=== PATIENT | female | born 1960 | race Caucasian/White ===

== ENCOUNTER 2018-06-26 15:20 | Outpatient (REF) | payer BC, SELFPAY ==
[2018-06-26 19:25] LABS: HGB 13.2 g/dL (12.0-15.5); Mean Corpuscular Hemoglobin 30.6 pg (27.0-33.0); Mean Corpuscular Volume 92.6 fL (80-95); Mean Platelet Volume 9.7 fL (8.0-11.0); Platelet Count 345 x1000/uL (130-400); RBC 4.32 m/cumm (4.00-5.20); RBC Distribution Width 13.4 % (11.7-14.6); White Blood Cell Count 6.69 k/cumm (4.4-10.8)
[2018-06-26 19:53] LABS: Iron 90 ug/dL (50-175); Total Iron Binding Capacity 274 ug/dL (250-450); Transferrin Sat 33 % (15-50)
[2018-06-26 20:11] LABS: ESR 13 MM/HR (0-30)
[2018-06-26 20:20] LABS: ALT 22 U/L (12-78); AST 25 U/L (15-37); Albumin 3.6 g/dL (3.4-5.0); Alkaline Phosphatase 99 U/L (46-116); Anion Gap 7.9 mmol/L (3-11); BUN 15 mg/dL (7-18); Bilirubin, Total 0.4 mg/dL (0.2-1.0); CO2 27.1 mmol/L (21.0-32.0); CREATININE 0.65 mg/dL (0.55-1.02); Calcium 8.7 mg/dL (8.5-10.1); Chloride 104 mmol/L (98-107); Ferritin 80 ng/mL (8-388); Folate 11.3 ng/mL (8.6-20.0); Glucose 111 mg/dL (70-100); Potassium 4.6 mmol/L (3.5-5.1); Sodium 139 mmol/L (136-145); TSH (W/Ref FT4) 2.21 uIU/mL (0.358-3.74); Total Protein 6.5 g/dL (6.4-8.2); Vitamin B12 444 pg/mL (193-986)
[2018-06-26 20:33] LABS: C-Reactive Protein 0.35 mg/dL (0.0-0.3)
[2018-06-28 09:29] LABS: Cyclic Citrullinated Peptide <2.5 U/mL (<5.0)
== END 2018-06-26 15:40 ==
LOC: NCHCN 15:20
PROVIDERS: PCP Family Medicine; Visit Provider Family Medicine
DX: M25.539 Pain in unspecified wrist (principal); L65.9 Nonscarring hair loss, unspecified
CPT/HCPCS: 80053; 85027; 85652; 86200; 82607; 82728; 82746; 83540; 83550; 84443; 86140

== ENCOUNTER 2018-06-27 01:37 | Outpatient (CLI) | payer BC, SELFPAY ==
--- NOTE | 2018-06-27 13:26 | DI.RAD_ITS ---
SYMPTOMS/DIAGNOSIS: LEFT SHOULDER PAIN, M25.512 LEFT SHOULDER: There are mild degenerative changes. There is no evidence of a fracture or dislocation.
== END 2018-06-27 01:57 ==
PROVIDERS: PCP Family Medicine; Visit Provider Family Medicine
DX: M25.512 Pain in left shoulder (principal); M19.012 Primary osteoarthritis, left shoulder
CPT/HCPCS: 73030

== ENCOUNTER 2018-07-19 18:16 | Outpatient (REF) | payer BC, SELFPAY ==
[2018-07-19 19:30] LABS: C-Reactive Protein 0.12 mg/dL (0.0-0.3)
[2018-07-21 10:29] LABS: Rheumatoid Factor <8 IU/mL (<12.5)
[2018-07-21 15:44] LABS: Lyme Ab w Rflx to Lyme Confirm Negative
[2018-07-24 13:27] LABS: ANA Interpretation Positive (NEGAT); ANA Titer Pattern 1:320 Speckled
== END 2018-07-19 18:36 ==
LOC: NCHCN 18:16
PROVIDERS: PCP Family Medicine; Visit Provider Family Medicine
DX: M25.40 Effusion, unspecified joint (principal)
CPT/HCPCS: 86038; 86140; 86431; 86618

== ENCOUNTER 2018-08-20 21:50 | Emergency (ER) | payer BC, SELFPAY ==
[2018-08-20 21:57] VITALS: BP 130/70; PULSE 73; RESP 16; TEMP 36.7; O2SAT 100
--- NOTE | 2018-08-20 22:52 | ED.GENADUL_ITS ---
Discharge Plan Disposition Patient Disposition: HOME Condition: Stable Discharge Details Chief Complaint: FacialProb Clinical Impression: Erythema of face, Head injury, acute, without loss of consciousness Reason For Visit: bumped head Primary Care Provider: Johnny Prather ED Provider: Jojo Charles Home Meds and New Rx's Prescriptions: Continued cholecalciferol (vitamin D3) [Vitamin D3] 2,000 UNIT capsule 2,000 unit PO DAILY RF: 0 Discharge Instructions Instructions: Cellulitis (ED), Sunburn (ED), Head Injury (ED) Additional Instructions: Apply topical Neosporin and/or ice to the left facial cheek. Take Tylenol as needed and directed for any pain. Follow-up with your primary care doctor in 1 week for reevaluation as needed. Return immediately to the emergency department any worsening or new concerning symptoms. Discharge Data Discharge Date/Time-TO BE ENTERED AT DEPARTURE: 08/20/18 23:08 Discharge Physician: Jojo Charles Medical Decision Making 58-year-old female who presents with left-sided facial redness and swelling since this afternoon. She admits to head injury earlier today in which she stood up quickly and hit the back of her head on a door. She admitted to some mild headache today 1/10 but denied any LOC, vomiting, dizziness, blurry vision, neck pain at the time or since her head injury. She states sometime this afternoon she noted left-sided facial redness with very mild tenderness to touch. She denies fever, nasal discharge, congestion, dental pain, recent injury, recent bite, new medication soaps, lotions, detergents. Discussed with patient that it appears unlikely that her left-sided facial redness and swelling with mild tenderness is due to her head injury. She stated that she was driving in the car today with the sun on her face, and she thinks it may be possibly a sunburn. As the left face is warm to touch, this could be a possibility. Other possibilities include an early sinus infection, dental infection, local minor skin infection, or allergy, although allergy seems less likely as there is no itching. Also discussed at length her head injury and that as she had no serious mechanism, no LOC, vomiting, altered mental status, severe headache, dizziness, no blood thinners, head injury appears minor. As patient states her headache is 1/10 and she has no other associated symptoms, CT head appears unnecessary and patient is agreeable. She is still offered a CT head but she declines at this time. Patient was recommended to apply ice and topical Neosporin to her left facial cheek. She is instructed to return immediately to the emergency department if she has any acute worsening of symptoms such as persistent or worsening headaches, vomiting, or any worsening signs of infection to her face. HPI General Mode of arrival: ambulatory . Date/Time Provider Initiated Documentation: 08/20/18 22:03 . Limitations to Documentation: no limitations . Information obtained by: patient . HPI Narrative: Pt is a 58-year-old female who presents with left-sided facial redness and swelling since this afternoon. She admits to head injury earlier today in which she stood up quickly and hit the back of her head on a door. She admitted to some mild headache today of level pain 110 but denied any LOC, vomiting, dizziness, blurry vision, neck pain at the time or since her head injury. She stated sometime later this afternoon she noted left-sided facial redness with very mild tenderness to touch . She denies fever, nasal discharge, congestion, dental pain, recent injury, recent bite, new medication soaps, lotions, detergents. She states the head injury did not concern her at all and that the only reason she came to the ED was because of the facial redness and she was unsure if the two were related. She denies any itching of face. Related Data Home Medications Medication Instructions Recorded Confirmed cholecalciferol (vitamin D3) 2,000 unit PO DAILY 11/23/17 08/14/18 [Vitamin D3] Allergies Allergy/AdvReac Type Severity Reaction Status Date / Time No Known Allergies Allergy Unverified 08/14/18 14:48 General Stated Complaint: FacialProb CARMELO: 3 Review of Systems Review of Systems All systems reviewed & are unremarkable except as noted in HPI and below Constitutional Reports as per HPI, Denies chills and Denies fever(s) Eyes Denies blurry vision ENT Denies dizziness, Denies sore throat and Denies throat swelling Cardiovascular Denies chest pain and Denies dyspnea Respiratory Denies dyspnea Gastrointestinal Denies abdominal pain, Denies diarrhea and Denies vomiting Genitourinary Denies hematuria and Denies dysuria Musculoskeletal Denies back pain and Denies numbness Integumentary/Breasts Denies lesions and Denies rash Neurologic Denies dizziness and Denies numbness Allergic/Immunologic Denies throat swelling [facility] Medical History Endometrial cancer (Acute) Multiple sclerosis Oculopharyngeal muscular dystrophy Surgical History History of eye surgery (Acute) Abdominal hysterectomy Herniated Disc Repair Oophrectomy, Both Social History Smoking/Tobacco Use Status: Former Tobacco Use alcohol intake: current alcohol intake frequency: a few times a month substance use type: does not use Exam Const General: cooperative, healthy appearing and no acute distress HENMT Head: normal to inspection, no contusions, no hematomas and no lacerations Ears: hearing grossly normal bilaterally, external ears normal and TM's normal bilaterally General nose exam: external nose normal Face images: 1. minimal erythema. No induration, fluctuance, rash, lesions Mouth: oral mucosae normal Teeth and gingiva: dentition normal Throat: posterior oropharynx normal Eyes General: appearance normal, both eyes and all related structures Pupils: PERRL EOM: EOM intact bilaterally Neck Neck: normal visual inspection and No submandibular swelling Lymphatic: no lymphadenopathy noted Resp Effort & Inspection: normal respiratory effort and able to speak in complete sentences Cardio Rate: regular rate Skin General skin exam: no rashes or lesions noted Neuro General: alert, awake, oriented x3 and moves all extremities Cranial Nerves: CN's II-XI intact bilaterally Cognition: normal cognition Speech: speech normal Motor: muscle tone normal throughout and strength 5/5 throughout Sensory Exam: no sensory deficits noted Extrem General: normal to inspection and full ROM Psych Appearance: grossly normal Mental Status: mental status grossly normal Speech and Movement: speech and movement normal Affect: normal affect Course Vital Signs Temperature 98.1 F 08/20/18 21:57 Pulse 73 08/20/18 21:57 Respiratory Rate 16 08/20/18 21:57 Blood Pressure 130/70 08/20/18 21:57 Pulse Oximetry 100 08/20/18 21:57 Temperature 98.1 F 08/20/18 21:57 Temperature Source Tympanic 08/20/18 21:57 Pulse 73 08/20/18 21:57 Respiratory Rate 16 08/20/18 21:57 Respiratory Effort 08/20/18 22:01 Blood Pressure 130/70 08/20/18 21:57 Pulse Oximetry 100 08/20/18 21:57 Oxygen Delivery Method Room Air 08/20/18 21:57 Oxygen Flow Rate 0 08/20/18 21:57 Pain Level 3 08/20/18 21:57
== END 2018-08-20 23:08 | disposition home or self-care (01) ==
PROVIDERS: Emergency Provider Physician Assistant; PCP Family Medicine
DX: S06.0X0A Concussion without loss of consciousness, initial encounter (principal); S00.83XA Contusion of other part of head, initial encounter; W22.8XXA Striking against or struck by other objects, initial encounter; Z53.29 Procedure and treatment not carried out because of patient's decision for other reasons
CPT/HCPCS: 99283

== ENCOUNTER 2018-08-22 15:39 | Outpatient (REF) | payer BC, SELFPAY ==
[2018-08-22 19:24] LABS: Creatine Kinase 206 U/L (26-192)
== END 2018-08-22 15:59 ==
LOC: NCHCN 15:39
PROVIDERS: PCP Family Medicine; Visit Provider Family Medicine
DX: R21 Rash and other nonspecific skin eruption (principal)
CPT/HCPCS: 82550

== ENCOUNTER 2018-10-02 00:36 | Outpatient (CLI) | payer BC, SELFPAY ==
--- NOTE | 2018-10-02 10:00 | DI.CT_ITS ---
SYMPTOMS/DIAGNOSIS: FACIAL PAIN LT, 1 MONTH PAIN WITH OVERLYING ERYTHEMA AND SWELLING, NOT CONSISTENT WITH INFECTION, R51 FACIAL CT: Post contrast exam was performed. The sinuses are clear throughout. The orbits and visualized portions of the brain appear normal. The [place] vasculature is well seen and appears normal. There is some artifact related to dental work. The mastoid air cells appear clear. There is ernesto bullosa of the left middle turbinate. No areas of bony destruction are seen. IMPRESSION: Negative facial CT. No evidence of mass, facial fracture or sinus disease.
[2018-10-02 10:28] LABS: CREATININE 0.79 mg/dL (0.55-1.02)
[2018-10-02] MEDS: Omnipaque 350 MG/ML 100 ML BTL IJ (11:26)
== END 2018-10-02 00:56 ==
PROVIDERS: PCP Family Medicine; Visit Provider Family Medicine
DX: R51 Headache (principal); L53.9 Erythematous condition, unspecified; R22.0 Localized swelling, mass and lump, head
CPT/HCPCS: 36415; 70487; 82565; J3490

== ENCOUNTER 2018-11-23 00:07 | Outpatient (CLI) | payer BC, SELFPAY ==
--- NOTE | 2018-11-23 13:28 | DI.MAMMO_ITS ---
SYMPTOMS/DIAGNOSIS: SCREENING, Z12.31 MAMMOGRAMS: Mammograms were interpreted according to the usual protocol including computer analysis with CAD system, tomosynthesis and C view imaging. The breasts are very dense. No dominant mass or clumped microcalcification identified in either breast. Current examination is compared with the previous examinations including September 2017 and there has been no gross interval change in appearance in comparison with the previous studies. CONCLUSION: No specific evidence of malignancy at this time. Routine screening examinations are suggested at yearly intervals in this age group according to the ACS/ACR guidelines. Category 1, breast density category D. MQSA ASSESSMENT OF FINDINGS: Negative. Category 1. Patient will receive a letter notifying them of these results. BI-RADS category D. The breasts are extremely dense, which lowers the sensitivity of mammography.
== END 2018-11-23 00:27 ==
PROVIDERS: PCP Family Medicine; Visit Provider Obstetrics & Gynecology
DX: Z12.31 Encounter for screening mammogram for malignant neoplasm of breast (principal)
CPT/HCPCS: 77063; 77067

== ENCOUNTER 2018-11-29 01:09 | Outpatient (CLI) | payer BC, SELFPAY ==
--- NOTE | 2018-11-29 14:52 | DI.MRI_ITS ---
SYMPTOM/DIAGNOSIS: LT SHOULDER PAIN, WEAKNESS, TENDINITIS LT ROTATOR CUFF, M75.82, DECREASED RANGE OF MOTION LEFT SHOULDER MRI: The study was carried out according to the usual protocol. There is intrasubstance isointensity in the distal supraspinatus tendon consistent with degenerative tendinosis. There is no evidence of a discrete tear. A small bursal surface partial thickness tear involving the insertional zone of the supraspinatus is suggested. There is no evidence of associated myotendinous reaction or muscular atrophy. The infraspinatus tendon is intact. The subscapularus and teres minor tendons are intact. The biceps long head is intact and maintains an appropriate course in the bicipital groove. The biceps labral anchor is intact. The glenohumeral ligaments are normal. No labral tear is seen. The cartilage is unremarkable. There is excessive T 2 hyperintensity in the subacromial and subdeltoid bursa with a small amount of bursal fluid consistent with mild peritendonitis/bursitis. There is no evidence of lymphadenopathy. Minimal degenerative hypertrophic bony changes involving the left AC joint are demonstrated without undersurface spurring or medial arch stenosis. Mild lateral acromial downsloping is noted with minimal undersurface excrescence formation producing mild lateral arch stenosis. The glenohumeral alignment is normal. There are no fractures or bony contusions. SUMMARY: There is a small, 4 by 4 mm. partial thickness bursal surface tear involving the infraspinatus insertional zone estimated at 30% thickness. There is no evidence of associated myotendinous retraction or muscle atrophy. There is mild associated peritendinitis bursitis. Mild intrasubstance degeneration of the distal supraspinatus tendon with no evidence of supraspinatus tear. There is mild lateral acromial downsloping which produces mild lateral arch stenosis.
--- NOTE | 2018-11-29 20:04 | DI.VRAD_ITS ---
EXAM: MR Left Upper Extremity Joint Without Contrast, Shoulder EXAM DATE/TIME: 11/29/2018 3:41 PM CLINICAL HISTORY: 58 years old, female; Pain; Shoulder; Left; Patient HX: Decreased rom, weakness TECHNIQUE: Imaging protocol: MR of the Left upper extremity without contrast. Exam focused on the shoulder. COMPARISON: CR XR shoulder LT complete 2+V 06/27/2018 1:16 PM FINDINGS: TENDONS: Supraspinatus: There is intrasubstance isointensity in the distal supraspinatus tendon consistent with degenerative tendinosis without discrete supraspinatus tendon tear. There is a small bursal surface partial thickness tear involving the insertional zone of the supraspinatus best appreciated on coronal T2 series 6 image 10 measuring about 4 mm longitudinal by 4 mm AP. No evidence of associated myotendinous retraction or muscular atrophy. Infraspinatus: Infraspinatus is intact. Subscapularis is intact. Subscapularis: See Infraspinatus Finding. Teres minor: Unremarkable. No evidence of tear. Biceps brachii, long head: The biceps long head tendon is intact and maintains an appropriate course in the bicipital groove. The biceps labral anchor complex is intact. LIGAMENTS: Glenohumeral: Unremarkable. Glenoid labrum: No labral tears are identified. Cartilage: Unremarkable. Fluid: No joint effusion or synovitis. Muscles: See Supraspinatus Finding. Soft tissues: There is excessive T2 hyperintensity in the subacromial/subdeltoid bursa with a small amount of bursal fluid consistent with mild peritendinitis/bursitis. Lymph nodes: No axillary adenopathy. Bones/joints: Minimal degenerative hypertrophic changes in the left a.c. joint without undersurface spurring or medial arch stenosis. Mild lateral acromial downsloping with minimal undersurface excrescence formation producing mild lateral arch stenosis. Glenohumeral alignment is normal. Reticular surfaces of the glenohumeral joint are well maintained. No fractures or bone contusions. IMPRESSION: 1. There is a small 4 x 4 millimeter partial-thickness bursal surface tear involving the infraspinatus insertional zone, estimated at 30% thickness. No evidence of associated myotendinous retraction or muscular atrophy. 2. Mild associated peritendinitis/bursitis. 3. Mild intrasubstance degeneration in the distal supraspinatus tendon with no evidence of supraspinatus tendon tear. 4. Mild lateral acromial downsloping producing mild lateral arch stenosis. Dictated and Authenticated by: Johnny Higgins MD. Ordering:MASTER Zapata MD
== END 2018-11-29 01:29 ==
PROVIDERS: PCP Family Medicine; Visit Provider Student in an Organized Health Care Education/Training Program
DX: M25.512 Pain in left shoulder (principal); M75.82 Other shoulder lesions, left shoulder; S46.021A Laceration of muscle(s) and tendon(s) of the rotator cuff of right shoulder, initial encounter; M75.52 Bursitis of left shoulder
CPT/HCPCS: 73221

== ENCOUNTER 2018-12-21 12:30 | Outpatient (REF) | payer BC, SELFPAY ==
[2018-12-23 22:22] LABS: Anaplasma phagocytophilum Negative (Negative); B. miyamotoi PCR Negative (Negative); Babesia divergens/MO-1 Negative (Negative); Babesia duncani Negative (Negative); Babesia microti Negative (Negative); Ehrlichia chaffeensis Negative (Negative); Ehrlichia ewingii/canis Negative (Negative); Ehrlichia muris eauclairensis Negative (Negative)
[2018-12-25 12:09] LABS: Lyme Ab w Rflx to Lyme Confirm Negative
== END 2018-12-21 12:50 ==
LOC: NCHCN 12:30
PROVIDERS: PCP Family Medicine; Visit Provider Family Medicine
DX: R21 Rash and other nonspecific skin eruption (principal)
CPT/HCPCS: 86618; 87798

== ENCOUNTER 2019-01-19 10:41 | Outpatient (REF) | payer BC, SELFPAY ==
[2019-01-21 21:33] LABS: Anaplasma phagocytophilum Negative (Negative); B. miyamotoi PCR Negative (Negative); Babesia divergens/MO-1 Negative (Negative); Babesia duncani Negative (Negative); Babesia microti Negative (Negative); Ehrlichia chaffeensis Negative (Negative); Ehrlichia ewingii/canis Negative (Negative); Ehrlichia muris eauclairensis Negative (Negative)
[2019-01-22 11:57] LABS: Lyme Ab w Rflx to Lyme Confirm Negative
== END 2019-01-19 11:01 ==
LOC: NCHCN 10:41
PROVIDERS: PCP Family Medicine; Visit Provider Family Medicine
DX: R21 Rash and other nonspecific skin eruption (principal)
CPT/HCPCS: 87798; 86618

== ENCOUNTER 2019-07-02 14:30 | Outpatient (CLI) | payer OTHER, SELFPAY ==
--- NOTE | 2019-07-02 11:58 | DI.RAD_ITS ---
EXAM: XR KNEE RT 3V AP,LAT,CHICHO INDICATION: BILAT KNEE PAIN, M25.569. COMPARISON: LEFT KNEE 3 VIEW COMPLETE from 12/14/2013 TECHNIQUE: 2D digital imaging was performed. FINDINGS: Joint spaces are well maintained. There is minimal periarticular spurring. No joint effusion is see n. IMPRESSION: No acute abnormality.
--- NOTE | 2019-07-02 11:58 | DI.RAD_ITS ---
EXAM: XR KNEE LT 3V AP,LAT,CHICHO INDICATION: BILAT KNEE PAIN, M25.569. COMPARISON: LEFT KNEE 3 VIEW COMPLETE from 12/14/2013 XR KNEE RT 3V AP,LAT,CHICHO from 07/02/2019 TECHNIQUE: 2D digital imaging was performed. FINDINGS: The joint spaces are well maintained. There is mild periarticular spurring. No joint effusion is se en. IMPRESSION: Minimal degenerative changes.
== END 2019-07-02 14:50 ==
PROVIDERS: PCP Family Medicine; Visit Provider Family Medicine
DX: M25.561 Pain in right knee (principal); M25.562 Pain in left knee; M17.12 Unilateral primary osteoarthritis, left knee
CPT/HCPCS: 73562

== ENCOUNTER 2019-07-03 00:50 | Outpatient (CLI) | payer OTHER, SELFPAY ==
--- NOTE | 2019-07-03 12:30 | DI.CT_ITS ---
EXAM: CT CHEST W CLINICAL HISTORY: OCULOPHARYNGEAL DYSTROPHY AND DERMATOMYOSITIS, INCREASED PULIDO, LOOKING AT LUNG PARE NCHYMA FOR SIGNS OF INTERSTITIAL INFLAMMATION TECHNIQUE: 100 cc Omnipaque 350 IV. COMPARISON: XR shoulder LT complete 2+V from 06/27/2018 FINDINGS: There is scarring at both lung apices. There are mild tree-in-bud type densities in the medial aspec t of the right lower lobe. Remainder of the lungs appear clear. There are no significant ground-gla ss opacities, evidence of consolidation, significant atelectasis or honeycombing. Tracheobronchial t ree appears normal. The heart size is normal. The aorta is normal in diameter. No adenopathy is se en. The visualized portions of the upper abdominal organs are unremarkable. No bony abnormalities a re seen. IMPRESSION: Mild biapical scarring. Mild tree-in-bud opacities in the medial right lung base.
[2019-07-03 12:35] LABS: CREATININE 0.62 mg/dL (0.55-1.02)
[2019-07-03] MEDS: Omnipaque 350 MG/ML 100 ML BTL IJ (13:17)
== END 2019-07-03 01:10 ==
PROVIDERS: PCP Family Medicine; Visit Provider Internal Medicine Rheumatology
DX: R06.09 Other forms of dyspnea (principal); J98.4 Other disorders of lung; G71.09 Other specified muscular dystrophies; M33.90 Dermatopolymyositis, unspecified, organ involvement unspecified; Z13.89 Encounter for screening for other disorder
CPT/HCPCS: 71260; 82565; J3490

== ENCOUNTER 2019-09-17 02:43 | Outpatient (CLI) | payer OTHER, SELFPAY ==
--- NOTE | 2019-10-18 12:35 | W.CARDEVENT ---
Date of service: 10/18/19 Time of Service: 12:35 Cardiac Event Recorder Cardiac Event Note: This is a 1 month event recorder ordered for the indication of palpitations. ?Patient was in normal sinus rhythm for the majority of the recording with an average heart rate of 57 bpm. ?There were 3 patient triggered events which were associated with sinus rhythm and sinus arrhythmia. ?There was one automatically triggered event which was associated with sinus rhythm. ?There was no episodes of atrial fibrillation, no episodes of ventricular tachycardia and no evidence of high degree heart block.
== END 2019-09-17 03:03 ==
PROVIDERS: PCP Family Medicine; Visit Provider Family Medicine
DX: R00.2 Palpitations (principal)
CPT/HCPCS: 93270

== ENCOUNTER 2020-03-26 01:37 | Outpatient (CLI) | payer BC, SELFPAY ==
--- NOTE | 2020-03-26 | DI.MAMMO_ITS ---
EXAM: MG MAMMO SCREENING CLINICAL HISTORY: SCREENING, Z12.39. TECHNIQUE: Bilateral full field digital CC and MLO mammographic images were obtained with 3D tomosyn thesis and utilizing computer aided detection (CAD). COMPARISON: 2009 through 2018 FINDINGS: Masses/Architectural Distortion: None seen. Microcalcifications: No suspicious pleomorphic-type are seen. Skin Thickening/Nipple Retraction: None. IMPRESSION: 1. No significant interval change with no specific features of malignancy noted. 2. Unless there is more urgent need, annual screening mammography is recommended, as per [place] [employer] guidelines. BI-RADS Category 1:Negative Breast Density Category D:Extremely Dense Breast Density Category D: The mammogram demonstrates the patient's breast tissue is dense. Dense cookie ast tissue is very common and is not abnormal but dense breast tissue can make it harder to find canc er on a mammogram. Also, dense breast tissue may increase their breast cancer risk. This information about the result of the mammogram report was provided to the patient to raise their awareness. Use th is report when you speak with the patient about their risks for breast cancer, which includes their f amily history. At that time, you may recommend for more screening tests (Ultrasound or MRI) as they m ight be useful based on their risk. A negative radiographic report should not delay biopsy if a dominant or clinically suspicious mass is present. Up to ten percent of cancers are not identified on mammography. A negative report may reinforce clinical impression. Adenosis and dense breasts may obscure an underlying neoplasm. False positive reports average 6 to 10%.
== END 2020-03-26 01:57 ==
PROVIDERS: PCP Family Medicine; Visit Provider Obstetrics & Gynecology
DX: Z12.31 Encounter for screening mammogram for malignant neoplasm of breast (principal); R92.2 Inconclusive mammogram
CPT/HCPCS: 77063; 77067

== ENCOUNTER 2021-03-20 11:17 | Outpatient (REF) | payer BC, SELFPAY ==
[2021-03-20 14:22] LABS: HCT 39.6 % (36.0-46.0); HGB 12.8 g/dL (11.2-15.7); MCHC 32.3 % (32.0-36.0); MPV 9.4 fL (8.0-11.0); Platelet Count 332 10^3/uL (130-400); RBC 4.26 10^6/uL (3.93-5.22); RDW 12.7 % (11.7-14.6); RDW-SD 43.8 fL; WBC 5.86 10^3/uL (4.4-10.8)
[2021-03-20 14:54] LABS: ALT 29 U/L (14-59); AST 22 U/L (15-37); Albumin 3.7 g/dL (3.4-5.0); Alkaline Phosphatase 94 U/L (46-116); Anion Gap 4.9 mmol/L (3-11); BUN 16 mg/dL (7-18); Bilirubin, Total 0.4 mg/dL (0.2-1.0); CO2 30.1 mmol/L (21.0-32.0); CREATININE 0.6 mg/dL (0.55-1.02); Calcium 9.1 mg/dL (8.5-10.1); Chloride 106 mmol/L (98-107); Glucose 99 mg/dL (74-106); Potassium 4.4 mmol/L (3.5-5.1); Sodium 141 mmol/L (136-145); TSH (W/Ref FT4) 1.69 uIU/mL (0.36-3.74); Total Protein 6.9 g/dL (6.4-8.2)
[2021-03-20 15:08] LABS: Bilirubin Negative (Negative); Blood Trace-intact (Negative); Clarity Clear (Clear); Glucose Negative (Negative); Ketones Negative (Negative); Leukocyte Esterase Negative (Negative); Nitrite Negative (Negative); Specific Gravity 1.015 (1.005-1.025); Urobilinogen 0.2 EU/dL (Up TO 0.2)
[2021-03-20 15:13] LABS: Bacteria Rare HPF (Negative); C & S Indicated? No; Casts Negative LPF (Negative); Crystals Negative HPF (Negative); Epithelial Cells Negative HPF (Negative); Mucus Negative (Negative); Other Cells Negative (Negative); RBC 0-2 HPF (0-2); WBC Negative HPF (0-5)
[2021-03-23 10:26] LABS: Lyme Ab w Rflx to Lyme Confirm Negative (Negative)
[2021-03-24 08:51] LABS: Anaplasma phagocytophilum Negative (Negative); B. miyamotoi PCR Negative (Negative); Babesia divergens/MO-1 Negative (Negative); Babesia duncani Negative (Negative); Babesia microti Negative (Negative); Ehrlichia chaffeensis Negative (Negative); Ehrlichia ewingii/canis Negative (Negative); Ehrlichia muris eauclairensis Negative (Negative)
== END 2021-03-20 11:18 | disposition home or self-care (01) ==
LOC: NCHCN 11:17
PROVIDERS: PCP Family Medicine; Visit Provider Family Medicine
DX: R53.83 Other fatigue (principal); R51.9 Headache, unspecified; W57.XXXA Bitten or stung by nonvenomous insect and other nonvenomous arthropods, initial encounter; T14.8XXA Other injury of unspecified body region, initial encounter; Z13.1 Encounter for screening for diabetes mellitus; M54.9 Dorsalgia, unspecified
CPT/HCPCS: 80053; 85027; 87798; 81003; 81015; 83036; 84443; 86618

== ENCOUNTER 2021-07-23 15:42 | Outpatient (REF) | payer BC, SELFPAY ==
[2021-07-27 11:18] LABS: Lyme Ab w Rflx to Lyme Confirm Negative (Negative)
== END 2021-07-23 15:43 | disposition home or self-care (01) ==
LOC: NCHCN 15:42
PROVIDERS: PCP Family Medicine; Visit Provider Family Medicine
DX: Z00.00 Encounter for general adult medical examination without abnormal findings (principal)
CPT/HCPCS: 86618

== ENCOUNTER 2021-09-01 02:56 | Outpatient (CLI) | payer BC, SELFPAY ==
--- NOTE | 2021-09-01 11:43 | DI.MAMMO_ITS ---
Exam(s) MAMMO SCREENING EXAM: MAMMO SCREENING CLINICAL HISTORY: SCREENING FOR BREAST CANCER Z12.39 TECHNIQUE: Bilateral full field digital CC and MLO mammographic images were obtained with 3D tomosyn thesis and utilizing computer aided detection (CAD). COMPARISON: Available for comparison. FINDINGS: Masses/Architectural Distortion: None seen. Microcalcifications: No suspicious pleomorphic-type are seen. Skin Thickening/Nipple Retraction: None. IMPRESSION: 1. No significant interval change with no specific features of malignancy noted. 2. Unless there is more urgent need, screening mammography is recommended, as per [place] [employer] guidelines. BI-RADS Category 1 - Negative Breast Density - Category D - Extremely dense Breast density category C or D implies that the patient has dense breast tissue. Dense breast tissue is very common and is not abnormal but dense breast tissue can make it harder to find cancer on a ma mmogram. Also, dense breast tissue may increase their breast cancer risk. This information about the result of the mammogram report was provided to the patient to raise their awareness. Use this report when you speak with the patient about their risks for breast cancer, which includes their family hist ory. At that time, you may recommend for more screening tests (Ultrasound or MRI) as they might be us eful based on their risk. A negative radiographic report should not delay biopsy if a dominant or clinically suspicious mass is present. Up to ten percent of cancers are not identified on mammography. A negative report may reinforce clinical impression. Adenosis and dense breasts may obscure an underlying neoplasm. False positive reports average 6 to 10%. Patient will receive a letter notifying them of these results.
== END 2021-09-01 03:16 ==
PROVIDERS: PCP Family Medicine; Visit Provider Family Medicine
DX: Z12.31 Encounter for screening mammogram for malignant neoplasm of breast (principal)
CPT/HCPCS: 77063; 77067

== ENCOUNTER 2021-09-16 15:48 | Outpatient (REF) | payer BC, SELFPAY ==
[2021-09-16 19:42] LABS: ESR 6 mm/hr (0-30)
[2021-09-16 19:45] LABS: C-Reactive Protein 0.27 mg/dL (0.0-0.3); Creatine Kinase 204 U/L (26-192)
[2021-09-16 20:13] LABS: Calculated LDL 66 mg/dL (<100); Cholesterol 149 mg/dL (<200); HDL Cholesterol 65 mg/dL (40-60); Triglyceride 92 mg/dL (<150)
[2021-09-18 13:14] LABS: Albumin 57.8 % (55.8-66.1); Total Protein 6.6 g/dL (6.3-8.2)
== END 2021-09-16 15:49 | disposition home or self-care (01) ==
LOC: NCHCN 15:48
PROVIDERS: PCP Family Medicine; Visit Provider Family Medicine
DX: R73.03 Prediabetes (principal); M13.89 Other specified arthritis, multiple sites; Z13.220 Encounter for screening for lipoid disorders
CPT/HCPCS: 80061; 82550; 85652; 83036; 84165; 86140

== ENCOUNTER 2021-12-12 14:15 | Outpatient (REF) | payer BC, SELFPAY ==
[2021-12-12 19:08] LABS: Abs Immature Grans 0.01 10^3/uL (0.0-0.06); Absolute Basophil Count 0.03 10^3/uL (0.0-0.2); Absolute Eosinophil Count 0.08 10^3/uL (0.0-0.7); Absolute Lymphocyte Count 1.25 10^3/uL (1.2-3.4); Absolute Monocyte Count 0.83 10^3/uL (0.1-0.8); Absolute Neutrophil Count 4.35 10^3/uL (1.2-6.7); Basophils % 0.5; Eosinophils % 1.2; HCT 38.7 % (36.0-46.0); HGB 12.4 g/dL (11.2-15.7); Immature Grans % 0.2; Lymphocytes % 19.1; MCH 30.3 pg (27.0-33.0); MCV 95 fL (80-95); MPV 9.6 fL (8.0-11.0); Monocytes % 12.7; Neutrophils % 66.3; Platelet Count 333 10^3/uL (130-400); RBC 4.09 10^6/uL (3.93-5.22); RDW 12.7 % (11.7-14.6); RDW-SD 44.2 fL; WBC 6.55 10^3/uL (4.4-10.8)
== END 2021-12-12 14:16 | disposition home or self-care (01) ==
LOC: LBN 14:15
PROVIDERS: PCP Family Medicine; Visit Provider Physician Assistant Medical
DX: R10.9 Unspecified abdominal pain (principal)
CPT/HCPCS: 85025

== ENCOUNTER 2022-01-20 20:11 | Emergency (ER) | payer BC, SELFPAY ==
[2022-01-20 20:20] VITALS: BP 109/71; PULSE 65; RESP 18; O2SAT 96
--- NOTE | 2022-01-20 20:45 | DI.RAD_ITS ---
Exam(s) XR HAND RT COMPLETE EXAM: XR HAND RT COMPLETE CLINICAL HISTORY: fall/pain. TECHNIQUE: 2D digital imaging was performed. COMPARISON: No exams were available for comparison FINDINGS: 3 views There is no evidence of fracture or dislocation. Bone density normal. No osseous lesions nor erosio ns. No radiopaque foreign body. IMPRESSION: No fracture evident DATA REPOSITORY: RADIATION DOSE DELIVERED:
--- NOTE | 2022-01-20 20:45 | DI.RAD_ITS ---
Exam(s) XR ELBOW RT COMPLETE EXAM: XR ELBOW RT COMPLETE CLINICAL HISTORY: fall/pain. TECHNIQUE: 2D digital imaging was performed. COMPARISON: No exams were available for comparison FINDINGS: Two views There is a distracted fracture of the olecranon process of the proximal ulna. No fractures evident o f the radial head and neck nor of the epicondyles. Cortical changes at the lateral epicondyle are mo st probably related to epicondylitis. Prominent soft tissue swelling over the olecranon bursa region noted IMPRESSION: There is an acute fracture of the olecranon on fossa with significant distraction of the fracture fra gments. Prominent overlying soft tissue swelling. DATA REPOSITORY: RADIATION DOSE DELIVERED:
--- NOTE | 2022-01-20 20:50 | ED.GENADUL_ITS ---
Discharge Plan Disposition Patient Disposition: HOME Condition: Stable Discharge Details Clinical Impression: Fracture of proximal end of right ulna Primary Care Provider: Hien Montiel ED Provider: Tien Ortega Home Meds and New Rx's Prescriptions: New oxycodone-acetaminophen [Percocet] 5-325 mg tablet 1 tab PO Q8H PRNQty: 8 0RF Continued cholecalciferol (vitamin D3) [Vitamin D3] 2,000 UNIT capsule 2,000 unit PO DAILY Label Comments: 11.23.17 pt states in winter/spring months.HE No Action acetaminophen 325 mg Tablet 650 mg PO PRN PRN ibuprofen [Motrin] 400 mg Tablet 400 mg PO Q6H Discharge Instructions Instructions: Elbow Fracture (ED) Additional Instructions: You have a fracture of your elbow that will require surgery. Wear padding, Mekhi wrap, sling until reevaluation with orthopedics. Percocet as directed, this medication may cause drowsiness and/or constipation, I recommend taking a stool softener while taking this medication. I personally spoke with Dr. Aguero from our orthopedic team, he will have his office reach out to in the next 24-48 hours and likely have surgery on Tuesday. Please watch for new or worsening symptoms and return to the ER for any concerns. Referrals: Benny Aguero MD [ [facility] STAFF PHYSICIAN] - Medical Decision Making This is a 61-year-old female who works knocked to the ground by her dog injuring her right elbow and hand. She reports mild pain at the hand, significant pain at the elbow. She is right-hand dominant. She states that she may have struck her head but denies LOC, headache, visual change, neck pain, vomiting, numbness, tingling, weakness. She is not anticoagulated. Patient with significant swelling and tenderness to the right elbow. Plan is to obtain x-ray of her right elbow and right hand. We will provide 4 mg IM morphine and her abrasion will be cleaned and dressed. X-ray of right hand unremarkable. X-ray of right elbow reveals a displaced olecranon fracture. I spoke with Dr. Aguero, orthopedics. He recommended CT of the elbow, a presurgical COVID test. Recommend either significant padding, Mekhi wrap, sling versus posterior slab splint. His office will contact the patient for likely surgery on Tuesday. The patient would prefer the cast padding, Mekhi wrap and sling. She feels as though the posterior slab would be too heavy and cumbersome. We did discuss that the posterior slab was likely more stable and protective. Mekhi wrap, ample cast padding and sling applied. Patient tolerated well. An additional 4 mg IM morphine given prior to discharge. We will provide a Percocet take-home pack and short-term analgesia prescription. Patient placed on the orthopedic list to help expedite outpatient care. Standard discharge and return precautions were provided. Patient understands, is agreeable to this plan, and has no additional questions or concerns upon discharge. This documentation was generated using [email or web address] system, please disregard any oddities of phrase or misspellings. Medical Records Medical records reviewed: Yes I reviewed the patient's medical records. Imaging Data Radiologic Study: Attestation: I personally reviewed and interpreted this imaging study as f kasias: Imaging: X-Ray Radiologist's impression: PROCEDURE INFORMATION: Exam: XR Right Hand Exam date and time: 01/20/2022 21:29 Age: 61 years old Clinical indication: Injury or trauma; Sprain or strain; Hand; Right; Injury date: 01/20/22; Injury details: Fall/pain TECHNIQUE: Imaging protocol: XR Right hand. Views: 3 or more views. COMPARISON: CR ARTHITIS SERIES- BLOSSOM HAND WRIST 08/04/2017 10:09 FINDINGS: Bones/joints: No acute fracture or subluxation. Scattered minor degenerative changes. Soft tissues: Unremarkable. IMPRESSION: No acute bony pathology. Radiologic Study #2: Attestation: I personally reviewed and interpreted this imaging study as follows: Imaging: X-Ray Radiologist's impression: PROCEDURE INFORMATION: Exam: XR Right Elbow Exam date and time: 01/20/2022 21:31 Age: 61 years old Clinical indication: Injury or trauma; Fracture, traumatic injury; Closed fracture; Elbow; Right; Injury date: 01/20/22; Injury details: Fall/pain TECHNIQUE: Imaging protocol: XR Right elbow. Views: 3 or more views. COMPARISON: CR XR HAND RT COMPLETE 01/20/2022 21:29 FINDINGS: Bones/joints: Acute fracture of the proximal ulna with distraction posteriorly of the olecranon process by 12 mm. No dislocation. Soft tissues: Generalized soft tissue swelling about the elbow with a large joint effusion. IMPRESSION: Acute fracture of the proximal ulna with distraction posteriorly of the olecranon process by 12 mm Radiologic Study #3: Attestation: I personally reviewed and interpreted this imaging study as follows: Imaging: CT Scan Radiologist's impression: PROCEDURE INFORMATION: Exam: CT Right Upper Extremity Without Contrast, Elbow Exam date and time: 01/20/2022 22:16 Age: 61 years old Clinical indication: Injury or trauma; Fracture, traumatic injury; Closed fracture; Elbow; Right; Injury date: 01/20/22; Injury details: Fall/pain TECHNIQUE: Imaging protocol: Computed tomography of the Right upper extremity without contrast. Exam focused on the elbow. Radiation optimization: All CT scans at this facility use at least one of these dose optimization techniques: automated exposure control; mA and/or kV adjustment per patient size (includes targeted exams where dose is matched to clinical indication); or iterative reconstruction. COMPARISON: CR XR ELBOW RT COMPLETE 01/20/2022 21:31 FINDINGS: Bones/joints: Proximal radius in the distal humerus are intact. Acute fracture of the proximal intraarticular in ulna. The olecranon process is distracted posteriorly by 12 mm. No dislocation. Soft tissues: Soft tissue swelling about the elbow most pronounced posteriorly, joint effusion. IMPRESSION: Acute fracture of the proximal intra-articular in ulna. The olecranon process is distracted posteriorly by 12 mm. HPI General Mode of arrival: ambulatory . Date/Time Provider Initiated Documentation: 01/20/22 20:24 . Limitations to Documentation: no limitations . Information obtained by: patient and family . History of Present Illness 61 year old F presents to the emergency department with the chief complaint of R elbow pain, described as severe, with intensity rated at 8. Quality is described as aching, and is localized to the right and upper extremity. Patient reports no radiation. Patient started experiencing this hour(s) (2) and it has been constant. Immobilization improves symptom(s), Movement worsens symptoms . Patient notes no other symptoms.. Patient did receive the following treatments prior to arrival, other (tylenol) Related Data Home Medications Medication Instructions Recorded Confirmed cholecalciferol (vitamin D3) 50 2,000 unit PO DAILY 11/23/17 01/20/22 mcg (2,000 unit) capsule (Vitamin D3) oxycodone-acetaminophen 5 mg-325 1 tab PO Q8H PRN #8 tabs 01/20/22 01/21/22 mg tablet (Percocet) acetaminophen 325 mg tablet 650 mg PO PRN PRN 01/21/22 01/21/22 ibuprofen 400 mg tablet 400 mg PO Q6H 01/21/22 01/21/22 Previous Rx's Medication Instructions Recorded oxycodone-acetaminophen 5 mg-325 1 tab PO Q8H PRN #8 tabs 01/20/22 mg tablet (Percocet) Allergies Allergy/AdvReac Type Severity Reaction Status Date / Time No Known Allergies Allergy Unverified 11/22/18 10:27 General Stated Complaint: Orthopedic CARMELO: 3 Review of Systems Constitutional Constitutional: Denies headache(s) and Denies weakness Eyes Eyes: Denies change in vision ENT Ears, Nose, Mouth, and Throat: Denies headache(s) and Denies neck pain Cardiovascular Cardiovascular: Denies chest pain and Denies dyspnea Respiratory Respiratory: Denies dyspnea Gastrointestinal Gastrointestinal: Denies nausea and Denies vomiting Musculoskeletal Musculoskeletal: Denies back pain, Reports arthralgias, Reports joint swelling, Denies neck pain, Denies numbness, Reports stiffness and Denies tingling Integumentary/Breasts Skin/Breast: Denies rash Neurologic Neurologic: Denies headache(s), Denies numbness, Denies tingling and Denies weakness Hematologic/Lymphatic Hematologic/Lymphatic: Denies easy bleeding and Denies easy bruising PFSH All Active Problems (Updated 01/21/22 @ 09:50 by Nati Cruz RN) Trigger thumb, right thumb (Acute 11/23/17) Trigger thumb, left thumb (Acute 01/11/18) Tendinitis of left rotator cuff (Acute) Displaced fracture of olecranon process of right ulna with intra-articular extension (Acute) Medical History Dermatomyositis Endometrial cancer Multiple sclerosis Oculopharyngeal muscular dystrophy dysphsia Surgical History Abdominal hysterectomy 11/17 Herniated Disc Repair L 5 & 6 2006 History of colonoscopy History of eye surgery Oophrectomy, Both for CA of the endometriosis 11/17 Family History Other Diabetes Social History Smoking/Tobacco Use Status: Former Tobacco Use Smoking risk assessment performed?: Yes Alcohol Intake: current Alcohol Intake frequency: a few times a month Drug use: Never Substance use type: does not use Do you feel safe at home: Yes Do you feel safe in your relationship?: Yes Exam Const General: cooperative, healthy appearing and no acute distress Orientation: alert, awake and oriented x3 HENMA Head: normal to inspection, normocephalic and atraumatic Face and sinus: normal facial exam Mouth: moist mucous membranes Eyes General: appearance normal, both eyes and all related structures Conjunctivae: conjunctivae normal Neck Neck: normal visual inspection, full ROM, trachea midline, supple and nontender Resp Effort & Inspection: normal respiratory effort and able to speak in complete sentences Auscultation: clear to auscultation bilaterally Cardio Rate: regular rate Rhythm: regular rhythm Back/Spine/Pelvis Back: No back tenderness Skin General skin exam: no rashes or lesions noted Neuro General: patient alert, patient awake, patient oriented x3, moves all extremities and no focal motor deficits Cranial Nerves: CN's II-XI intact bilaterally Cognition: normal cognition Speech: speech normal Gait: normal gait Motor: muscle tone normal throughout Sensory Exam: no sensory deficits noted Extrem General: capillary refill normal Other: Right hand fourth digit with minor discomfort to palpation but there is no swelling, erythema, ecchymosis, skin is intact. Full range of motion, 5 x 5 s trength. Normal radial pulse and capillary refill. Wrist, forearm, upper arm and shoulder are all unremarkable. Right elbow with significant posterior swelling and tenderness. Limited range of motion secondary to discomfort. There is an abrasion present but no active bleeding or signs of open fracture. Neuro, vascular, tendon intact. Psych Appearance: grossly normal Mental Status: mental status grossly normal Course Vital Signs Vital signs: Vital Signs Pulse 65 01/20/22 20:20 Respiratory Rate 18 01/20/22 20:20 Blood Pressure 109/71 01/20/22 20:20 Pulse Oximetry 96 01/20/22 20:20 Pulse 65 01/20/22 20:20 Respiratory Rate 18 01/20/22 20:20 Respiratory Effort Non-Labored 01/20/22 20:23 Blood Pressure 109/71 01/20/22 20:20 Blood Pressure Position Supine 01/20/22 20:20 Pulse Oximetry 96 01/20/22 20:20 Oxygen Delivery Method Room Air 01/20/22 20:20 Oxygen Flow Rate 0 01/20/22 20:20 Pain Level 6 01/20/22 20:30 Procedures Orthopedic Splinting/Casting Injury #1: Side: right Upper Extremity Injury Location: elbow Upper Extremity Immobilizer: Mekhi wrap (With ample padding, sling then applied)
[2022-01-20] MEDS: MORPHine 4 MG/ML SYR IM ×2 (21:09→23:15)
--- NOTE | 2022-01-20 22:00 | DI.CT_ITS ---
Exam(s) CT UPPER EXTREMITY RT WO EXAM: CT UPPER EXTREMITY RT WO CLINICAL HISTORY: elbow fracture TECHNIQUE: Imaging Protocol: Axial computed tomography images with coronal and sagittal reformatted images were created and reviewed. CONTRAST MATERIAL: None COMPARISON: Prior x-rays reviewed. FINDINGS: There is an acute fracture of the left reza process of the proximal ulna with 11-12 millimeters dis traction of the fracture fragments. There is no elbow joint dislocation. There is prominent soft ti ssue swelling posteriorly and there is a joint effusion-hemarthrosis. There are no fractures of the radial head and neck nor of the distal humerus. IMPRESSION: Distracted intra-articular fracture of the olecranon process. RADIATION DOSE DELIVERED: 185.25mGy.cm Total DLP DATA REPOSITORY: All CT scans at this facility are submitted to the National Radiology Data Registry (NRDR) Dose Index Registry (DIR) with the [employer] (ACR). RADIATION OPTIMIZATION: All CT scans at this facility use at least one of these dose optimization te chniques: automated exposure control; mA and/or kV adjustment per patient size (includes targeted exa ms where dose is matched to clinical indication); or iterative reconstruction.
--- NOTE | 2022-01-20 22:13 | DI.VRAD_ITS ---
PROCEDURE INFORMATION: Exam: XR Right Hand Exam date and time: 01/20/2022 21:29 Age: 61 years old Clinical indication: Injury or trauma; Sprain or strain; Hand; Right; Injury date: 01/20/22; Injury details: Fall/pain TECHNIQUE: Imaging protocol: XR Right hand. Views: 3 or more views. COMPARISON: CR ARTHITIS SERIES-BLOSSOM HAND WRIST 08/04/2017 10:09 FINDINGS: Bones/joints: No acute fracture or subluxation. Scattered minor degenerative changes. Soft tissues: Unremarkable. IMPRESSION: No acute bony pathology. Dictated and Authenticated by: Theresa Suárez MD. Ordering:MALINDA Chauhan MD
--- NOTE | 2022-01-20 22:14 | DI.VRAD_ITS ---
PROCEDURE INFORMATION: Exam: XR Right Elbow Exam date and time: 01/20/2022 21:31 Age: 61 years old Clinical indication: Injury or trauma; Fracture, traumatic injury; Closed fracture; Elbow; Right; Injury date: 01/20/22; Injury details: Fall/pain TECHNIQUE: Imaging protocol: XR Right elbow. Views: 3 or more views. COMPARISON: CR XR HAND RT COMPLETE 01/20/2022 21:29 FINDINGS: Bones/joints: Acute fracture of the proximal ulna with distraction posteriorly of the olecranon process by 12 mm. No dislocation. Soft tissues: Generalized soft tissue swelling about the elbow with a large joint effusion. IMPRESSION: Acute fracture of the proximal ulna with distraction posteriorly of the olecranon process by 12 mm. Dictated and Authenticated by: Theresa Suárez MD. Ordering:MLAINDA Chauhan MD
--- NOTE | 2022-01-20 22:34 | DI.VRAD_ITS ---
PROCEDURE INFORMATION: Exam: CT Right Upper Extremity Without Contrast, Elbow Exam date and time: 01/20/2022 22:16 Age: 61 years old Clinical indication: Injury or trauma; Fracture, traumatic injury; Closed fracture; Elbow; Right; Injury date: 01/20/22; Injury details: Fall/pain TECHNIQUE: Imaging protocol: Computed tomography of the Right upper extremity without contrast. Exam focused on the elbow. Radiation optimization: All CT scans at this facility use at least one of these dose optimization techniques: automated exposure control; mA and/or kV adjustment per patient size (includes targeted exams where dose is matched to clinical indication); or iterative reconstruction. COMPARISON: CR XR ELBOW RT COMPLETE 01/20/2022 21:31 FINDINGS: Bones/joints: Proximal radius in the distal humerus are intact. Acute fracture of the proximal intra-articular in ulna. The olecranon process is distracted posteriorly by 12 mm. No dislocation. Soft tissues: Soft tissue swelling about the elbow most pronounced posteriorly, joint effusion. IMPRESSION: Acute fracture of the proximal intra-articular in ulna. The olecranon process is distracted posteriorly by 12 mm. Dictated and Authenticated by: Theresa Suárez MD. Ordering:MALINDA Chauhan MD
[2022-01-20 22:58] LABS: Source Nasal/Nares
[2022-01-21 00:39] LABS: COVID-19 PCR Negative (Negative)
== END 2022-01-21 05:06 | disposition home or self-care (01) ==
PROVIDERS: Student in an Organized Health Care Education/Training Program; Emergency Provider Physician Assistant; PCP Family Medicine
DX: S52.031A Displaced fracture of olecranon process with intraarticular extension of right ulna, initial encounter for closed fracture (principal); W54.8XXA Other contact with dog, initial encounter; Y93.K1 Activity, walking an animal; Z20.822 Contact with and (suspected) exposure to COVID-19
CPT/HCPCS: 29105; 87635; 96372; 99284; 73080; 73130; 73200; J2270

== ENCOUNTER 2022-01-22 06:15 | Day surgery (SDC) | payer BC, SELFPAY ==
--- NOTE | 2022-01-21 13:26 | W.ANESPRE ---
General Info Date of Service Date Performed: 01/22/22 Height: 5 ft 4 in Weight: 45 kg Body Mass Index (BMI): 17.0 Surgical Procedure: Operation Date: 01/22/22 07:40 Proposed Procedure Side Surgeon p Olecranon ORIF Right Benny Aguero MD Meds Allergies and Home Medications Allergies Allergy/AdvReac Type Severity Reaction Status Date / Time No Known Allergies Allergy Verified 01/22/22 06:37 Home Medication Medication Instructions Recorded acetaminophen 500 mg tablet 500 mg PO Q6H PRN pain #60 tabs 01/22/22 hydrocodone 5 mg-acetaminophen 325 1 tab PO Q6H PRN severe pain #6 01/22/22 mg tablet tabs ibuprofen 600 mg tablet 600 mg PO TID PRN pain #60 tabs 01/22/22 Current Visit Medications: Current Medications Generic Name Dose Route Start Last Admin Trade Name Freq PRN Reason Stop Dose Admin Ringer's Solution 1,000 mls @ 60 mls/hr 01/22/22 06:00 IV 02/20/22 23:59 INFUSION ISABEL Cefazolin Sodium/Dextrose 1 gm in 50 mls @ 100 mls/hr 01/22/22 06:00 Ancef Duplex IVPB 01/22/22 16:00 PREOP ISABEL IV Miscellaneous Supplies 1 each 01/22/22 06:00 Iv Access IV 02/20/22 23:59 DIRECTED ISABEL Sodium Chloride 0 ml 01/22/22 06:00 Normal Saline Flush 10 Ml Syr IV 02/20/22 23:59 PRN PRN Sodium Chloride 0 ml 01/22/22 06:00 Normal Saline 10 Ml Vial IJ 02/20/22 23:59 DIRECTED PRN Sterile Water 0 ml 01/22/22 06:00 Water,Injection,Sterile 10 Ml Vial IJ 02/20/22 23:59 DIRECTED PRN PFSH Active Problems Active Problems: Problem Status Onset Code Trigger thumb, right thumb 11/23/17 M65.311 Trigger thumb, left thumb 01/11/18 M65.312 Tendinitis of left rotator cuff M75.82 Displaced fracture of olecranon process of right ulna with intra-articular extension S52.031A Medical History Medical History (Updated 01/22/22 @ 06:35 by Alonzo Saucedo) Acute head injury Per patient mild headache from fall 01/19/22. Dermatomyositis Endometrial cancer Multiple sclerosis PER PATIENT SHE DOES NOT HAVE MS. Oculopharyngeal muscular dystrophy dysphagia, CAN NOT LAY FLAT ASPIRATION RISK. EFFECTS MUSCLES IN ESOPHAGUS. Oculopharyngeal muscular dystrophy Pre-diabetes Weakness Per patient she has weakness in her thighs. Surgical History Surgical History Abdominal hysterectomy 11/17 Herniated Disc Repair L 5 & 6 2006 History of colonoscopy History of eye surgery Recent surgery for droopy eye lids, still has stitches per patient. Oophrectomy, Both for CA of the endometriosis 11/17 Tobacco Smoking/Tobacco Use Status: Former Tobacco Use Alcohol Alcohol Intake: current Alcohol intake frequency: other Substance Use Substance use: Never Substance use type: does not use Vital Signs and Lab Results Vital Signs Most Recent Vital Signs in EMR: Temp Pulse Resp BP Pulse Ox 36.3 C L 73 16 116/69 100 01/22/22 06:39 01/22/22 06:39 01/22/22 06:39 01/22/22 06:39 01/22/22 06:39 Lab Results Blood Type / Crossmatch: No Data to Display Complete Blood Count: No Data to Display Complete Metabolic Panel: No Data to Display Liver Function Panel: No Data to Display Coagulation Panel: No Data to Display Cardiac Panel: No Data to Display Arterial Blood Gas: No Data to Display Venous Blood Gas: No Data to Display Pancreas Panel: No Data to Display Thyroid Panel: No Data to Display Infectious Disease: Coronavirus (COVID-19)(PCR) Negative (Negative) 01/20/22 22:50 Coronavirus 2019 Source Nasal/Nares 01/20/22 22:50 Blood Cultures: No Data to Display Toxicology Panel: No Data to Display Imaging and Studies Imaging and Studies Study information below may be from another EMR and interpreted by another provider. Please see original notes in EMR for more complete details. CT Summary: 2019: scaring at both lung apices, mild tree-in-bud type densities in the medial aspect of the right lower lobe. Pulmonary Function Summary: 2019: normal. Anesthesia Assessment and Plan Anesthesia History Personal History: No History of Anesthesia Complications and Delayed Emergence Family History: No Family History of Anesthesia Complications Exercise Tolerance Exercise Tolerance: Metabolic Equivalents>4 Cardiac & Pulmonary Exam Cardiac Exam: Normal S1/S2 Heart Sounds Pulmonary Exam: Clear Bilateral Breath Sounds Implantable Cardiac Device Does patient have a Pacemaker or an ICD?: No Airway Exam Known Difficult Airway: No Mallampati Class: 3 Mouth Opening: Narrow (< 3cm) Thyromental Distance: Less than 3 cm Neck Range of Motion: Limited ROM Neck Circumference: Normal Teeth Condition: Normal Dentition ASA Classification ASA Score: ASA 3 Emergency Case?: No NPO Status NPO Status: NPO Clears >2 hours, Solids >8 hours Anesthesia Plan Resuscitation Status: Full Code Anesthesia Technique: General Anesthesia Airway Planned: Endotracheal Tube Pain Management: Other (rescue block. ) Monitors Used: Standard Monitors Preoperative Comments:: 61 yo female with recent fall striking her head (no LOC) and fracturing her elbow here for an ORIF. Sig PMHx: dermatomyositis, pharyngeal muscular dystrophy, former smoker, With her neuromuscular disorders she does sleep with a wedge to prevent pooling of secretions - was getting a cough at night. Plan: GAETT with HOB @ >20, extubate more on the awake side. Regional discussed with surgeon, local by surgeon, and rescue block if needed.
[2022-01-22] VITALS (7 sets, daily range): BP systolic 100–116; BP diastolic 69–88; PULSE 57–73; RESP 12–16; TEMP 36.2–36.7; O2SAT 98–100; BMI 17.0
[2022-01-22] MEDS: Lactated Ringers 1,000 ML 60 ML IV (07:00)
--- NOTE | 2022-01-22 07:18 | W.PREOPHP ---
Assessment and Plan Assessment and plan (1) Displaced fracture of olecranon process of right ulna with intra-articular extension: Status: Acute Assessment and plan: Bhavna is a 61-year-old who suffered a displaced intra-articular fracture of the right olecranon. CT scan confirms that this is a simple fracture pattern which would be amenable to intramedullary screw fixation. I discussed treatment options with Bhavna and recommend operative fixation, likely intramedullary screw. I discussed other treatment options including plate and screws and tension band/wiring. Her questions were answered. I discussed the risk of operative fixation to include bleeding, infection, pain, stiffness, damage to nerves and vessels, damage to muscle and tendons, hardware prominence, hardware failure, malunion, nonunion, need for repeat procedures, weakness. Despite these risks, she elects to proceed. She will be placed into a soft dressing afterwards with a splint. I did review postoperative precautions and restrictions with her and her . She is NPO. We will proceed with operative fixation of the right olecranon today under general anesthesia. History of Present Illness Narrative: Bhavna is a 61-year-old active female who was walking her dog 3 days ago. She was pulled down by the dog and landed on outstretched right arm eventually landing on a flexed right elbow. She was seen in the emergency department and diagnosed with a displaced intra-articular olecranon fracture. She is here today for fracture fixation given the displaced nature of the fracture. She has had some right hand pain. She denies any specific. She denies any numbness or tingling. Review of Systems All systems reviewed & are unremarkable except as noted in HPI and below PFSH All Active Problems Trigger thumb, right thumb (Acute 11/23/17) Trigger thumb, left thumb (Acute 01/11/18) Tendinitis of left rotator cuff (Acute) Displaced fracture of olecranon process of right ulna with intra-articular extension (Acute) Medical History Acute head injury Per patient mild headache from fall 01/19/22. Dermatomyositis Endometrial cancer Multiple sclerosis PER PATIENT SHE DOES NOT HAVE MS. Oculopharyngeal muscular dystrophy dysphagia, CAN NOT LAY FLAT ASPIRATION RISK. EFFECTS MUSCLES IN ESOPHAGUS. Oculopharyngeal muscular dystrophy Pre-diabetes Weakness Per patient she has weakness in her thighs. Surgical History Abdominal hysterectomy 11/17 Herniated Disc Repair L 5 & 6 2005 History of colonoscopy History of eye surgery Recent surgery for droopy eye lids, still has stitches per patient. Oophrectomy, Both for CA of the endometriosis 11/17 Family History Other Diabetes Social History Smoking/Tobacco Use Status: Former Tobacco Use Smoking risk assessment performed?: Yes Alcohol Intake: current Alcohol Intake frequency: other Drug use: Never Substance use type: does not use Do you feel safe at home: Yes Do you feel safe in your relationship?: Yes Meds Allergies and Home Medications Allergies Allergy/AdvReac Type Severity Reaction Status Date / Time No Known Allergies Allergy Verified 01/22/22 06:37 Home Medications Medication Instructions Recorded Confirmed Type oxycodone-acetaminophen 5 mg-325 1 tab PO Q8H PRN #8 tabs 01/20/22 01/21/22 Rx mg tablet (Percocet) acetaminophen 325 mg tablet 650 mg PO PRN PRN 01/21/22 01/21/22 History ibuprofen 400 mg tablet 400 mg PO Q6H 01/21/22 01/21/22 History Exam Const General: cooperative, healthy appearing, comfortable and no acute distress Nutritional Appearance: average body habitus Orientation: alert, awake and oriented x3 Resp Auscultation: clear to auscultation bilaterally Cardio Rate: regular rate Rhythm: regular rhythm Extrem Other: Right elbow is wrapped in a splint. There is notable swelling seen in the forearm and the hand. She is able to actively extend and flex the right wrist. Sensation intact to light touch of the median, radial, ulnar nerve. Palpable radial pulse. Results Imaging Imaging Studies: X-ray of the right elbow demonstrates a displaced fracture of the olecranon. This is intra-articular. See CT scan of the right elbow demonstrates the above-mentioned fracture. While the fracture is irregular it is not comminuted. There is no loose fracture pieces. There is no compressed articular components. Last Vital Signs Temp 36.3 C L 01/22/22 06:39 Pulse 73 01/22/22 06:39 Resp 16 01/22/22 06:39 BP 116/69 01/22/22 06:39 Pulse Ox 100 01/22/22 06:39
--- NOTE | 2022-01-22 07:21 | W.PM.DSUDISC ---
Discharge Plan Disposition Patient Disposition: HOME Condition: Good Discharge Details Reason For Visit: Right olecranon process fracture Attending Provider: Benny Aguero Primary Care Provider: Hien Montiel Home Meds and New Rx's Prescriptions: New acetaminophen 500 mg tablet 500 mg PO Q6H PRN (Reason: pain) Qty: 60 2RF hydrocodone-acetaminophen 5-325 mg tablet 1 tab PO Q6H PRN (Reason: severe pain) Qty: 6 0RF Rx Instructions: Take one tablet up to every 6 hours as needed for severe postoperative pain ibuprofen 600 mg tablet 600 mg PO TID PRN (Reason: pain) Qty: 60 0RF Discontinued oxycodone-acetaminophen [Percocet] 5-325 mg tablet 1 tab PO Q8H PRNQty: 8 0RF acetaminophen 325 mg Tablet 650 mg PO PRN PRN ibuprofen [Motrin] 400 mg Tablet 400 mg PO Q6H Discharge Instructions Additional Instructions: Olecranon Frature Discharge Instructions Activity: You should stay in the sling for comfort. If the MARCELO is too tight you my remove and rewrap. Gentle motion of the right arm including the hand, wrist, and fingers is okay and encouraged, but avoid repetitive activities and heavy lifting. You may apply ice. You may move the elbow slightly within the dressing but avoid any focused elbow exercises. Medications: - You should take Tylenol and Ibuprofen around the clock. - You have been prescribed Hydrocodone for breakthrough pain. Dressings: - The surgical dressing should stay in place until your follow-up. If it becomes wet or soiled or you desire for it to be removed, it may be removed after 3 days. Until your follow-up appointment, the incision should be covered with gauze or a large band-aid. Follow-up: 10 days Referrals: Benny Aguero MD [ [facility]FF PHYSICIAN] - Equipment/Supplies: Sling Activity:: Elevate Remove Dressings/Wound Care:: Do Not Remove Shower/Bathe:: Cover Diet:: As Tolerated Discharge Orders Discharge Orders: Discharge Order (Routine); Ordered 01/22/22 Ordered By: Alissa Ellison
[2022-01-22] MEDS: ceFAZolin 1 GM/50 ML BAG IVPB (07:41)
[2022-01-22] MEDS: Bupivacaine 0.5% Pres-Free W/EPI 10 ML VIAL (08:42)
--- NOTE | 2022-01-22 08:45 | DI.RAD_ITS ---
Exam(s) XR ELBOW RT LIMITED EXAM: XR ELBOW RT LIMITED CLINICAL HISTORY: Fracture of proximal end of right ulna TECHNIQUE: 2D and realtime digital imaging was performed. COMPARISON: CR,XR XR ELBOW RT COMPLETE from 01/20/2022 FINDINGS: C-arm fluoroscopy was utilized by Dr. Aguero during open reduction and internal fixation proximal f racture of the ulna. Hard copy show leg screw fixation of the fracture fragments. IMPRESSION: RADIATION DOSE DELIVERED: Kathier=0.27 mGy
--- NOTE | 2022-01-22 08:53 | W.PM.OP ---
Date of service: 01/22/22 Time of Service: 08:53 Operative Note Operative Note DATE OF PROCEDURE: 01/22/22 PRE-OP DIAGNOSIS: Right, displaced intra-articular olecranon fracture POST-OP DIAGNOSIS: same PROCEDURE: Open reduction and intramedullary screw fixation of right olecranon fracture SURGEON: Benny Aguero [employer] PROJECT MANAGER: Alissa Ellison ANESTHESIA TYPE: General LMA/ETT Refer to Anesthesia Record ESTIMATED BLOOD LOSS: 10 TOURNIQUET TIME: 0 COMPLICATIONS: None Implants: Synthes 7.3mm cannulated screw, 105mm length Indications: Bhavna is a 61-year-old female who had a fall onto her right elbow. She suffered a displaced intra-articular fracture of the right olecranon. Given the displaced nature of this fracture I recommended surgical stabilization and fixation. I discussed risk of the procedure with her to include bleeding, infection, pain, stiffness, damage to nerves and vessels, damage to muscles and tendons, hardware prominence, hardware failure, need for repeat procedures, malunion, nonunion. Despite these risks, she elected to proceed. Findings: There was a fracture about the right olecranon which was irregular in shape and angled from a dorsal?distal to volar?proximal direction. The fracture was identified, debrided of any early fibrous healing, reduced, and fixed with an intramedullary screw, 7.3 mm cannulated. Procedure Description: Bhavna was greeted in the preoperative holding area. Her identity was confirmed the correct site was identified and marked. The consent was reviewed the patient and signed. History physical was updated. She was taken back to the operating room placed in supine position. Her head of bed was elevated due to some GI motility and esophageal dysmotility issues. All bony problems well-padded. A bump was placed overlying the right side of the chest for the elbow to rest across the chest during part of the procedure. Prophylactic antibiotics in the form of cefazolin were administered. The right arm was prepped ChloraPrep and draped in a standard fashion. A timeout was performed for safe surgery. A slightly curved incision was taken overlying the olecranon process and onto the proximal ulna. There is some minor abrasions which we tried to avoid but had to enter for about 1 cm in length. The skin was incised sharply. Dissection was carried down to the triceps fascia and the fracture and proximal ulna. The fracture was easily identified. Periosteum around the fracture site was elevated to better observe the fracture edges. There is irregular shaped to the fracture itself and there is a noted angled dimension to the fracture exiting more distally over the dorsal surface of the ulna. Using a curette and irrigation I was able to remove any of the early fibrous healing and hematoma. The fracture fragments were distracted and the joint was also irrigated. There is no loose pieces. Once the fracture edges were fully identified and there was no noted comminution, confirming a simple fracture pattern, I then performed a closed reduction. Postreduction was easily maintained and therefore proceeded with the intended procedure of an intramedullary screw fixation. A 2 mm drill was used to create a drill hole over the dorsal surface of the ulna just distal to the fracture for later tension band type fixation. Utilizing this hole I then used a pointed point clamp to help hold the close reduction. Two 1.2 mm K wires were placed on the medial and lateral edges of the olecranon and into the proximal ulna to hold the reduction. This was confirmed to be adequate reduced with direct visualization as well as x-ray. I then inserted the wire from the 7.3 mm cannulated screw system into the tip of the olecranon and into the shaft of the ulna. This was confirmed to be in a good position on the x-ray and advanced until he hit resistance. I then advanced the drill once again until he resistance on the x-ray. Using the tap from the 7.3 mm system, I advanced the tap into the shaft of the ulna. Once it resistance I continued to advance it for a few more turns and marked at this location on the tap. A tap was removed and the location was measured. A 105 mm 7.3 mm cannulated screw was then selected with a washer. This was then advanced into the proximal ulna making sure to control for rotation as was advanced into the proximal ulnar piece. As advanced down the washer was placed underneath the triceps with the use of a vertical incision. This was advanced down and compressed on the proximal ulna, x-rays utilized to ensure that it was adequately reduced. Clamps, K wires, were removed. Final x-rays were performed that showed adequate reduction of the fracture fragment with the washer sitting on the proximal portion of the ulna. AP and lateral x-rays were performed as well as a live lateral x-ray showing full range of motion of the elbow without distraction of the fracture site and with no instability. The wounds were thoroughly irrigated. Skin, soft tissues, and deep periosteum was injected with 0.5% bupivacaine. Using a #2 suture tape, I then performed a tension band type technique through the drill hole of the ulna and through the triceps insertion at the olecranon. This was crossed over in a [id number] position and then tied. The knot was buried. The fascia of the proximal ulna was reapproximated with 0 Vicryl. The triceps fascia which was incised replacement of the screw and the washer was also closed with a #1 Vicryl. Once again the wound was thoroughly irrigated. Deep tissues were closed with a 0 and 2-0 Vicryl followed by a 4-0 nylon. The wounds were dressed with Xeroform, 4 x 4's, ABD, Kerlix and Mekhi wrap. She tolerated procedure well and was awake from anesthesia taken to the PACU in stable condition. She may use the right arm for light activity including some gentle elbow range of motion but she is not to perform any lifting or resisted activity. She may use the hand and fingers as tolerated and this is encouraged. She is to have the sling for comfort and should largely keep it in place until she follows up at 2 weeks.
--- NOTE | 2022-01-22 09:50 | W.ANESPOSTOP ---
Postoperative Evaluation Date, Time and Location Date Performed: 01/22/22 Time Performed: 09:50 Patient Location: PACU Vital Signs Most Recent Imported Vital Signs: Most Recent Vital Signs Temp Pulse Resp BP Pulse Ox 36.7 C 63 16 105/70 99 01/22/22 09:39 01/22/22 09:39 01/22/22 09:39 01/22/22 09:39 01/22/22 09:39 Pain Score Most Recent Pain Score: Most Recent Pain Score Pain Level 0 01/22/22 09:39 Assessment Mental Status: Arousable with meaningful communication Airway and Respiratory Function: Patent airway with normal (patient baseline) respiratory exam Cardiovascular Function: Hemodynamically Stable Hydration Status: Adequately Hydrated Nausea & Vomiting: No Nausea or Vomiting Pain: Pain is tolerable per patient Peripheral Nerve Block: Patient did not receive a nerve block
== END 2022-01-22 10:59 | disposition home or self-care (01) ==
LOC: SUR 11:04
PROVIDERS: PCP Family Medicine; Visit Provider Student in an Organized Health Care Education/Training Program
PROC: (CPT 24685; principal; 2022-01-22 07:30)
DX: S52.031A Displaced fracture of olecranon process with intraarticular extension of right ulna, initial encounter for closed fracture (principal); W18.39XA Other fall on same level, initial encounter; Y93.K1 Activity, walking an animal; G71.09 Other specified muscular dystrophies; R73.03 Prediabetes
CPT/HCPCS: 24685; 73070; J0690; J1100; J1885; J2405

== ENCOUNTER 2022-01-24 14:59 | Emergency (ER) | payer BC, SELFPAY ==
[2022-01-24 15:06] VITALS: BP 115/64; PULSE 75; RESP 18; TEMP 36.9; O2SAT 97
--- NOTE | 2022-01-24 15:42 | ED.GENADUL_ITS ---
Discharge Plan Disposition Patient Disposition: HOME Condition: Stable Discharge Details Clinical Impression: Localized swelling on hand, History of elbow surgery Primary Care Provider: Hien Montiel ED Provider: Regina Garvin Home Meds and New Rx's Prescriptions: Continued acetaminophen 500 mg tablet 500 mg PO Q6H PRN (Reason: pain) Qty: 60 2RF hydrocodone-acetaminophen 5-325 mg tablet 1 tab PO Q6H PRN (Reason: severe pain) Qty: 6 0RF Rx Instructions: Take one tablet up to every 6 hours as needed for severe postoperative pain ibuprofen 600 mg tablet 600 mg PO TID PRN (Reason: pain) Qty: 60 0RF Discharge Instructions Instructions: Elbow Fracture (ED) Additional Instructions: Keep your arm elevated above the level of your heart as much as possible. Continue to apply ice. You may loosen the Mekhi wrap as needed. Please keep your follow-up appointments with orthopedics. Please call the office or the on-call number for Dr. Aguero if any further concerns. Please take Tylenol or Ibuprofen with food every 4-6 hours as needed for pain and swelling. Perform mild range of motion exercises to your right hand. Referrals: Benny Aguero MD [ [facility] STAFF PHYSICIAN] - 3 days Medical Decision Making 61-year-old female presents to the ER with chief complaint of right hand swelling status post elbow surgery on Tuesday. Patient had a open reduction of a elbow olecranon fracture with a screw placed. She reports that she has had increased pain with elevating her arm. She has not remove the bandage that was placed. Spoke with Dr. Aguero regarding patient. She denies any injury or hitting her elbow or severe elbow pain. Mekhi wrap removed and Kerlix dressing removed. I do suspect that she has not been elevating adequately and the Mekhi wrap was on slightly tight. She has not tried to loosen the Mekhi wrap or remove bandage. Dr. Aguero was able to review images that I obtained with the patient's permission of the hand and arm. He does not recommend any further work-up. Radial pulses intact distal sensation intact to all 5 digits. Patient's arm re- bandaged very loosely with Mekhi wrap also applied very loosely. I did discuss at length with patient for home care and elevation strategies. I did discuss strict return instructions. She verbalized understanding. Patient left without discharge papers. This text was generated using [employer] system, please disregard any oddities of phrase or misspellings. Medical Records Medical records reviewed: Yes I reviewed the patient's medical records. HPI General Mode of arrival: ambulatory . Date/Time Provider Initiated Documentation: 01/24/22 15:00 . Limitations to Documentation: no limitations . Information obtained by: patient, RN/MD (Dr. Aguero), RN notes reviewed and old records reviewed . HPI Narrative: 61-year-old female presents to the ER with chief complaint of right hand swelling status post elbow surgery on Tuesday. Patient had a open reduction of a elbow olecranon fracture with a screw placed. She reports that she has had increased pain with elevating her arm. She has not remove the bandage that was placed. Related Data Home Medications Medication Instructions Recorded Confirmed acetaminophen 500 mg tablet 500 mg PO Q6H PRN pain #60 tabs 01/22/22 hydrocodone 5 mg-acetaminophen 325 1 tab PO Q6H PRN severe pain #6 01/22/22 mg tablet tabs ibuprofen 600 mg tablet 600 mg PO TID PRN pain #60 tabs 01/22/22 Previous Rx's Medication Instructions Recorded acetaminophen 500 mg tablet 500 mg PO Q6H PRN pain #60 tabs 01/22/22 hydrocodone 5 mg-acetaminophen 325 1 tab PO Q6H PRN severe pain #6 01/22/22 mg tablet tabs ibuprofen 600 mg tablet 600 mg PO TID PRN pain #60 tabs 01/22/22 Allergies Allergy/AdvReac Type Severity Reaction Status Date / Time No Known Allergies Allergy Verified 01/22/22 06:37 General Stated Complaint: Orthopedic CARMELO: 3 Review of Systems Musculoskeletal Musculoskeletal: Reports as per HPI (Cool swollen right hand), Reports arthralgias, Reports joint swelling (Right hand) and Denies numbness Neurologic Neurologic: Denies numbness PFSH All Active Problems (Updated 01/24/22 @ 15:54 by Regina Garvin NP) Localized swelling on hand (Acute) History of elbow surgery (Acute) Trigger thumb, right thumb (Acute 11/23/17) Trigger thumb, left thumb (Acute 01/11/18) Tendinitis of left rotator cuff (Acute) Displaced fracture of olecranon process of right ulna with intra-articular extension (Acute) Medical History Acute head injury Per patient mild headache from fall 01/19/22. Dermatomyositis Endometrial cancer Multiple sclerosis PER PATIENT SHE DOES NOT HAVE MS. Oculopharyngeal muscular dystrophy dysphagia, CAN NOT LAY FLAT ASPIRATION RISK. EFFECTS MUSCLES IN ESOPHAGUS. Oculopharyngeal muscular dystrophy Pre-diabetes Weakness Per patient she has weakness in her thighs. Surgical History Abdominal hysterectomy 11/17 Herniated Disc Repair L 5 & 6 2005 History of colonoscopy History of eye surgery Recent surgery for droopy eye lids, still has stitches per patient. Oophrectomy, Both for CA of the endometriosis 11/17 Family History Other Diabetes Social History Smoking/Tobacco Use Status: Former Tobacco Use Smoking risk assessment performed?: Yes Alcohol Intake: current Alcohol Intake frequency: other Drug use: Never Substance use type: does not use Do you feel safe at home: Yes Do you feel safe in your relationship?: Yes Exam Resp Effort & Inspection: normal respiratory effort, able to speak in complete sentences, no audible wheezes, no cough and not labored Cardio Rate: regular rate Rhythm: regular rhythm Heart Sounds: S1 normal and S2 normal Extrem Right upper extremity: hand Details: neuromotor exam abnormal (Mild decrease in flexion and utilization review specialist due to swelling, ), neurosensory exam normal and swelling Location: of the dorsal hand, of the thumb, of the 2nd digit, of the 3rd digit, of the 4th digit and of the 5th digit Course Vital Signs Vital signs: Vital Signs Temperature 36.9 C 01/24/22 15:06 Pulse 75 01/24/22 15:06 Respiratory Rate 18 01/24/22 15:06 Blood Pressure 115/64 01/24/22 15:06 Pulse Oximetry 97 01/24/22 15:06 Temperature 36.9 C 01/24/22 15:06 Temperature Source Temporal Artery Scan 01/24/22 15:06 Pulse 75 01/24/22 15:06 Respiratory Rate 18 01/24/22 15:06 Respiratory Effort Non-Labored 01/24/22 15:10 Blood Pressure 115/64 01/24/22 15:06 Blood Pressure Position Supine 01/24/22 15:06 Pulse Oximetry 97 01/24/22 15:06 Oxygen Delivery Method Room Air 01/24/22 15:06 Oxygen Flow Rate 0 01/24/22 15:06 Pain Level 2 01/24/22 15:06
== END 2022-01-24 16:11 | disposition home or self-care (01) ==
PROVIDERS: Emergency Provider Registered Nurse Emergency; PCP Family Medicine
DX: R22.31 Localized swelling, mass and lump, right upper limb (principal)
CPT/HCPCS: 99282

== ENCOUNTER 2022-02-04 11:11 | Outpatient (CLI) | payer BC, SELFPAY ==
--- NOTE | 2022-02-04 10:25 | DI.RAD_ITS ---
Exam(s) XR ELBOW RT COMPLETE EXAM: XR ELBOW RT COMPLETE CLINICAL HISTORY: 1ST POST OP ORIF R OLECRANON. TECHNIQUE: 2D digital imaging was performed of the left elbow. Five images were obtained. AP, late ral and oblique views were obtained. COMPARISON: XA XR ELBOW RT LIMITED from 01/22/2022 FINDINGS: BONES: There is again seen a screw transfixing the olecranon fracture. No change in alignment of the orthopedic hardware or fracture is seen. No new fracture is identified. No bony destructive lesion is seen. JOINTS: The elbow is normally aligned. No joint effusion is seen. SOFT TISSUE: Normal. IMPRESSION: Stable postsurgical changes in the proximal ulna. DATA REPOSITORY: RADIATION DOSE DELIVERED:
== END 2022-02-04 11:12 | disposition home or self-care (01) ==
LOC: DIORS 11:11
PROVIDERS: PCP Family Medicine; Referring Provider Family Medicine; Visit Provider Physician Assistant
DX: S52.031D Displaced fracture of olecranon process with intraarticular extension of right ulna, subsequent encounter for closed fracture with routine healing (principal); X58.XXXD Exposure to other specified factors, subsequent encounter
CPT/HCPCS: 73080

== ENCOUNTER 2022-03-01 13:24 | Outpatient (CLI) | payer BC, SELFPAY ==
--- NOTE | 2022-03-01 13:00 | DI.RAD_ITS ---
Exam(s) XR ELBOW RT LIMITED EXAM: XR ELBOW RT LIMITED CLINICAL HISTORY: f/u ORIF R Olecranon. TECHNIQUE: 2D digital imaging was performed. COMPARISON: CR XR ELBOW RT COMPLETE from 02/04/2022 FINDINGS: Two views Lung truly orientated nail again noted in the proximal ulna with healing of the olecranon fracture si te. Fracture line less visible. Fat pad not elevated. Bony excrescences at both epicondyles again noted and correlation any history of epicondylitis is recommended IMPRESSION: DATA REPOSITORY: RADIATION DOSE DELIVERED:
== END 2022-03-01 13:25 | disposition home or self-care (01) ==
LOC: DIORS 13:24
PROVIDERS: PCP Family Medicine; Referring Provider Family Medicine; Visit Provider Student in an Organized Health Care Education/Training Program
DX: S52.031D Displaced fracture of olecranon process with intraarticular extension of right ulna, subsequent encounter for closed fracture with routine healing (principal); X58.XXXD Exposure to other specified factors, subsequent encounter
CPT/HCPCS: 73070

== ENCOUNTER → 2022-03-17 21:43 | Outpatient (CLI) | payer BC, SELFPAY ==
--- NOTE | 2022-03-16 | DI.RAD_ITS ---
Exam(s) XR SHOULDER RT COMPLETE 2+V EXAM: XR SHOULDER RT COMPLETE 2+V CLINICAL HISTORY: RT SHOULDER PAIN, M25.511. TECHNIQUE: 2D digital imaging was performed. Five views. COMPARISON: No exams were available for comparison FINDINGS: BONES: No acute fracture is present. No bony destructive lesion is seen. JOINTS: No dislocation present. Mild spurring at AC joint and glenoid. Mild narrowing of the glenoh umeral joint space. Humeral head normally positioned. SOFT TISSUE: Visualized portions of right lung are clear. IMPRESSION: [id number] degenerative changes. DATA REPOSITORY: RADIATION DOSE DELIVERED:
== END ==
PROVIDERS: PCP Family Medicine; Visit Provider Family Medicine
DX: M19.011 Primary osteoarthritis, right shoulder (principal)
CPT/HCPCS: 73030

== ENCOUNTER 2022-03-22 14:24 | Outpatient (CLI) | payer BC, SELFPAY ==
--- NOTE | 2022-03-22 14:00 | DI.RAD_ITS ---
Exam(s) XR ELBOW RT LIMITED EXAM: XR ELBOW RT LIMITED CLINICAL HISTORY: f/u ORIF R olecranon. TECHNIQUE: 2D digital imaging was performed. COMPARISON: CR XR ELBOW RT LIMITED from 03/01/2022 FINDINGS: Two views-AP and lateral Again noted is a long screw across healing fracture site in the olecranon. Fracture line presently n ot visible. Fat pad not elevated. No screw loosening. No radiographic evidence of osteomyelitis. Radial head and neck appear unremarkable. Findings at both epicondyles noted consistent with probabl e bilateral epicondylitis. IMPRESSION: DATA REPOSITORY: RADIATION DOSE DELIVERED:
--- NOTE | 2022-03-22 14:15 | DI.RAD_ITS ---
Exam(s) XR WRIST RT COMPL NAVICULAR EXAM: XR WRIST RT COMPL NAVICULAR CLINICAL HISTORY: eval R wrist pain and stiffnes. TECHNIQUE: 2D digital imaging was performed. COMPARISON: No exams were available for comparison FINDINGS: 3 views No evidence of fracture or dislocation nor significant ulnar variance. Scaphoid and scapholunate dis tance appear normal. Moderate degenerative changes in 1st carpometacarpal joint. Bone density is ag e-appropriate. IMPRESSION: No fractures evident. DATA REPOSITORY: RADIATION DOSE DELIVERED:
== END 2022-03-22 14:25 | disposition home or self-care (01) ==
LOC: DIORS 14:24
PROVIDERS: PCP Family Medicine; Referring Provider Family Medicine; Visit Provider Student in an Organized Health Care Education/Training Program
DX: M18.11 Unilateral primary osteoarthritis of first carpometacarpal joint, right hand
CPT/HCPCS: 73070; 73110

== ENCOUNTER 2022-08-04 19:13 | Outpatient (REF) | payer BC, SELFPAY ==
[2022-08-04 19:26] LABS: Anion Gap 4.2 mmol/L (3-11); BUN 16 mg/dL (7-18); CO2 31.8 mmol/L (21.0-32.0); CREATININE 0.6 mg/dL (0.55-1.02); Calcium 9.2 mg/dL (8.5-10.1); Chloride 102 mmol/L (98-107); Estimated GFR 100.17 (mL/min/1.73m2); Glucose 88 mg/dL (74-106); Potassium 4.5 mmol/L (3.5-5.1); Sodium 138 mmol/L (136-145)
== END 2022-08-04 19:14 | disposition home or self-care (01) ==
LOC: NCHCN 19:13
PROVIDERS: PCP Family Medicine; Visit Provider Family Medicine
DX: R00.2 Palpitations (principal); R73.03 Prediabetes
CPT/HCPCS: 80048; 83036

== ENCOUNTER 2022-08-27 11:05 | Outpatient (CLI) | payer BC, SELFPAY ==
[2022-08-27 16:17] LABS: ESR 8 mm/hr (0-30)
[2022-08-27 16:48] LABS: C-Reactive Protein 2.21 mg/dL (0.0-0.3)
[2022-08-27 16:59] LABS: D-Dimer 922 ng/mlFEU (<500)
== END 2022-08-27 11:06 | disposition home or self-care (01) ==
LOC: LBO 11:18
PROVIDERS: PCP Family Medicine; Visit Provider Family Medicine
DX: R07.89 Other chest pain (principal); R53.83 Other fatigue; R00.2 Palpitations
CPT/HCPCS: 36415; 85652; 85379; 86140

== ENCOUNTER 2022-08-27 20:05 | Emergency (ER) | payer BC, SELFPAY ==
[2022-08-27] VITALS (16 sets, daily range): BP systolic 120–139; BP diastolic 67–77; PULSE 65–78; RESP 14–35; TEMP 37.1; O2SAT 98–100
--- NOTE | 2022-08-27 20:00 | RT.EKG_ITS ---
APPROVED REPORT Exam: Resting ECG Reason for Exam: chest pain Patient Location: E HR:72 bpm ECG Measurements Heart Rate 72 AXIS MD 138 P 78 QRSd 81 QRS 90 QT 395 T 66 QTc 433 Conclusion Sinus rhythm...normal P axis, V-rate 60- 99 Normal [place] Some baseline artifact, no acute ST changes.
--- NOTE | 2022-08-27 20:15 | DI.CT_ITS ---
Exam(s) CT CHEST PE CTA EXAM: CT CHEST PE CTA CLINICAL HISTORY: CP, elevated dimer. TECHNIQUE: Imaging Protocol: CT angiography of the chest was performed using pulmonary embolus malcom col. Multi planar reconstructions were performed. CONTRAST MATERIAL: Intravenous: Omnipaque 350 Contrast volume: 100 cc COMPARISON: CT CT CHEST W from 07/03/2019 FINDINGS: CHEST: PULMONARY ARTERIES: There are no intraluminal filling defects to suggest acute pulmonary emboli. LUNGS: There are no infiltrates nor evidence of pulmonary infarction.. There are no pleural effusions . MEDIASTINUM: There is no hilar nor mediastinal adenopathy. Visualized thyroid unremarkable. CARDIAC: Heart size is upper normal. There is no pericardial effusion.Caliber of the thoracic aorta is within normal limits. No dissection. There is no significant shift of the interventricular septum . PARTIALLY VISUALIZED UPPERMOST ABDOMEN: No obvious findings OSSEOUS: No significant osseous lesions.. IMPRESSION: 1. No evidence of acute pulmonary emboli. No evidence of pulmonary infarction.No infiltrates nor ple ural effusions. No intrathoracic adenopathy evident. 2. No evidence of aortic dissection nor pericardial effusion RADIATION DOSE DELIVERED: 203.54mGy.cm Total DLP DATA REPOSITORY: All CT scans at this facility are submitted to the National Radiology Data Registry (NRDR) Dose Index Registry (DIR) with the [employer] (ACR). RADIATION OPTIMIZATION: All CT scans at this facility use at least one of these dose optimization te chniques: automated exposure control; mA and/or kV adjustment per patient size (includes targeted exa ms where dose is matched to clinical indication); or iterative reconstruction.
--- NOTE | 2022-08-27 20:18 | ED.GENADUL_ITS ---
Discharge Plan Disposition Patient Disposition: Home Condition: Stable Discharge Details Clinical Impression: Chest pain Primary Care Provider: Hien Montiel ED Provider: Tien Ortega Home Meds and New Rx's Prescriptions: Continued myriam seed oil-omega 3-6-9 1,000 mg (580 mg) capsule PO flaxseed Powder PO Discharge Instructions Instructions: Chest Pain (ED) Additional Instructions: Work-up in the ER does not reveal any signs of pulmonary embolism or other obvious emergent process. Please watch for new or worsening symptoms and return immediately to the ER. Otherwise please contact your care provider on Tuesday to discuss your ER visit, ongoing symptoms, and need for outpatient reevaluation. Medical Decision Making 62-year-old female presents with left-sided chest pain that began earlier this month after a viral syndrome. Reports that outpatient work-up to her PCP reveals elevated D-dimer and CRP, sent for a CTA of the chest to rule out PE. EKG unremarkable, not consistent with pericarditis. Clinically patient appears well, nontoxic. Will obtain routine screening laboratory values, single troponin, coags, and a CTA of the chest. Values are grossly unremarkable for any obvious emergent process. Awaiting CT. Patient remains hemodynamically stable. CTA of the chest reveals no evidence of pulmonary embolus, aneurysm, or dissection. Discussed with patient and family. They are relieved and comfortable discharge. Plan to follow-up with her PCP on Tuesday. Strict discharge and return precautions were provided. Patient understands, is agreeable to this plan, and has no additional questions or concerns upon discharge. This documentation was generated using [employer] dictation system, please disregard any oddities of phrase or misspellings. Medical Records Medical records reviewed: Yes I reviewed the patient's medical records. Imaging Data Radiologic Study: Attestation: I personally reviewed and interpreted this imaging study as follows: Imaging: CT Scan Radiologist's impression: PROCEDURE INFORMATION: Exam: CTA Chest With Contrast Exam date and time: 08/27/2022 8:36 PM Age: 62 years old Clinical indication: Pain; Other: Cp, elevated dimer TECHNIQUE: Imaging protocol: Computed tomographic angiography of the chest with contrast. 3D rendering (Not supervised by radiologist): MIP and/or 3D reconstructed images were created by the technologist. Radiation optimization: All CT scans at this facility use at least one of these dose optimization techniques: automated exposure control; mA and/or kV adjustment per patient size (includes targeted exams where dose is matched to clinical indication); or iterative reconstruction. Contrast material: OMNI 350; Contrast volume: 100 ml; Contrast route: INTRAVENOUS (IV); COMPARISON: CT CHEST W 07/03/2019 1:14 PM FINDINGS: Pulmonary arteries: No evidence of pulmonary embolus to the segmental level. Aorta: No aneurysm of the aorta. No dissection of the aorta. Lungs: Unremarkable. No consolidation. No masses. Pleural spaces: Unremarkable. No pneumothorax. No pleural effusion. Heart: Unremarkable. No cardiomegaly. No pericardial effusion. Lymph nodes: Unremarkable. No enlarged lymph nodes. Bones/joints: Unremarkable. No acute fracture. Soft tissues: Unremarkable. IMPRESSION: 1. No evidence of pulmonary embolus to the segmental level.2. No aneurysm of the aorta. 3. No dissection of the aorta Lab Data Lab results reviewed: Yes I reviewed the patient's lab results. Labs: Laboratory Tests Range/Units 08/27/22 08/27/22 08/27/22 20:20 20:20 20:20 WBC (4.4-10.8) 10^3/uL 7.95 RBC (3.93-5.22) 10^6/uL 4.20 Hgb (11.2-15.7) g/dL 12.5 Hct (36.0-46.0) % 38.3 MCV (80-95) fL 91 MCH (27.0-33.0) pg 29.8 MCHC (32.0-36.0) % 32.6 RDW (11.7-14.6) % 12.9 Plt Count (130-400) 10^3/uL 544 H MPV (8.0-11.0) fL 8.5 Immature Gran % 0.3 Neutrophils % 66.6 Lymphocytes % 19.9 Monocytes % 9.7 Eosinophils % 2.5 Basophils % 1.0 Nucleated RBC % (0.0-0.3) % 0.0 Absolute Neutrophils (1.2-6.7) 10^3/uL 5.30 Absolute Lymphocytes (1.2-3.4) 10^3/uL 1.58 Absolute Monocytes (0.1-0.8) 10^3/uL 0.77 Absolute Eosinophils (0.0-0.7) 10^3/uL 0.20 Absolute Basophils (0.0-0.2) 10^3/uL 0.08 PT (9.3-11.0) sec 9.9 INR (0.9-1.1) 1.0 APTT (21.0-27.5) sec 27.8 H Sodium (136-145) mmol/L 136 Potassium (3.5-5.1) mmol/L 3.9 Chloride (98-107) mmol/L 100 Carbon Dioxide (21.0-32.0) mmol/L 27.7 Anion Gap (3-11) mmol/L 8.3 BUN (7-18) mg/dL 21 H Creatinine (0.55-1.02) mg/dL 0.7 Est GFR (CKD-EPI 2020) (mL/min/1.73m2) 96.52 Glucose (74-106) mg/dL 102 Calcium (8.5-10.1) mg/dL 9.4 Magnesium (1.8-2.4) mg/dL 2.3 Total Bilirubin (0.2-1.0) mg/dL 0.3 AST (15-37) U/L 22 ALT (14-59) U/L 17 Alkaline Phosphatase (46-116) U/L 125 H Troponin I (<or=60) ng/L < 50 Total Protein (6.4-8.2) g/dL 8.1 Albumin (3.4-5.0) g/dL 3.6 ECG Data Attestation: I personally reviewed and interpreted this ECG (s) as follows: Interpretation: Sinus rhythm, ventricular of 72, no STEMI HPI General Mode of arrival: ambulatory . Date/Time Provider Initiated Documentation: 08/27/22 20:14 . Limitations to Documentation: no limitations . Information obtained by: patient and family . HPI Narrative: 62-year-old female, past medical history of MS, ocular pharyngeal muscular dystrophy, presents to the ER at the request of her PCP for evaluation of chest pain and elevated D-dimer, requesting CTA of the chest to rule out PE. Patient reports that she had a viral-like syndrome earlier in the month and since that time has had chest pain, primarily left-sided, worse with movement and taking a deep breath. Denies cardiac history. She states that she has fully recovered from her viral illness on 08-09-2022. Patient reports that her chest pain currently is a dull ache, 2 or 3 out of 10. Denies headache, shortness of breath, worse cough than baseline, abdominal pain, nausea, vomiting, change in bowel or bladder function, pain or swelling in her calves. ESR was unremarkabl e, CRP slightly elevated today. Related Data Home Medications Medication Instructions Recorded Confirmed myriam seed oil-omega 3-6-9 1,000 mg cap PO 06/29/22 (580 mg) capsule flaxseed pwd PO 06/29/22 Allergies Allergy/AdvReac Type Severity Reaction Status Date / Time No Known Allergies Allergy Verified 08/27/22 20:14 General Stated Complaint: Chest Pain CARMELO: 2 Review of Systems Constitutional Constitutional: Denies fatigue, Denies fever(s) and Reports weakness (Generalized) Eyes Eyes: Denies change in vision ENT Ears, Nose, Mouth, and Throat: Denies neck pain Cardiovascular Cardiovascular: Reports chest pain and Denies dyspnea Respiratory Respiratory: Reports cough and Denies dyspnea Gastrointestinal Gastrointestinal: Denies abdominal pain, Denies nausea and Denies vomiting Musculoskeletal Musculoskeletal: Denies neck pain, Denies numbness and Denies tingling Integumentary/Breasts Skin/Breast: Denies rash Neurologic Neurologic: Denies numbness, Denies tingling and Reports weakness (Generalized) Endocrine Endocrine: Denies fatigue Hematologic/Lymphatic Hematologic/Lymphatic: Denies easy bleeding and Denies easy bruising PFSH All Active Problems (Updated 08/27/22 @ 21:20 by SHIRLENE Gordon) Chest pain (Acute) Dysfunction of right rotator cuff (Acute) Contracture, right elbow (Acute) Right wrist pain (Acute) Trigger thumb, right thumb (Acute 11/23/17) Trigger thumb, left thumb (Acute 01/11/18) Tendinitis of left rotator cuff (Acute) Displaced fracture of olecranon process of right ulna with intra-articular extension (Acute) s/p ORIF--DOS 01/22/22 Medical History Acute head injury Per patient mild headache from fall 01/19/22. Dermatomyositis Endometrial cancer Multiple sclerosis PER PATIENT SHE DOES NOT HAVE MS. Oculopharyngeal muscular dystrophy dysphagia, CAN NOT LAY FLAT ASPIRATION RISK. EFFECTS MUSCLES IN ESOPHAGUS. Oculopharyngeal muscular dystrophy Pre-diabetes Weakness Per patient she has weakness in her thighs. Surgical History Abdominal hysterectomy 11/17 Herniated Disc Repair L 5 & 6 2005 History of colonoscopy History of eye surgery Recent surgery for droopy eye lids, still has stitches per patient. Oophrectomy, Both for CA of the endometriosis 11/17 Family History Other Diabetes Social History Smoking/Tobacco Use Status: Former Tobacco Use Smoking risk assessment performed?: Yes Alcohol Intake: current Alcohol Intake frequency: other Drug use: Never Substance use type: does not use Do you feel safe at home: Yes Do you feel safe in your relationship?: Yes Exam Const General: cooperative, healthy appearing, comfortable and no acute distress Orientation: alert and awake [facility] Head: normal to inspection, normocephalic and atraumatic Face and sinus: normal facial exam Mouth: moist mucous membranes Eyes Conjunctivae: conjunctivae normal Neck Neck: normal visual inspection, full ROM, no meningeal signs, trachea midline and supple Chest Chest: normal inspection of the chest and normal palpation of entire chest wall Resp Effort & Inspection: normal respiratory effort and able to speak in complete sentences Auscultation: clear to auscultation bilaterally Cardio Rate: regular rate Rhythm: regular rhythm GI Palpation: soft, not firm, no guarding, no pulsatile masses and nontender Back/Spine/Pelvis Back: No back tenderness Skin General skin exam: no rashes or lesions noted Neuro General: patient alert, patient awake, moves all extremities and no focal motor deficits Cognition: normal cognition Speech: speech normal Gait: normal gait Sensory Exam: no sensory deficits noted Extrem General: normal to inspection, full ROM, capillary refill normal, no pedal edema and no calf tenderness Psych Appearance: grossly normal Mental Status: mental status grossly normal Course Vital Signs Vital signs: Vital Signs Temperature 37.1 C 08/27/22 20:11 Pulse 72 08/27/22 20:11 Respiratory Rate 17 08/27/22 20:11 Blood Pressure 139/77 08/27/22 20:11 Pulse Oximetry 100 08/27/22 20:11 Temperature 37.1 C 08/27/22 20:11 Temperature Source Temporal Artery Scan 08/27/22 20:11 Pulse 72 01/20/23 20:11 Respiratory Rate 17 08/27/22 20:11 Respiratory Effort 08/27/22 20:11 Blood Pressure 139/77 08/27/22 20:11 Blood Pressure Position Supine 08/27/22 20:11 Pulse Oximetry 100 08/27/22 20:11 Oxygen Delivery Method Room Air 08/27/22 20:11 Oxygen Flow Rate 0 08/27/22 20:11 Pain Level 3 08/27/22 20:11
[2022-08-27 20:35] LABS: Abs Immature Grans 0.02 10^3/uL (0.0-0.06); Absolute Basophil Count 0.08 10^3/uL (0.0-0.2); Absolute Lymphocyte Count 1.58 10^3/uL (1.2-3.4); Absolute Monocyte Count 0.77 10^3/uL (0.1-0.8); Eosinophils % 2.5; HCT 38.3 % (36.0-46.0); HGB 12.5 g/dL (11.2-15.7); Immature Grans % 0.3; Lymphocytes % 19.9; MCH 29.8 pg (27.0-33.0); MCHC 32.6 % (32.0-36.0); MCV 91 fL (80-95); MPV 8.5 fL (8.0-11.0); Monocytes % 9.7; Neutrophils % 66.6; Platelet Count 544 10^3/uL (130-400); RDW 12.9 % (11.7-14.6); RDW-SD 42.6 fL; WBC 7.95 10^3/uL (4.4-10.8)
[2022-08-27] MEDS: Omnipaque 350 MG/ML 100 ML BTL IJ (20:39)
[2022-08-27] MEDS: Normal Saline - Diluent 50 ML VIAL IJ (20:42)
[2022-08-27 20:54] LABS: PTT Activated 27.8 sec (21.0-27.5); Prothrombin Time 9.9 sec (9.3-11.0)
[2022-08-27 21:08] LABS: ALT 17 U/L (14-59); AST 22 U/L (15-37); Albumin 3.6 g/dL (3.4-5.0); Alkaline Phosphatase 125 U/L (46-116); Anion Gap 8.3 mmol/L (3-11); BUN 21 mg/dL (7-18); Bilirubin, Total 0.3 mg/dL (0.2-1.0); CO2 27.7 mmol/L (21.0-32.0); CREATININE 0.7 mg/dL (0.55-1.02); Calcium 9.4 mg/dL (8.5-10.1); Chloride 100 mmol/L (98-107); Estimated GFR 96.52 (mL/min/1.73m2); Glucose 102 mg/dL (74-106); Magnesium 2.3 mg/dL (1.8-2.4); Potassium 3.9 mmol/L (3.5-5.1); Sodium 136 mmol/L (136-145); Total Protein 8.1 g/dL (6.4-8.2); Troponin I < 50 ng/L (<or=60)
--- NOTE | 2022-08-27 21:14 | DI.VRAD_ITS ---
PROCEDURE INFORMATION: Exam: CTA Chest With Contrast Exam date and time: 08/27/2022 8:36 PM Age: 62 years old Clinical indication: Pain; Other: Cp, elevated dimer TECHNIQUE: Imaging protocol: Computed tomographic angiography of the chest with contrast. 3D rendering (Not supervised by radiologist): MIP and/or 3D reconstructed images were created by the technologist. Radiation optimization: All CT scans at this facility use at least one of these dose optimization techniques: automated exposure control; mA and/or kV adjustment per patient size (includes targeted exams where dose is matched to clinical indication); or iterative reconstruction. Contrast material: OMNI 350; Contrast volume: 100 ml; Contrast route: INTRAVENOUS (IV); COMPARISON: CT CHEST W 07/03/2019 1:14 PM FINDINGS: Pulmonary arteries: No evidence of pulmonary embolus to the segmental level. Aorta: No aneurysm of the aorta. No dissection of the aorta. Lungs: Unremarkable. No consolidation. No masses. Pleural spaces: Unremarkable. No pneumothorax. No pleural effusion. Heart: Unremarkable. No cardiomegaly. No pericardial effusion. Lymph nodes: Unremarkable. No enlarged lymph nodes. Bones/joints: Unremarkable. No acute fracture. Soft tissues: Unremarkable. IMPRESSION: 1. No evidence of pulmonary embolus to the segmental level. 2. No aneurysm of the aorta. 3. No dissection of the aorta. Dictated and Authenticated by: Ata Lombardo MD. Ordering:MALINDA Chauhan MD
== END 2022-08-27 21:38 | disposition home or self-care (01) ==
PROVIDERS: Emergency Provider Physician Assistant; PCP Family Medicine
DX: R07.9 Chest pain, unspecified (principal); R79.1 Abnormal coagulation profile
CPT/HCPCS: 36415; 71275; 80053; 93005; 99285; 83735; 84484; 85025; 85610; 85730; 93010; J3490

== ENCOUNTER 2022-09-02 09:11 | Outpatient (CLI) | payer BC, SELFPAY ==
--- NOTE | 2022-09-02 | DI.US_ITS ---
APPROVED REPORT EXAM: Comprehensive 2D, Doppler, and color-flow Echocardiogram Patient Location: Out-Patient Radio Antenna Installer: Amanda Ruiz RDCS (AE) Indications: Pleuritic chest pain, Positional left sided chest pain, h/o dermatomyocitis Other Information Study Quality: Fair. Technically limited study due to body habitus. Conclusion Normal left ventricular wall thickness and chamber size. Estimated ejection fraction is 55 to 60%. Wall motion is normal Normal right ventricular size and systolic function Both atria are normal in size There is no structural or hemodynamically significant valvular disease Small pericardial effusion Wall motion Left Ventricle The left ventricle is normal size. The left ventricular systolic function is normal. The left ventric ular ejection fraction is within the normal range. There is normal left ventricular wall thickness. T here is normal LV segmental wall motion. There is no ventricular septal defect visualized. LVEF is 56 %. Right Ventricle Right ventricle is grossly normal in size. Right ventricular systolic function is grossly normal. The RVSP is 26.2_ mmHg. Atria The left atrium size is normal. Right atrium size is normal. Prominent Eustachian valve is noted in the right atrium. The interatrial septum is intact with no evidence for an atrial septal defect. Aortic Valve The aortic valve is normal in structure. Aortic valve is trileaflet. There is no aortic valvular sten osis. No aortic regurgitation is present. Mitral Valve The mitral valve is normal in structure. No evidence of mitral valve stenosis. Trace mitral regurgita tion. Tricuspid Valve The tricuspid valve is normal in structure. There is no tricuspid valve stenosis. Trace tricuspid reg urgitation. Pulmonic Valve The pulmonary valve is normal in structure. There is no pulmonic valvular stenosis. Trace pulmonic re gurgitation. Great Vessels The aortic root is normal in size. The ascending aorta is normal in size. Aortic arch is normal in ca liber. The IVC collapses <50% with inspiration. Pericardium Mild circumferential pericardial effusion. 2D Dimensions IVSD d PLAX 0.69 cm F: 0.6-1.0 LV Vol A2C d MOD 62.5 mL LVPW d PLAX 0.79 cm F: 0.6 - 1.0 LV Vol A4C d MOD 60.5 mL LVID d PLAX 4.01 cm F: 3.8 - 5.2 LV EF A4C MOD 55.5 % LVDs 2.80 cm F: 2.2 - 3.5 LV EF A2C MOD 57.7 % Ao Root d 2.63 cm F: 2.7 - 3.3 LV EF Biplane MOD 58.0 % Ao Asc Diam d 2.83 cm F: 2.3 - 3.1 SV 36.76 mL LV EF Teichholz 57.9 % SV Index 25.23 mL/m2 LVEF (Savage's) 57.96 % F: 54 - 74 LV Volume 53.47 mL F: 46 - 106 LV Volume Index 36.62 mL/m2 F: 29 - 61 LV Vol Biplane MOD 63.4 mL FS 30.05 % M-Mode TAPSE 2.34 cm (M/F) >1.7 LV Diastology MV E' medial 0.096 (>0.07 m/s) E/A Ratio 0.9 LV E/e MED 6.70 (<14) MV E Vmax 0.65 (0.4-1.3 m/s) MV E' lateral 0.059 (>0.1 m/s) MV A Vmax 0.70 (0.4-1.3 m/s) LV E/e LAT 11.00 (<14) MV E/A Ratio 0.90 MV E/E' medial 6.73 MV E/E' lateral 11.03 Aortic Valve LVOT Area 2.70 cm2 AoV Area Vmax 2.45 cm2 LVOT Vmax 0.88 m/s AoV Area/ BSA (Vmax) 1.68 cm2/m2 LVOT Mean Kaushal. 0.63 m/s CINTHYA Mean Kaushal. 2.10 cm2 LVOT Peak Grad 3.1 mmHg CINTHYA Mean Kaushal. Index 1.44 cm2/m2 LVOT Mean Grad 1.8 mmHg LVOT VTI 0.203 m LVOT Diam s 1.85 cm AoV Vmax 0.97 m/s Velocity Ratio 0.91 AoV Mean Kaushal. 0.81 m/s AoV Peak Grad 3.8 mmHg LVOT SV 54.98 mL AoV Mean Grad 2.7 mmHg AoV VTI 0.242 m AoV Area VTI 2.27 cm2 AoV Area/ BSA (VTI) 1.56 cm/m2 Mitral Valve MV DT 231 (160-240 msec) MV PHT 67 msec MV Area PHT 3.29 cm2 MV VTI 0.288 m MV Area VTI 1.91 (4.0-6.0 cm2) Pulmonary Valve PV Vmax 0.74 (0.5-1.5 m/s) RVOT Peak Gr. 1.62 mmHg PV Peak Grad 2.2 mmHg RVOT Mean Gr. 0.90 mmHg PV Mean Grad 1.4 mmHg RVOT VTI 0.134 m PV VTI 0.175 m RVOT Vmax 0.64 m/s Tricuspid Valve TR Peak Grad 18.2 mmHg TR Vmax 2.13 m/s RA Pressure 8.00 mmHg RVSP (TR) 26.2 mmHg
== END 2022-09-02 09:31 ==
LOC: DI 09:11
PROVIDERS: PCP Family Medicine; Visit Provider Family Medicine
DX: R07.9 Chest pain, unspecified (principal)
CPT/HCPCS: 93306

== ENCOUNTER 2022-09-07 12:27 | Emergency (ER) | payer BC, SELFPAY ==
[2022-09-07] VITALS (135 sets, daily range): BP systolic 105–116; BP diastolic 63–77; PULSE 98–110; RESP 11–33; TEMP 36.7–38.1; O2SAT 95–100
--- NOTE | 2022-09-07 12:15 | RT.EKG_ITS ---
APPROVED REPORT Exam: Resting ECG Reason for Exam: sob Patient Location: E HR:95 bpm ECG Measurements Heart Rate 95 AXIS NH 134 P 77 QRSd 74 QRS 83 QT 332 T 58 QTc 418 Conclusion Sinus rhythm...normal P axis, V-rate 60- 99 Right atrial enlargement...P>0.25mV 2 lds or<-0.24mV aVR/aVL
--- NOTE | 2022-09-07 12:45 | DI.RAD_ITS ---
Exam(s) XR CHEST 2V PA LATERAL EXAM: XR CHEST 2V PA LATERAL CLINICAL HISTORY: Chest pain TECHNIQUE: 2D digital imaging was performed of the chest. Two images were obtained. PA and lateral views were obtained. COMPARISON: CR,RF BARIUM SWALLOW W PA LAT CXR from 08/06/2008 CR XR shoulder LT complete 2+V from 06/27/2018 FINDINGS: MEDIASTINUM: Normal. HEART: Normal. PULMONARY VASCULATURE: Normal. LUNGS: Clear. PLEURAL SPACE: There is a small left pleural effusion. BONE:Within normal limits for the patient's age. OTHER FINDINGS:Normal. IMPRESSION: No acute pulmonary findings. DATA REPOSITORY: RADIATION DOSE DELIVERED:
--- NOTE | 2022-09-07 12:49 | W.ED.GENAD ---
Discharge Plan Disposition Patient Disposition: Home Condition: Stable Discharge Details Clinical Impression: Chest pain Primary Care Provider: Hien Montiel ED Provider: Tien Ortega Home Meds and New Rx's Prescriptions: Continued myriam seed oil-omega 3-6-9 1,000 mg (580 mg) capsule 1 cap PO DAILY flaxseed Powder 1 pwd PO DAILY ibuprofen 300 mg Tablet 300 mg PO TID colchicine 0.6 mg tablet 1 tab PO BID Label Comments: Take 1 tablet by mouth twice a day for 4 weeks Discharge Instructions Instructions: Chest Pain (ED) Additional Instructions: At this time your work-up reveals elevated inflammatory markers, your heart rate is elevated, and you now have a fever. We discussed admission but at this time you have declined. Increase your cyza-ohf-csqhtiy ibuprofen to 800 mg every 8 hours as well as begin taking Tylenol 1 g every 6 hours. Plenty of fluids to avoid dehydration. Please watch for new or worsening symptoms and return immediately to the ER. Otherwise please reach out to both your primary care provider and your cardiology team tomorrow to discuss your ongoing symptoms and need for outpatient reevaluation and further work-up of your ongoing symptoms. Discharge Data Discharge Date/Time-TO BE ENTERED AT DEPARTURE: 09/07/22 17:48 Medical Decision Making <Regina Garvin NP - Last Filed: 09/07/22 16:28> 62-year-old female presents to the ER with a chief complaint of increasing shortness of breath with exertion and worsening chest pain which radiates to her left shoulder since being seen approximately 10 days ago and dx with mild pericarditis. Patient had an echocardiogram 5 days ago which showed mild pericardial effusion and some tricuspid regurgitation. Patient reports that last night the shortness of breath and chest pain worsened. Worsening shortness of breath with walking to the bathroom. Work-up ordered including serial troponins, EKG chest x-ray and repeat limited echocardiogram to rule out worsening pericardial effusion. We will consult with cardiology Dr. White regarding ultrasound. 1342: Dr. White paged for consult. Troponin is pending at this time CBC shows no leukocytosis, ESR is 57 which is up from 8 on the . 1410: Spoke with Dr. White regarding patient case and details at this time of consultation labs are still pending. She does not recommend a repeat ultrasound at this time. Findings are consistent with continued pericarditis she reports that it may take weeks for the patient's symptoms to resolve echo canceled. CMP shows glucose 123 initial troponin less than 50 CRP is 14.49 which is up from 2 approximately 10 days ago. Tick and Lyme titer added onto labs. 1545: Patient reevaluation she reports 2 episodes of chest pain while being here that sharp and stabbing radiates into her left shoulder, she also reports feeling hot she does have a slight temp of 100.5 pulse is 102. 1614: Spoke with Dr. Gallagher who recommends Toradol IV and reevaluation and having patient take stronger ibuprofen 3 times daily. Care is to be handed off to oncoming provider Tien Ortega pending reevaluation after medications, COVID swab and disposition. This text was generated using [employer] system, please disregard any oddities of phrase or misspellings. Medical Records Medical records reviewed: Yes I reviewed the patient's medical records. Lab Data Lab results reviewed: Yes I reviewed the patient's lab results. Labs: Laboratory Tests Range/Units 09/07/22 09/07/22 09/07/22 13:10 13:10 13:10 WBC (4.4-10.8) 10^3/uL 8.46 RBC (3.93-5.22) 10^6/uL 3.92 L Hgb (11.2-15.7) g/dL 11.4 Hct (36.0-46.0) % 36.2 MCV (80-95) fL 92 MCH (27.0-33.0) pg 29.1 MCHC (32.0-36.0) % 31.5 L RDW (11.7-14.6) % 12.9 Plt Count (130-400) 10^3/uL 379 MPV (8.0-11.0) fL 9.3 Immature Gran % 0.2 Neutrophils % 75.6 Lymphocytes % 10.4 Monocytes % 12.3 Eosinophils % 1.1 Basophils % 0.4 Nucleated RBC % (0.0-0.3) % 0.0 Absolute Neutrophils (1.2-6.7) 10^3/uL 6.40 Absolute Lymphocytes (1.2-3.4) 10^3/uL 0.88 L Absolute Monocytes (0.1-0.8) 10^3/uL 1.04 H Absolute Eosinophils (0.0-0.7) 10^3/uL 0.09 Absolute Basophils (0.0-0.2) 10^3/uL 0.03 ESR (0-30) mm/hr Sodium (136-145) mmol/L 136 Potassium (3.5-5.1) mmol/L 4.2 Chloride (98-107) mmol/L 100 Carbon Dioxide (21.0-32.0) mmol/L 29.5 Anion Gap (3-11) mmol/L 6.5 BUN (7-18) mg/dL 15 Creatinine (0.55-1.02) mg/dL 0.6 Est GFR (CKD-EPI 2020) (mL/min/1.73m2) 100.17 Glucose (74-106) mg/dL 123 H Calcium (8.5-10.1) mg/dL 9.2 Magnesium (1.8-2.4) mg/dL 2.1 Total Bilirubin (0.2-1.0) mg/dL 0.6 AST (15-37) U/L 24 ALT (14-59) U/L 15 Alkaline Phosphatase (46-116) U/L 103 Troponin I (<or=60) ng/L < 50 C-Reactive Protein (0.0-0.3) mg/dL NT-Pro-B Natriuret Pep (<300) pg/mL 784 H Total Protein (6.4-8.2) g/dL 7.5 Albumin (3.4-5.0) g/dL 3.1 L Range/Units 09/07/22 09/07/22 09/07/22 13:10 13:10 15:34 WBC (4.4-10.8) 10^3/uL RBC (3.93-5.22) 10^6/uL Hgb (11.2-15.7) g/dL Hct (36.0-46.0) % MCV (80-95) fL MCH (27.0-33.0) pg MCHC (32.0-36.0) % RDW (11.7-14.6) % Plt Count (130-400) 10^3/uL MPV (8.0-11.0) fL Immature Gran % Neutrophils % Lymphocytes % Monocytes % Eosinophils % Basophils % Nucleated RBC % (0.0-0.3) % Absolute Neutrophils (1.2-6.7) 10^3/uL Absolute Lymphocytes (1.2-3.4) 10^3/uL Absolute Monocytes (0.1-0.8) 10^3/uL Absolute Eosinophils (0.0-0.7) 10^3/uL Absolute Basophils (0.0-0.2) 10^3/uL ESR (0-30) mm/hr 57 H Sodium (136-145) mmol/L Potassium (3.5-5.1) mmol/L Chloride (98-107) mmol/L Carbon Dioxide (21.0-32.0) mmol/L Anion Gap (3-11) mmol/L BUN (7-18) mg/dL Creatinine (0.55-1.02) mg/dL Est GFR (CKD-EPI 2020) (mL/min/1.73m2) Glucose (74-106) mg/dL Calcium (8.5-10.1) mg/dL Magnesium (1.8-2.4) mg/dL Total Bilirubin (0.2-1.0) mg/dL AST (15-37) U/L ALT (14-59) U/L Alkaline Phosphatase (46-116) U/L Troponin I (<or=60) ng/L < 50 C-Reactive Protein (0.0-0.3) mg/dL 14.49 H NT-Pro-B Natriuret Pep (<300) pg/mL Total Protein (6.4-8.2) g/dL Albumin (3.4-5.0) g/dL <SHIRLENE Gordon - Last Filed: 09/07/22 18:43> 62-year-old female presents to the ER with a chief complaint of increasing shortness of breath with exertion and worsening chest pain which radiates to her left shoulder since being seen approximately 10 days ago and dx with mild pericarditis. Patient had an echocardiogram 5 days ago which showed mild pericardial effusion and some tricuspid regurgitation. Patient reports that last night the shortness of breath and chest pain worsened. Worsening shortness of breath with walking to the bathroom. Work-up ordered including serial troponins, EKG chest x-ray and repeat limited echocardiogram to rule out worsening pericardial effusion. We will consult with cardiology Dr. White regarding ultrasound. 1342: Dr. White paged for consult. Troponin is pending at this time CBC shows no leukocytosis, ESR is 57 which is up from 8 on the . 1410: Spoke with Dr. White regarding patient case and details at this time of consultation labs are still pending. She does not recommend a repeat ultrasound at this time. Findings are consistent with continued pericarditis she reports that it may take weeks for the patient's symptoms to resolve echo canceled. CMP shows glucose 123 initial troponin less than 50 CRP is 14.49 which is up from 2 approximately 10 days ago. Tick and Lyme titer added onto labs. 1545: Patient reevaluation she reports 2 episodes of chest pain while being here that sharp and stabbing radiates into her left shoulder, she also reports feeling hot she does have a slight temp of 100.5 pulse is 102. 1614: Spoke with Dr. Gallagher who recommends Toradol IV and reevaluation and having patient take stronger ibuprofen 3 times daily. Care is to be handed off to oncoming provider Tien Ortega pending reevaluation after medications, COVID swab and disposition. This text was generated using [employer] dictation system, please disregard any oddities of phrase or misspellings. 1530: Tien Ortega PA-C I assumed care of this 62-year-old female from my colleague TITI Garvin, please see her initial HPI and examination. At time of signout awaiting Fluvid swab, reevaluation after IV Toradol, and reassessment. Patient did have evaluation in the ER on 08-27-2022, negative CTA at that time for concern of potential PE. Subsequent follow-up with cardiology, diagnosed with pericarditis. Flu, RSV, COVID all negative. Lyme pending Upon evaluation patient with a heart rate of 104. Repeat temperature reveals 100.2. Patient reports no significant improvement of the IV Toradol. She continues to report chest pain as well as tachycardia, dyspnea with exertion. Patient able to speak in full sentences. No respiratory distress. Discussed providing additional medication but patient declines, reports that she does not want to mask her symptoms. We discussed her overall evaluation and disposition. Discussed the previous consultation that TITI Garvin had with Dr. White cardiology and Dr. Gallagher, hospitalist. At this time, given her persistent symptoms, elevated inflammatory markers, temperature of 100.2, mild tachycardia, I have recommended admission but at this time patient declines. Patient states that she can increase her anti-inflammatory dose at home and does not need to be hospitalized for this. She was concerned about her low-grade fever, we discussed adding on Tylenol as well. Evaluation not consistent with tamponade. Strict discharge and return precautions were provided. Patient understands, is agreeable to this plan, and has no additional questions or concerns upon discharge. This documentation was generated using [employer] system, please disregard any oddities of phrase or misspellings. Medical Records Medical records reviewed: Yes I reviewed the patient's medical records. HPI <Regina Garvin NP - Last Filed: 09/07/22 16:28> General Mode of arrival: ambulatory. Date/Time Provider Initiated Documentation: 09/07/22 12:34. Limitations to Documentation: no limitations. Information obtained by: patient, RN notes reviewed and old records reviewed. HPI Narrative: 62-year-old female presents to the ER with a chief complaint of increasing shortness of breath with exertion and worsening chest pain which radiates to her left shoulder since being seen approximately 10 days ago and dx with mild pericarditis. Patient had an echocardiogram 5 days ago which showed mild pericardial effusion and some tricuspid regurgitation. Patient reports that last night the shortness of breath and chest pain worsened. Worsening shortness of breath with walking to the bathroom. Does report a mild URI prior to onset of symptoms approximately 2 weeks ago. She has been taking ibuprofen and colchicine as directed which has helped little to none. She has not taken any aspirin. Past medical history includes multiple sclerosis,endometrial cancer, dermatomyositis Related Data Home Medications Medication Instructions Recorded Confirmed myriam seed oil-omega 3-6-9 1,000 mg 1 cap PO DAILY 06/29/22 09/07/22 (580 mg) capsule flaxseed 1 pwd PO DAILY 06/29/22 09/07/22 colchicine 0.6 mg tablet 1 tab PO BID 09/07/22 09/07/22 ibuprofen 300 mg tablet 300 mg PO TID 09/07/22 09/07/22 Allergies Allergy/AdvReac Type Severity Reaction Status Date / Time No Known Allergies Allergy Verified 08/27/22 20:14 General Stated Complaint: Chest Pain CARMELO: 3 Review of Systems <Regina Garvin NP - Last Filed: 09/07/22 16:28> All systems reviewed & are unremarkable except as noted in HPI and below Cardiovascular Cardiovascular: Reports chest pain, Reports rapid heart rate, Reports palpitations, Reports dyspnea and Reports dyspnea on exertion Respiratory Respiratory: Reports dyspnea and Reports dyspnea on exertion Endocrine Endocrine: Reports palpitations PFSH <Regina Garvin NP - Last Filed: 09/07/22 16:28> All Active Problems (Updated 09/07/22 @ 17:37 by SHIRLENE Gordon) Chest pain (Acute) Chest pain (Acute) Dysfunction of right rotator cuff (Acute) Contracture, right elbow (Acute) Right wrist pain (Acute) Trigger thumb, right thumb (Acute 11/23/17) Trigger thumb, left thumb (Acute 01/11/18) Tendinitis of left rotator cuff (Acute) Displaced fracture of olecranon process of right ulna with intra-articular extension (Acute) s/p ORIF--DOS 01/22/22 Medical History Acute head injury Per patient mild headache from fall 01/19/22. Dermatomyositis Endometrial cancer Multiple sclerosis PER PATIENT SHE DOES NOT HAVE MS. Oculopharyngeal muscular dystrophy dysphagia, CAN NOT LAY FLAT ASPIRATION RISK. EFFECTS MUSCLES IN ESOPHAGUS. Oculopharyngeal muscular dystrophy Pre-diabetes Weakness Per patient she has weakness in her thighs. Surgical History Abdominal hysterectomy 11/17 Herniated Disc Repair L 5 & 6 2005 History of colonoscopy History of eye surgery Recent surgery for droopy eye lids, still has stitches per patient. Oophrectomy, Both for CA of the endometriosis 11/17 Family History Other Diabetes Social History Smoking/Tobacco Use Status: Former Tobacco Use Smoking risk assessment performed?: Yes Alcohol Intake: current Alcohol Intake frequency: other Drug use: Never Substance use type: does not use Do you feel safe at home: Yes Do you feel safe in your relationship?: Yes Exam <Regina Garvin NP - Last Filed: 09/07/22 16:28> Narrative Exam Narrative: Constitutional: Alert and oriented x3. Appears stated age. Normal body habitus. Head: Normocephalic, no trauma. Eyes: Pupils PERRL, Red reflex noted, EOM's intact. Eyelids symmetrical without lesions, discharge, or swelling. ENT: Bilateral TM's WNL, External ear normal to inspection, no mastoid TTP, swelling, or erythema, Nasal turbinates WNL, no nasal discharge. Normal dentition, Posterior pharynx WNL, no exudate. Chest: RRR, Normal S1, S2, distal pulses intact. Questionable muffled heart sounds, no rub. Resp: Lungs clear to auscultation bilaterally, no wheezes, rales, or rhonchi. Abdomen: Soft, non-distended, Normoactive bowel sounds all 4 quads. Musculoskeletal: Normal gait, 5/5 strength to all four extremities. Skin: No suspicious rashes or lesions. Capillary refill less than 2 sec. Neurologic: Cranial nerves II-XII intact. Alert and oriented x 3. Motor: No deficits noted. Sensory: Intact bilaterally all 4 extremities. Reflexes: DTR's intact bilaterally.. Hematologic/Lymphatic: No ecchymosis, no lymphadenopathy. Course <Regina Garvin NP - Last Filed: 09/07/22 16:28> Vital Signs Vital signs: Vital Signs Temperature 36.7 C 09/07/22 12:34 Pulse 103 H 09/07/22 12:34 Respiratory Rate 18 09/07/22 12:34 Blood Pressure 112/77 09/07/22 12:34 Pulse Oximetry 98 09/07/22 12:34 Temperature 36.7 C 09/07/22 12:34 Temperature Source Oral 09/07/22 12:34 Pulse 103 H 09/07/22 12:34 Respiratory Rate 18 09/07/22 12:42 Respiratory Effort 09/07/22 12:42 Respiratory Depth Normal 09/07/22 12:42 Respiratory Pattern Normal 09/07/22 12:42 Blood Pressure 112/77 09/07/22 12:34 Pulse Oximetry 98 09/07/22 12:34 Oxygen Delivery Method Room Air 09/07/22 12:34 Oxygen Flow Rate 0 09/07/22 12:34 Pain Level 2 09/07/22 12:34 Sign Out <Regina Garvin NP - Last Filed: 09/07/22 16:28> Sign Out Data: Sign Out Comment: Pending fluid swab, reevaluation after Toradol and disposition. Last updated by Regina Garvin NP at 09/07/22 16:27
[2022-09-07] MEDS: Aspirin 81 MG CHEW 324 MG CH (13:31)
[2022-09-07 13:36] LABS: Abs Immature Grans 0.02 10^3/uL (0.0-0.06); Absolute Basophil Count 0.03 10^3/uL (0.0-0.2); Absolute Eosinophil Count 0.09 10^3/uL (0.0-0.7); Absolute Lymphocyte Count 0.88 10^3/uL (1.2-3.4); Absolute Monocyte Count 1.04 10^3/uL (0.1-0.8); Basophils % 0.4; Eosinophils % 1.1; HCT 36.2 % (36.0-46.0); HGB 11.4 g/dL (11.2-15.7); Immature Grans % 0.2; Lymphocytes % 10.4; MCH 29.1 pg (27.0-33.0); MCHC 31.5 % (32.0-36.0); MCV 92 fL (80-95); MPV 9.3 fL (8.0-11.0); Monocytes % 12.3; Neutrophils % 75.6; Platelet Count 379 10^3/uL (130-400); RBC 3.92 10^6/uL (3.93-5.22); RDW 12.9 % (11.7-14.6); WBC 8.46 10^3/uL (4.4-10.8)
[2022-09-07 13:38] LABS: ESR 57 mm/hr (0-30)
[2022-09-07 14:04] LABS: C-Reactive Protein 14.49 mg/dL (0.0-0.3)
[2022-09-07 14:05] LABS: ALT 15 U/L (14-59); AST 24 U/L (15-37); Albumin 3.1 g/dL (3.4-5.0); Alkaline Phosphatase 103 U/L (46-116); Anion Gap 6.5 mmol/L (3-11); BUN 15 mg/dL (7-18); Bilirubin, Total 0.6 mg/dL (0.2-1.0); CO2 29.5 mmol/L (21.0-32.0); CREATININE 0.6 mg/dL (0.55-1.02); Calcium 9.2 mg/dL (8.5-10.1); Chloride 100 mmol/L (98-107); Estimated GFR 100.17 (mL/min/1.73m2); Glucose 123 mg/dL (74-106); Potassium 4.2 mmol/L (3.5-5.1); Sodium 136 mmol/L (136-145); Total Protein 7.5 g/dL (6.4-8.2); Troponin I < 50 ng/L (<or=60)
[2022-09-07 14:15] LABS: Magnesium 2.1 mg/dL (1.8-2.4); NT-proBNP 784 pg/mL (<300)
[2022-09-07 15:56] LABS: Troponin I < 50 ng/L (<or=60)
[2022-09-07] MEDS: Ketorolac 15 MG/ML VIAL IVP (16:11)
[2022-09-07 16:18] LABS: Bilirubin Negative (Negative); Blood Trace-intact (Negative); Clarity Clear (Clear); Glucose Negative (Negative); Ketones Negative (Negative); Leukocyte Esterase Negative (Negative); Nitrite Negative (Negative); Urobilinogen 0.2 EU/dL (Up TO 0.2); pH 7.5 (5-8)
[2022-09-07 16:21] LABS: Bacteria Negative HPF (Negative); C & S Indicated? No; Casts Negative LPF (Negative); Crystals Negative HPF (Negative); Epithelial Cells Rare HPF (Negative); Mucus Negative (Negative); RBC 0-2 HPF (0-2); WBC 0-2 HPF (0-5)
[2022-09-07 16:54] LABS: COVID-19 PCR Negative (Negative); Influenza A PCR Negative (Negative); Influenza B PCR Negative (Negative); RSV PCR Negative (Negative)
[2022-09-07 16:58] LABS: Source Nasopharynx
--- NOTE | 2022-09-07 18:02 | NUR.NOTE ---
pt ambulatory with a steady gait at time of discharge
[2022-09-08 11:28] LABS: Lyme Ab w Rflx to Lyme Confirm Negative (Negative)
[2022-09-09 15:45] LABS: Anaplasma phagocytophilum Negative (Negative); B. miyamotoi PCR Negative (Negative); Babesia divergens/MO-1 Negative (Negative); Babesia duncani Negative (Negative); Babesia microti Negative (Negative); Ehrlichia chaffeensis Negative (Negative); Ehrlichia ewingii/canis Negative (Negative); Ehrlichia muris eauclairensis Negative (Negative)
== END 2022-09-07 17:48 | disposition home or self-care (01) ==
PROVIDERS: Registered Nurse Emergency; Emergency Provider Physician Assistant; PCP Family Medicine
DX: R07.9 Chest pain, unspecified (principal); R06.02 Shortness of breath; M25.512 Pain in left shoulder; Z20.822 Contact with and (suspected) exposure to COVID-19
CPT/HCPCS: 80053; 85652; 87637; 87798; 93005; 96374; 99284; 71046; 81003; 81015; 83735; 83880; 84484; 85025; 86140; 86618; 93010; 99285; J1885

== ENCOUNTER 2022-09-10 00:35 | Outpatient (CLI) | payer BC, SELFPAY ==
--- NOTE | 2022-09-10 12:38 | DI.MAMMO_ITS ---
Exam(s) MAMMO SCREENING EXAM: MAMMO SCREENING CLINICAL HISTORY: SCREENING, Z12.39. TECHNIQUE: Bilateral full field digital CC and MLO mammographic images were obtained with 3D tomosyn thesis and utilizing computer aided detection (CAD). COMPARISON: Prior mammograms were reviewed. FINDINGS: There has been no significant change in the appearance and distribution of the fibroglandular tissue which is again noted to be dense.. There are no CAD designations. There are no new spiculated masses nor malignant appearing microcalcification groups. Benign macro calcifications again noted in both breasts. There is no significant architectural distortion nor skin thickening-retraction. IMPRESSION: No radiographic evidence of malignancy. BI-RADS Category 1 - Negative Breast Density - Category D - Extremely dense Breast density Category C or D implies that the patient has dense breast tissue. Dense breast tissue can make it harder to find cancer on a mammogram. Dense breast tissue is also associated with an incr eased risk of breast cancer. This information about the result of the mammogram report was provided to the patient to raise their awareness. Use this report when you speak with the patient about their risks for breast cancer, which includes their family history. At that time, you may recommend additional screening tests (Ultrasoun d or MRI) as these tests may add significant information. A negative radiographic report should not delay biopsy if a dominant or clinically suspicious mass is present. Up to ten percent of cancers are not identified on mammography. A negative report may reinforce clinical impression. Adenosis and dense breasts may obscure an underlying neoplasm. False positive reports average 6 to 10%. Patient will receive a letter notifying them of these results.
== END 2022-09-10 00:55 ==
LOC: DI 00:35
PROVIDERS: PCP Family Medicine; Visit Provider Family Medicine
DX: Z12.31 Encounter for screening mammogram for malignant neoplasm of breast (principal); R92.8 Other abnormal and inconclusive findings on diagnostic imaging of breast
CPT/HCPCS: 77063; 77067

== ENCOUNTER 2022-10-20 15:23 | Outpatient (REF) | payer BC, SELFPAY ==
[2022-10-20 19:54] LABS: Bilirubin Negative (Negative); Blood Trace-intact (Negative); Clarity Clear (Clear); Glucose Negative (Negative); Ketones Negative (Negative); Leukocyte Esterase Negative (Negative); Nitrite Negative (Negative); Specific Gravity 1.015 (1.005-1.025); Urobilinogen 0.2 mg/dL (Up to 0.2)
[2022-10-20 20:00] LABS: Bacteria Negative HPF (Negative); C & S Indicated? No; Casts Negative LPF (Negative); Crystals Negative HPF (Negative); Epithelial Cells Rare HPF (Negative); Mucus Negative (Negative); Other Cells Negative (Negative); RBC 0-2 HPF (0-2); WBC 0-2 HPF (0-5)
== END 2022-10-20 15:24 | disposition home or self-care (01) ==
LOC: NCHCN 15:23
PROVIDERS: PCP Family Medicine; Visit Provider Family Medicine
DX: R35.0 Frequency of micturition (principal)
CPT/HCPCS: 81003; 81015

== ENCOUNTER 2022-10-22 11:19 | Outpatient (CLI) | payer BC, SELFPAY ==
--- NOTE | 2022-10-22 11:03 | DI.RAD_ITS ---
Exam(s) XR HIP RT COMPLETE AP PELVIS EXAM: XR HIP RT COMPLETE AP PELVIS CLINICAL HISTORY: RT HIP PAIN M25.551 STEROID USE Z79.52, INCLUDE FROG LEG, R/O OSTEONECROSIS. TECHNIQUE: 2D digital imaging was performed of the right hip. Two images were obtained. AP pelvis a nd lateral right hip views were obtained. COMPARISON: No exams were available for comparison FINDINGS: BONES: No acute fracture is present. No bony destructive lesion is seen. No radiographic evidence of osteonecrosis. JOINTS: No dislocation present. There are degenerative changes seen in the hips bilaterally with join t space narrowing and acetabular spurring present. There are moderate degenerative changes seen in t he lower lumbar spine. SOFT TISSUE: There is stool seen throughout the colon which may represent constipation. Surgical cli ps are seen in the pelvis. IMPRESSION: 1. No radiographic evidence to suggest osteonecrosis. 2. Degenerative changes of the hips. 3. Stool in the colon which may represent constipation. DATA REPOSITORY: RADIATION DOSE DELIVERED:
== END 2022-10-22 11:39 ==
LOC: DI 11:24
PROVIDERS: PCP Family Medicine; Visit Provider Family Medicine
DX: M25.551 Pain in right hip (principal); Z79.52 Long term (current) use of systemic steroids; M16.0 Bilateral primary osteoarthritis of hip
CPT/HCPCS: 73502

== ENCOUNTER 2022-11-03 08:56 | Outpatient (REF) | payer BC, SELFPAY ==
[2022-11-03 15:06] LABS: Anion Gap 5.8 mmol/L (3-11); BUN 14 mg/dL (7-18); CO2 33.2 mmol/L (21.0-32.0); CREATININE 0.8 mg/dL (0.55-1.02); Calcium 9.7 mg/dL (8.5-10.1); Chloride 100 mmol/L (98-107); Estimated GFR 82.23 (mL/min/1.73m2); Glucose 86 mg/dL (74-106); Potassium 4.3 mmol/L (3.5-5.1); Sodium 139 mmol/L (136-145)
== END 2022-11-03 08:57 | disposition home or self-care (01) ==
LOC: NCHCN 08:56
PROVIDERS: PCP Family Medicine; Visit Provider Family Medicine
DX: R10.9 Unspecified abdominal pain (principal)
CPT/HCPCS: 80048

== ENCOUNTER 2022-11-26 00:26 | Outpatient (CLI) | payer BC, SELFPAY ==
[2022-11-26] MEDS: Barium Sulfate 2% W/V-Berry Smoothie 450 ML BTL 900 ML PO (12:47)
[2022-11-26] MEDS: Normal Saline Flush 10 ML SYR IVP (15:05)
[2022-11-26] MEDS: Omnipaque 350 MG/ML 500 ML BTL-Imaging package 100 ML IJ (15:05)
[2022-11-26] MEDS: Normal Saline - Diluent 50 ML VIAL IJ (15:06)
--- NOTE | 2022-11-26 15:09 | DI.CT_ITS ---
Exam(s) CT ABDOMEN PELVIS W EXAM: CT ABDOMEN PELVIS W CLINICAL HISTORY: ABD PAIN, R10.9 HX DIVERTICULOSIS, PERSISTENT LT ABD PAIN. TECHNIQUE: Imaging Protocol: Axial computed tomography images with coronal and sagittal reformatted images were created and reviewed CONTRAST MATERIAL: Intravenous: Omnipaque-350 100cc Oral: None COMPARISON: CT CT CHEST PE CTA from 08/27/2022 FINDINGS: VISUALIZED LUNG BASES: No nodules nor pleural effusions evident. ABDOMEN: There is no ascites. LIVER: There are few small CIS in the liver measuring up to 4 mm. No dilated intrahepatic ducts. GALLBLADDER/BILIARY: No obvious gallbladder pathology. CBD is not dilated. PANCREAS: No evidence of pancreatic mass nor dilatation of the pancreatic duct. SPLEEN: Spleen is not enlarged. No obvious intrasplenic lesions. Splenic and portal veins are paten t. ADRENALS: There are no significant adrenal masses. KIDNEYS:No cysts evident. No solid renal masses. No calculi nor hydronephrosis.. ABDOMINAL AORTA: Abdominal aorta is not enlarged. LYMPH NODES:There is prominent para-aortic adenopathy. These are matted enlarged and centrally hypod ense lymph nodes. Ranging up to 4 cm. ABDOMINAL WALL: No evidence of significant anterior abdominal wall nor inguinal hernia. GI: There is no evidence of bowel obstruction, free air, nor abscess. PELVIS: GI: No evidence of appendicitis.No evidence of sigmoid diverticulitis. LYMPH NODES: There is no intrapelvic nor inguinal adenopathy. REPRODUCTIVE: Uterus surgically absent. No abnormal adnexal masses. No free fluid. URINARY BLADDER: No calculi nor obvious masses evident OSSEOUS: No fractures and no significant osseous lesions. Other: Relative hypodensity in the bilateral common femoral veins, possibly just related to admixture artifact but cannot exclude intraluminal thrombosis of the femoral veins. IMPRESSION: 1. There is gross para-aortic adenopathy in the abdomen. Either metastatic or possibly lymphoma. Sp jane size is normal. 2. Subtle hypodensity in the common femoral arteries. Cannot exclude possibility of venous thrombosi s. Recommend DVT Doppler study both legs. Discussed by phone with referring physician 11/26/2022 3:35 p.m. RADIATION DOSE DELIVERED: 529.8mGy.cm Total DLP DATA REPOSITORY: All CT scans at this facility are submitted to the National Radiology Data Registry (NRDR) Dose Index Registry (DIR) with the [employer] (A[employer]). RADIATION OPTIMIZATION: All CT scans at this facility use at least one of these dose optimization te chniques: automated exposure control; mA and/or kV adjustment per patient size (includes targeted exa ms where dose is matched to clinical indication); or iterative reconstruction.
== END 2022-11-26 00:46 ==
LOC: DI 00:27
PROVIDERS: PCP Family Medicine; Visit Provider Family Medicine
DX: R10.9 Unspecified abdominal pain (principal)
CPT/HCPCS: 74177

== ENCOUNTER 2022-11-30 12:54 | Outpatient (CLI) | payer BC, SELFPAY ==
[2022-11-30 09:15] LABS: HCT 44.1 % (36.0-46.0); HGB 14.4 g/dL (11.2-15.7); MCH 29.1 pg (27.0-33.0); MCHC 32.7 % (32.0-36.0); MCV 89 fL (80-95); MPV 8.5 fL (8.0-11.0); Platelet Count 435 10^3/uL (130-400); RBC 4.94 10^6/uL (3.93-5.22); RDW 14.8 % (11.7-14.6); RDW-SD 48.1 fL; WBC 9.11 10^3/uL (4.4-10.8)
[2022-11-30 09:50] LABS: ALT 30 U/L (14-59); AST 32 U/L (15-37); Albumin 3.7 g/dL (3.4-5.0); Alkaline Phosphatase 90 U/L (46-116); Anion Gap 8.2 mmol/L (3-11); BUN 19 mg/dL (7-18); Bilirubin, Total 0.6 mg/dL (0.2-1.0); CO2 28.8 mmol/L (21.0-32.0); CREATININE 0.8 mg/dL (0.55-1.02); Calcium 9.3 mg/dL (8.5-10.1); Chloride 102 mmol/L (98-107); Estimated GFR 82.23 (mL/min/1.73m2); Glucose 77 mg/dL (74-106); LDH 297 U/L (81-234); Potassium 3.7 mmol/L (3.5-5.1); Sodium 139 mmol/L (136-145); Total Protein 7.9 g/dL (6.4-8.2)
[2022-12-02 13:10] LABS: Beta-2-Microglobulin 2.02 mcg/mL
== END 2022-11-30 12:55 | disposition home or self-care (01) ==
LOC: LBO 12:55
PROVIDERS: PCP Family Medicine; Visit Provider Family Medicine
DX: R59.1 Generalized enlarged lymph nodes (principal)
CPT/HCPCS: 36415; 80053; 85027; 82232; 83615

== ENCOUNTER 2022-12-03 09:03 | Day surgery (SDC) | payer BC, SELFPAY ==
--- NOTE | 2022-12-02 21:57 | PDOC.DSDIS_ITS ---
Date of service: 12/03/22 Time of Service: 11:09 Discharge Plan Disposition Patient Disposition: Home Condition: Good Discharge Details Reason For Visit: colon scope Attending Provider: Alissa Simpson Primary Care Provider: Hien Montiel Home Meds and New Rx's Prescriptions: Continued polyethylene glycol 3350 [Miralax] 17 gram/dose powder 17 g PO DAILY ibuprofen 400 mg tablet 400 mg PO QHS melatonin 300 mcg tablet 0.3 mg PO HS PRN myriam seed oil-omega 3-6-9 1,000 mg (580 mg) capsule 1 cap PO DAILY flaxseed Powder 1 pwd PO DAILY prednisone 10 mg tablet 5 mg PO DAILY cholecalciferol (vitamin D3) 50 mcg (2,000 unit) capsule 50 mcg PO DAILY vitamin B xwoswo-Z-FV-zinc cit 0.8-50 mg tablet 1 tab PO DAILY colchicine 0.6 mg tablet 1 tab PO BID Patient Comments: Take 1 tablet by mouth twice a day for 4 weeks Discontinued polyethylene glycol 3350 17 gram/dose powder 238 g PO ONCE Qty: 238 0RF Rx Instructions: take per colonoscopy instructions bisacodyl [Dulcolax (bisacodyl)] 5 mg tablet,delayed release (DR/EC) 5 mg PO ONCE Qty: 4 0RF Rx Instructions: take per colonoscopy instructions Discharge Instructions Additional Instructions: [facility]SU Colonoscopy Post- Op Instructions Instructions for Everyone who is given Anesthesia: For your safety, please do the following for the next t wenty-four (24) hours: *Do Not operate a motor vehicle (car, truck, motorcycle, etc.) *Do Not drink alcoholic beverages or use any recreational drugs for the first 24 hours or while taking pain medications. The medications in your body may have a reaction that can be dangerous. *Do Not make any important decisions or sign any important papers. Findings: x1 small polyp minor diverticular Dx Follow up: F/u Dr. Saleem in 2 wks time December 17 11:30 1. No lifting over 20 pounds or strenuous activity for the first 24 hours after your procedure. After 24 hours there are no restrictions on your activity but you may feel fatigued for a few days. 2. After you arrive home you may have a light meal and return to your normal diet as you can tolerate it without feeling sick to your stomach. 3. You may have a bloated, gaseous feeling in your belly (abdomen) after a colonoscopy. Passing gas and belching will help. Walking or lying down on your left side with your knees flexed may relieve the discomfort. Call the office at [phone] (Office) or [phone] (Hospital) right away if you notice any of the following: a.Vomiting of blood or ?coffee ground stools?. b.Rectal bleeding 1Tbsp, blood clots or continuous bleeding. c.Severe belly (abdominal) pain. d.A hard distended belly (abdomen) and an inability to pass gas. 4. Please don?t expect to have a normal BM (bowel movement) for 2-3 days after your procedure. 5. If there are questions regarding the findings of your procedure, please contact your doctor 6. If you are unable to contact your doctor with a problem, contact the hospital at [phone]. 7. Continue all your regular medications unless directed otherwise. I understand the above instructions and have no questions. Signature of Patient or Adult Escort Name of Responsible Adult Escort Signature of Nurse Date/Time Activity:: see above Diet:: see above Discharge Orders Discharge Orders: Discharge Order (Routine); Ordered 12/03/22 Ordered By: Alissa Simpson DS: Diagnosis Discharge Diagnosis (1) Adenomatous colon polyp: Status: Acute Asessment and Plan: Post [place] Note/Eval The patient is seen and examined after their colonoscopy.? The patient has been able to pass gas.? They are not having abdominal pain.? They have been able to tolerate liquids and a snack.? They do not have any nausea or vomiting.? They are not having any chest pain or shortness of breath.??? They are not having any rectal bleeding..? Their vital signs have been stable-see nursing notes. We discussed findings during their colonoscopy, and any biopsies that were done/polyps that were removed. The patient will be sent a letter with any biopsy results, and when to repeat the colonoscopy.-see discharge instructions. Patient was given explicit instructions to follow-up regarding colonoscopy-refer to discharge instructions.? We reviewed resumption of medications. Patient verbalized understanding and discharged in stable and satisfactory condition- See nursing notes. (2) Diverticula of colon: Status: Acute
[2022-12-03] VITALS (8 sets, daily range): BP systolic 105–127; BP diastolic 63–90; PULSE 64–84; RESP 14–20; TEMP 36.4–37; O2SAT 100; BMI 17.5
--- NOTE | 2022-12-03 09:16 | W.ANESPRE ---
General Info Date of Service Date Performed: 12/03/22 Height: 5 ft 4 in Weight: 46.4 kg Body Mass Index (BMI): 17.5 Surgical Procedure: Operation Date: 12/03/22 10:05 Proposed Procedure Side Surgeon theodore Simpson, DO Meds Allergies and Home Medications Allergies Allergy/AdvReac Type Severity Reaction Status Date / Time No Known Allergies Allergy Verified 11/30/22 07:57 Home Medication Medication Instructions Recorded myriam seed oil-omega 3-6-9 1,000 mg 1 cap PO DAILY 06/29/22 (580 mg) capsule flaxseed 1 pwd PO DAILY 06/29/22 colchicine 0.6 mg tablet 1 tab PO BID 09/07/22 cholecalciferol (vitamin D3) 50 50 mcg PO DAILY 11/30/22 mcg (2,000 unit) capsule ibuprofen 400 mg tablet 400 mg PO QHS 11/30/22 melatonin 300 mcg tablet 0.3 mg PO HS PRN 11/30/22 polyethylene glycol 3350 17 17 g PO DAILY 11/30/22 gram/dose oral powder (Miralax) prednisone 10 mg tablet 5 mg PO DAILY 11/30/22 vitamin B complex with C-folic 1 tab PO DAILY 11/30/22 acid 0.8 mg-zinc citrate 50 mg tablet Current Visit Medications: Current Medications Generic Name Dose Route Start Last Admin Trade Name Magdielq PRN Reason Stop Dose Admin Hyoscyamine Sulfate 0.125 mg 12/03/22 09:48 Hyoscyamine 0.125 Mg Sl/Oral/Chew SL DIRECTED PRN Ringer's Solution 1,000 mls @ 80 mls/hr 12/03/22 06:00 IV 01/01/23 23:59 [facility] IV Miscellaneous Supplies 1 each 12/03/22 06:00 Iv Access IV 01/01/23 23:59 DIRECTED ISABEL Ondansetron HCl 4 mg 12/03/22 09:48 Ondansetron 4 Mg/2 Ml Vial IVP Q4H PRN PRN Nausea / Vomiting Sodium Chloride 0 ml 12/03/22 06:00 Normal Saline Flush 10 Ml Syr IV 01/01/23 23:59 PRN PRN Sodium Chloride 0 ml 12/03/22 06:00 Normal Saline 10 Ml Vial IJ 01/01/23 23:59 DIRECTED PRN Sterile Water 0 ml 12/03/22 06:00 Water,Injection,Sterile 10 Ml Vial IJ 01/01/23 23:59 DIRECTED PRN [facility] Active Problems Active Problems: Problem Status Onset Code Intra-abdominal lymphadenopathy R59.0 Pericarditis I31.9 Change in bowel habits R19.4 Abdominal pain R10.9 Cervical lymphadenopathy R59.0 Lymphadenopathy R59.1 Dysfunction of right rotator cuff M67.911 Contracture, right elbow M24.521 Right wrist pain M25.531 Trigger thumb, right thumb 11/23/17 M65.311 Trigger thumb, left thumb 01/11/18 M65.312 Tendinitis of left rotator cuff M75.82 Displaced fracture of olecranon process of right ulna with intra-articular extension S52.031A Medical History Medical History Acute head injury Per patient mild headache from fall 01/19/22. 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 Oculopharyngeal muscular dystrophy dysphagia, CAN NOT LAY FLAT ASPIRATION RISK. EFFECTS MUSCLES IN ESOPHAGUS. Oculopharyngeal muscular dystrophy Pre-diabetes Weakness Per patient she has weakness in her thighs. Surgical History Surgical History Abdominal hysterectomy 11/17 Herniated Disc Repair L 5 & 6 2006 History of colonoscopy History of eye surgery Recent surgery for droopy eye lids, still has stitches per patient. Oophrectomy, Both for CA of the endometriosis 11/17 Tobacco Smoking/Tobacco Use Status: Former Tobacco Use Alcohol Alcohol Intake: current Alcohol intake frequency: other Substance Use Substance use: Never Substance use type: does not use Vital Signs and Lab Results Vital Signs Most Recent Vital Signs in EMR: Most Recent Vital Signs Temp Pulse Resp BP Pulse Ox 36.5 C 70 18 121/79 100 12/03/22 09:09 12/03/22 09:09 12/03/22 09:09 12/03/22 09:09 12/03/22 09:09 Lab Results Blood Type / Crossmatch: No Data to Display Complete Blood Count: White Blood Count 9.11 10^3/uL (4.4-10.8) 11/30/22 09:02 Red Blood Count 4.94 10^6/uL (3.93-5.22) 11/30/22 09:02 Hemoglobin 14.4 g/dL (11.2-15.7) 11/30/22 09:02 Hematocrit 44.1 % (36.0-46.0) 11/30/22 09:02 Platelet Count 435 10^3/uL (130-400) H 11/30/22 09:02 Complete Metabolic Panel: Sodium 139 mmol/L (136-145) 11/30/22 09:02 Potassium 3.7 mmol/L (3.5-5.1) 11/30/22 09:02 Chloride 102 mmol/L (98-107) 11/30/22 09:02 Carbon Dioxide 28.8 mmol/L (21.0-32.0) 11/30/22 09:02 BUN 19 mg/dL (7-18) H 11/30/22 09:02 Creatinine 0.8 mg/dL (0.55-1.02) 11/30/22 09:02 Est GFR (CKD-EPI 2020) 82.23 (mL/min/1.73m2) 11/30/22 09:02 Calcium 9.3 mg/dL (8.5-10.1) 11/30/22 09:02 Albumin 3.7 g/dL (3.4-5.0) 11/30/22 09:02 Glucose 77 mg/dL (74-106) 11/30/22 09:02 Liver Function Panel: Alanine Aminotransferase (ALT/SGPT) 30 U/L (14-59) 11/30/22 09:02 Aspartate Amino Transf (AST/SGOT) 32 U/L (15-37) 11/30/22 09:02 Coagulation Panel: No Data to Display Cardiac Panel: No Data to Display Arterial Blood Gas: No Data to Display Venous Blood Gas: No Data to Display Pancreas Panel: No Data to Display Thyroid Panel: No Data to Display Infectious Disease: No Data to Display Blood Cultures: No Data to Display Toxicology Panel: No Data to Display Imaging and Studies Imaging and Studies Study information below may be from another EMR and interpreted by another provider. Please see original notes in EMR for more complete details. CT Summary: 2019: scaring at both lung apices, mild tree-in-bud type densities in the medial aspect of the right lower lobe. Pulmonary Function Summary: 2019: normal. Anesthesia Assessment and Plan Anesthesia History Personal History: Delayed Emergence Family History: No Family History of Anesthesia Complications Exercise Tolerance Exercise Tolerance: Metabolic Equivalents>4 Pertinent Negatives Pertinent Negatives: No Symptoms of GERD Cardiac & Pulmonary Exam Cardiac Exam: Normal S1/S2 Heart Sounds Pulmonary Exam: Clear Bilateral Breath Sounds Implantable Cardiac Device Does patient have a Pacemaker or an ICD?: No Airway Exam Known Difficult Airway: No Mallampati Class: 3 Mouth Opening: Narrow (< 3cm) Thyromental Distance: Less than 3 cm Neck Range of Motion: Limited ROM Neck Circumference: Normal Teeth Condition: Normal Dentition ASA Classification ASA Score: ASA 3 Emergency Case?: No NPO Status NPO Status: NPO Clears >2 hours, Solids >8 hours Anesthesia Plan Resuscitation Status: Full Code Anesthesia Technique: General Anesthesia Airway Planned: Endotracheal Tube Monitors Used: Standard Monitors Preoperative Comments:: Plan tdday: GETA with intubation with HOB >20, will extubate awake. Previous anesthetic plan: Preoperative Comments:: 61 yo female with recent fall striking her head (no LOC) and fracturing her elbow here for an ORIF. Sig PMHx: dermatomyositis, pharyngeal muscular dystrophy, former smoker, With her neuromuscular disorders she does sleep with a wedge to prevent pooling of secretions - was getting a cough at night. Plan: GAETT with HOB @ >20, extubate more on the awake side. Regional discussed with surgeon, local by surgeon, and rescue block if needed.
[2022-12-03] MEDS: Lactated Ringers 1,000 ML 80 ML IV (09:35)
--- NOTE | 2022-12-03 10:29 | BOWEL_PTH ---
PATIENT: Bhavna Reece LOC: [facility] U#:[id number] AGE/SX: 62/F ROOM: RE12/03/[address]: Alissa Simpson : 1960 BED: DIS: 12/03/2022 SPEC #: [id number] RECD: 12/03/22 12:39 STATUS: SHIVANI REJacob #: [id number] KIMBERLY: 12/03/22 10:[address]: Alissa Simpson DEPT: Surgical Specimen RECD BY: Ayanna Simon ENTERED: 12/03/22 12:42 SP TYPE: Bowel OTHR DR: Hien Montiel Tissues: 1 - BIOPSY BOWEL 2 - BIOPSY BOWEL 3 - BIOPSY BOWEL 4 - BIOPSY BOWEL 5 - BIOPSY BOWEL 6 - BIOPSY BOWEL 7 - BIOPSY BOWEL Procedures: GROSS AND MICRO LEVEL 4 Comments: [id number]
--- NOTE | 2022-12-03 10:57 | W.PM.OP ---
Date of service: 12/03/22 Time of Service: 10:57 Operative Note Operative Note DATE OF PROCEDURE: 12/03/22 PRE-OP DIAGNOSIS: change in bowels habits /enlarged lymph nodes. POST-OP DIAGNOSIS: other (Diverticula and polyps) SURGEON: Alissa Simpson ANESTHESIA TYPE: General LMA/ETT Refer to Anesthesia Record ESTIMATED BLOOD LOSS: 1 PATHOLOGY: other COMPLICATIONS: None Patient was transported to: same day Patient's condition: stable Procedure Description: After informed consent was obtained the patient was taken to the procedure room and placed in a left decubitous position. Monitors were applied and a time out was done. The patients name, date of , procedure, allergies to medications and metal in their body was reviewed. General anesthesia was admitted per the department of anesthesia for airway protection due to her medical conditions. A rectal exam was done. External exam was normal. Internal exam revealed no palpable masses. The scope was then introduced and retrofelexed. NO internal hemorrhoids were identified. The scope was then advanced to the cecum with some difficulty. We did have to use abdominal pressure to advance the scope. The prep was BBPS 2 in all segments for total of 6. the TI and appendiceal orifice were identified. The scope was then slowly retracted over 17 minutes back into the rectum. She has numerous small mouth diverticuli in the sigmoid colon. These do carry all the way over to the transverse colon, but are less in number. There is no signs of active bleeding infection. She has a 0.75 cm flat polyp at 50 centimeters that is removed with a cold biopsy forcep. Random biopsies are taken at the cecum, 80 cm, 50 cm, 40 cm, 20 cm in the rectum. Otherwise the colon is normal, appearance to the mucosa and vascular pattern. the scope was removed and the patient was woken up and taken back to Same day surgery in stable condition. The patient tolerated the procedure well and there were no immediate complications. Follow up: The patient should follow up in 7 years unless they develop changes in bowel habits or other new gastrointestinal complaints.
--- NOTE | 2022-12-03 12:14 | W.ANESPOSTOP ---
Postoperative Evaluation Date, Time and Location Date Performed: 12/03/22 Time Performed: 11:45 Patient Location: Day Surgery Unit Vital Signs Most Recent Imported Vital Signs: Most Recent Vital Signs Temp Pulse Resp BP Pulse Ox 37.0 C 84 16 105/71 100 12/03/22 11:46 12/03/22 11:46 12/03/22 11:46 12/03/22 11:46 12/03/22 11:46 Pain Score Most Recent Pain Score: Most Recent Pain Score Pain Level 1 12/03/22 11:46 Assessment Mental Status: Awake (Alert & Oriented to Patient Baseline) Airway and Respiratory Function: Patent airway with normal (patient baseline) respiratory exam Cardiovascular Function: Hemodynamically Stable Hydration Status: Adequately Hydrated Nausea & Vomiting: No Nausea or Vomiting Pain: Pain is tolerable per patient Peripheral Nerve Block: Patient did not receive a nerve block Postoperative Comments:: Slight split to patients upper right lip. Discussed with the patient, was not during intubation, most likely with ETT was pulled/manipulating tissue at the end of the case. Patient reported that it was fine and she denied any questions.
== END 2022-12-03 12:30 | disposition home or self-care (01) ==
PROVIDERS: PCP Family Medicine; Visit Provider Surgery
PROC: 0DJD8ZZ Inspection of Lower Intestinal Tract, Via Natural or Artificial Opening Endoscopic (ICD-10-PCS; CPT 45378; principal; 2022-12-03 10:00)
DX: R19.4 Change in bowel habit; R59.9 Enlarged lymph nodes, unspecified; K63.5 Polyp of colon; K57.30 Diverticulosis of large intestine without perforation or abscess without bleeding; K63.89 Other specified diseases of intestine
CPT/HCPCS: 45380; 88305; J1885; J2405; J2704

== ENCOUNTER 2023-01-14 12:16 | Outpatient (REF) | payer BC, SELFPAY ==
[2023-01-14 16:18] LABS: ALT 24 U/L (14-59); AST 26 U/L (15-37); Albumin 3.3 g/dL (3.4-5.0); Alkaline Phosphatase 107 U/L (46-116); Anion Gap 8.5 mmol/L (3-11); BUN 19 mg/dL (7-18); Bilirubin, Total 0.3 mg/dL (0.2-1.0); CO2 29.5 mmol/L (21.0-32.0); CREATININE 0.7 mg/dL (0.55-1.02); Calcium 9.1 mg/dL (8.5-10.1); Chloride 101 mmol/L (98-107); Estimated GFR 96.52 (mL/min/1.73m2); Glucose 115 mg/dL (74-106); NT-proBNP 403 pg/mL (<300); Potassium 4.1 mmol/L (3.5-5.1); Sodium 139 mmol/L (136-145); Total Protein 6.9 g/dL (6.4-8.2)
== END 2023-01-14 12:17 | disposition home or self-care (01) ==
LOC: NCHCN 12:16
PROVIDERS: PCP Family Medicine; Visit Provider Family Medicine
DX: R60.0 Localized edema (principal); R06.02 Shortness of breath; Z51.81 Encounter for therapeutic drug level monitoring
CPT/HCPCS: 80053; 83880

== ENCOUNTER 2023-02-11 13:03 | Outpatient (CLI) | payer BC, SELFPAY ==
[2023-02-11 14:30] LABS: Abs Immature Grans 0.01 10^3/uL (0.0-0.06); Absolute Basophil Count 0.04 10^3/uL (0.0-0.2); Absolute Eosinophil Count 0.15 10^3/uL (0.0-0.7); Absolute Lymphocyte Count 1.15 10^3/uL (1.2-3.4); Absolute Monocyte Count 0.65 10^3/uL (0.1-0.8); Absolute Neutrophil Count 3.81 10^3/uL (1.2-6.7); Basophils % 0.7; Eosinophils % 2.6; HCT 33.3 % (36.0-46.0); Immature Grans % 0.2; Lymphocytes % 19.8; MCH 29.3 pg (27.0-33.0); MCV 89 fL (80-95); MPV 8.6 fL (8.0-11.0); Monocytes % 11.2; Neutrophils % 65.5; Platelet Count 423 10^3/uL (130-400); RBC 3.75 10^6/uL (3.93-5.22); RDW 12.8 % (11.7-14.6); RDW-SD 41.7 fL; WBC 5.81 10^3/uL (4.4-10.8)
[2023-02-11 14:44] LABS: ALT 22 U/L (14-59); AST 30 U/L (15-37); Albumin 3.3 g/dL (3.4-5.0); Alkaline Phosphatase 97 U/L (46-116); Anion Gap 10.3 mmol/L (3-11); BUN 16 mg/dL (7-18); Bilirubin, Total 0.3 mg/dL (0.2-1.0); CO2 27.7 mmol/L (21.0-32.0); CREATININE 0.6 mg/dL (0.55-1.02); Calcium 9.5 mg/dL (8.5-10.1); Chloride 101 mmol/L (98-107); Estimated GFR 100.17 (mL/min/1.73m2); Glucose 104 mg/dL (74-106); Potassium 4.4 mmol/L (3.5-5.1); Sodium 139 mmol/L (136-145); Total Protein 7.5 g/dL (6.4-8.2)
[2023-02-11 16:31] LABS: Iron 46 ug/dL (50-170); Total Iron Binding Capacity 331 ug/dL (250-450); Transferrin Sat 14 % (15-50)
[2023-02-11 16:41] LABS: Ferritin 153 ng/mL (8-252)
[2023-02-11 22:45] LABS: CEA 2.2 ng/mL (See Note)
[2023-02-14 10:42] LABS: CA 125 15 U/mL (<30)
[2023-02-14 12:43] LABS: CA 19-9 10 U/mL (<35)
== END 2023-02-11 13:04 | disposition home or self-care (01) ==
LOC: LBO 13:04
PROVIDERS: PCP Family Medicine; Visit Provider Internal Medicine Hematology & Oncology
DX: C80.1 Malignant (primary) neoplasm, unspecified (principal); C54.1 Malignant neoplasm of endometrium; D64.9 Anemia, unspecified; R79.89 Other specified abnormal findings of blood chemistry
CPT/HCPCS: 36415; 80053; 86304; 82378; 82728; 83540; 83550; 85025; 85045; 86301

== ENCOUNTER 2023-02-15 02:28 | Outpatient (CLI) | payer BC, SELFPAY ==
--- NOTE | 2023-02-15 | DI.CT_ITS ---
Exam(s) CT CHEST/ABD/PEL W EXAM: CT CHEST/ABD/PEL W CLINICAL HISTORY: H/O ENDOMETRIAL CA,NOW CA OF UNKNOWN PRIMARY,NEW BASELINE PRIOR TO CHEMO. TECHNIQUE: Imaging Protocol: Axial computed tomography images with coronal and sagittal reformatted images were created and reviewed CONTRAST MATERIAL: Intravenous: Omnipaque 350 Contrast volume:100 ml Oral: Yes. Oral contrast was administered for bowel opacification. COMPARISON: CT CT ABDOMEN PELVIS W from 11/26/2022 FINDINGS: CHEST: LUNGS: There are now multiple noncalcified metastatic nodules in both lung shahid, involving all lobe s of both lungs. The largest noncalcified nodule in the right lung measures 1.2 by 1.0 cm and was no t evident on the uppermost images of the abdominal CT scan 11/26/2022.. The largest nodule in the le ft lung measures 1.1 by 0.9 cm. MEDIASTINUM: There is no hilar nor subcarinal adenopathy. However, there is a prominent mass in the lower left side of the neck which is intimately associated with the left side of the thyroid gland al though the amount of respiratory motion artifact here prevents determining of this is originating the thyroid gland or medial supraclavicular adenopathy compressing the thyroid gland. This mass measure s 3.8 cm AP by 4 cm wide, extending to the medial left supraclavicular region . similar finding is no t seen on the opposite-right side.There is no axillary adenopathy. CARDIAC: Heart size is normal. There is no pericardial effusion.Caliber of the thoracic aorta is wit hin normal limits. OSSEOUS: No significant osseous lesions.No fractures.. ABDOMEN: There is no ascites. LIVER: There are no new ominous focal hepatic lesions nor dilatation of intrahepatic ducts. Tiny madelaine endix cysts again noted. GALLBLADDER/BILIARY: No obvious gallbladder pathology. CBD is not dilated. PANCREAS: No evidence of pancreatic mass nor dilatation of the pancreatic duct. SPLEEN: Spleen is not enlarged. There are no intrasplenic lesions. Splenic and portal veins are osborn nt. ADRENALS: There are no significant adrenal masses. KIDNEYS: No calculi nor hydronephrosis. No solid renal masses. No cysts evident. ABDOMINAL AORTA: Abdominal aorta is not enlarged. However, abdominal aorta is again noted be elevate d off of the vertebral bodies by the extensive xdifmgpqxbxqhjh-ebwf-uwmoau adenopathy, previously shakeel cribed on the CT scan of 11/26/2022. This bulky adenopathy starts just below the level of the pre ao rtic left renal vein and is evident both anteriorly, posteriorly, and on both sides of the aorta, inc reased in the distance between the aorta and IVC and compressing the medial wall of the IVC (there is no thrombus within the IVC). LYMPH NODES: The above described bulky dqyifpcifywnzcp-xxzj-gertpy adenopathy is again noted be centr ally hypodense and exhibits a width of 8.5 cm and maximum AP measurement of 5 cm. It extends to slig htly below the aortic bifurcation level with a craniocaudal measurement of 8.5 cm. ABDOMINAL WALL: No evidence of significant anterior abdominal wall nor inguinal hernia. GI: There is no evidence of bowel obstruction. PELVIS: LYMPH NODES: The above described adenopathy extends only minimally below the aortic bifurcation on th e left side. There is no prominent adenopathy along the course of the common and external iliac berta scar and there is no significant inguinal adenopathy. No obturator adenopathy. There is a density i n the deep left side of the pelvis measuring approximately 3 by 1.8 cm. Difficult to determine if th is is an unopacified bowel loop versus enlarged lymph node. Similar findings is not seen on the righ t side GI: No evidence of appendicitis.No evidence of sigmoid diverticulitis. URINARY BLADDER: No calculi nor masses evident REPRODUCTIVE: Uterus is surgically absent. There are no abnormal adnexal masses OSSEOUS: No significant osseous lesions. No fractures. Chronic disc space narrowing at L4-5 level is again noted. IMPRESSION: 1. Compared to the prior CT scan of 11/26/2022 there are now multiple metastatic nodules both lung fi elds, measuring up to 1.2 cm size. There are no pleural effusions. 2. In addition, there is a bulky mass in the lower left neck intimately associated with the left thyr oid lobe and measuring approximately 4 cm wide by 3.8 cm AP by 3.4 cm cephalocaudal, extending into t he medial left supraclavicular region. I suspect that this is pathologic adenopathy such as Virchow node, more so than intrinsic left thyroid lobe pathology. 3. There is no hilar or subcarinal adenopathy. There is no axillary adenopathy. 4. In the abdomen there is again noted extensive bulky bgkszmmywfbpqzi-lhaa-fkpvxu adenopathy, as was evident on the CT scan of 11/26/2022. This appears to have slightly further increased in size and i s again noted elevate the abdominal aorta off of the vertebral bodies. The spleen itself is not enla rged. 5. Uterus is again noted be surgically absent. 6. There is a deep left pelvic density measuring 3 x 1.8 cm which was not previously present and is probably enlarged lymph node. Less likely represents an unopacified bowel loop. 7. There is no ascites and there are no pleural effusions at this time. 8. There are no lytic nor blastic osseous lesions evident. There are no fractures. RADIATION DOSE DELIVERED: 1,007.7mGy.cm Total DLP DATA REPOSITORY: All CT scans at this facility are submitted to the National Radiology Data Registry (NRDR) Dose Index Registry (DIR) with the [employer] (A[employer]). RADIATION OPTIMIZATION: All CT scans at this facility use at least one of these dose optimization te chniques: automated exposure control; mA and/or kV adjustment per patient size (includes targeted exa ms where dose is matched to clinical indication); or iterative reconstruction.
[2023-02-15] MEDS: Barium Sulfate 2% W/V-Berry Smoothie 450 ML BTL PO (08:48)
[2023-02-15] MEDS: Omnipaque 350 MG/ML 100 ML BTL IJ (10:01)
[2023-02-15] MEDS: Normal Saline Flush 10 ML SYR IVP (10:01)
[2023-02-15] MEDS: Normal Saline - Diluent 50 ML VIAL IJ (10:01)
== END 2023-02-15 02:48 ==
LOC: DI 02:29
PROVIDERS: PCP Family Medicine; Visit Provider Internal Medicine Hematology & Oncology
DX: C54.1 Malignant neoplasm of endometrium; R91.8 Other nonspecific abnormal finding of lung field; Z90.710 Acquired absence of both cervix and uterus; K68.9 Other disorders of retroperitoneum
CPT/HCPCS: 74177; 71260; J3490

== ENCOUNTER 2023-03-04 01:38 | Outpatient (CLI) | payer BC, SELFPAY ==
[2023-03-04 07:27] LABS: Abs Immature Grans 0.02 10^3/uL (0.0-0.06); Absolute Basophil Count 0.02 10^3/uL (0.0-0.2); Absolute Eosinophil Count 0.07 10^3/uL (0.0-0.7); Absolute Monocyte Count 0.68 10^3/uL (0.1-0.8); Absolute Neutrophil Count 2.98 10^3/uL (1.2-6.7); Basophils % 0.4; Eosinophils % 1.5; HCT 35.6 % (36.0-46.0); HGB 11.7 g/dL (11.2-15.7); Immature Grans % 0.4; MCHC 32.9 % (32.0-36.0); MCV 88 fL (80-95); MPV 8.3 fL (8.0-11.0); Monocytes % 14.3; Neutrophils % 62.4; Platelet Count 161 10^3/uL (130-400); RBC 4.03 10^6/uL (3.93-5.22); RDW-SD 42.8 fL; WBC 4.77 10^3/uL (4.4-10.8)
[2023-03-04 07:43] LABS: ALT 19 U/L (14-59); AST 34 U/L (15-37); Albumin 3.6 g/dL (3.4-5.0); Alkaline Phosphatase 104 U/L (46-116); Anion Gap 10.4 mmol/L (3-11); BUN 11 mg/dL (7-18); Bilirubin, Total 0.5 mg/dL (0.2-1.0); CO2 27.6 mmol/L (21.0-32.0); CREATININE 0.7 mg/dL (0.55-1.02); Calcium 9.2 mg/dL (8.5-10.1); Chloride 97 mmol/L (98-107); Estimated GFR 96.52 (mL/min/1.73m2); Glucose 111 mg/dL (74-106); Potassium 4.1 mmol/L (3.5-5.1); Sodium 135 mmol/L (136-145); Total Protein 7.4 g/dL (6.4-8.2)
== END 2023-03-04 01:39 | disposition home or self-care (01) ==
LOC: LBO 01:38
PROVIDERS: PCP Family Medicine; Visit Provider Internal Medicine Hematology & Oncology
DX: C54.1 Malignant neoplasm of endometrium (principal)
CPT/HCPCS: 36415; 80053; 85025

== ENCOUNTER 2023-03-25 09:28 | Outpatient (CLI) | payer MEDICARE, BC, SELFPAY ==
[2023-03-25 08:46] LABS: Eosinophils % 1.1; HCT 34.3 % (36.0-46.0); HGB 11.5 g/dL (11.2-15.7); MCH 30.3 pg (27.0-33.0); MCHC 33.5 % (32.0-36.0); MCV 90 fL (80-95); MPV 7.9 fL (8.0-11.0); Monocytes % 10.9; Neutrophils % 68.7; Platelet Count 282 10^3/uL (130-400); RDW 17.1 % (11.7-14.6); RDW-SD 55.5 fL
[2023-03-25 08:47] LABS: Abs Immature Grans 0.02 10^3/uL (0.0-0.06); Absolute Basophil Count 0.04 10^3/uL (0.0-0.2); Absolute Eosinophil Count 0.05 10^3/uL (0.0-0.7); Absolute Lymphocyte Count 0.81 10^3/uL (1.2-3.4); Absolute Monocyte Count 0.49 10^3/uL (0.1-0.8); Absolute Neutrophil Count 3.09 10^3/uL (1.2-6.7); Basophils % 0.9; Immature Grans % 0.4
[2023-03-25 09:05] LABS: ALT 21 U/L (14-59); AST 32 U/L (15-37); Albumin 3.5 g/dL (3.4-5.0); Alkaline Phosphatase 98 U/L (46-116); Anion Gap 12.2 mmol/L (3-11); BUN 12 mg/dL (7-18); Bilirubin, Total 0.4 mg/dL (0.2-1.0); CO2 25.8 mmol/L (21.0-32.0); CREATININE 0.6 mg/dL (0.55-1.02); Calcium 9.3 mg/dL (8.5-10.1); Chloride 101 mmol/L (98-107); Estimated GFR 99.55 (mL/min/1.73m2); Glucose 95 mg/dL (74-106); Potassium 3.8 mmol/L (3.5-5.1); Sodium 139 mmol/L (136-145); Total Protein 7.4 g/dL (6.4-8.2)
[2023-03-25 10:24] LABS: FREE T4 1.18 ng/dL (0.76-1.46); TSH 2.78 uIU/mL (0.36-3.74)
== END 2023-03-25 09:29 | disposition home or self-care (01) ==
LOC: LBO 09:28
PROVIDERS: PCP Family Medicine; Visit Provider Internal Medicine Hematology & Oncology
DX: C54.1 Malignant neoplasm of endometrium (principal); Z79.899 Other long term (current) drug therapy
CPT/HCPCS: 36415; 80053; 84439; 84443; 85025

== ENCOUNTER 2023-04-15 01:47 | Outpatient (CLI) | payer MEDICARE, BC, SELFPAY ==
[2023-04-15 08:23] LABS: Abs Immature Grans 0.02 10^3/uL (0.0-0.06); Absolute Basophil Count 0.03 10^3/uL (0.0-0.2); Absolute Eosinophil Count 0.03 10^3/uL (0.0-0.7); Absolute Lymphocyte Count 0.71 10^3/uL (1.2-3.4); Absolute Monocyte Count 0.41 10^3/uL (0.1-0.8); Absolute Neutrophil Count 2.93 10^3/uL (1.2-6.7); Basophils % 0.7; Eosinophils % 0.7; HCT 32.9 % (36.0-46.0); HGB 10.9 g/dL (11.2-15.7); Immature Grans % 0.5; Lymphocytes % 17.2; MCH 30.4 pg (27.0-33.0); MCHC 33.1 % (32.0-36.0); MCV 92 fL (80-95); MPV 7.8 fL (8.0-11.0); Monocytes % 9.9; Platelet Count 244 10^3/uL (130-400); RBC 3.59 10^6/uL (3.93-5.22); RDW-SD 62.7 fL; WBC 4.13 10^3/uL (4.4-10.8)
[2023-04-15 08:54] LABS: ALT 23 U/L (14-59); AST 29 U/L (15-37); Albumin 3.4 g/dL (3.4-5.0); Alkaline Phosphatase 97 U/L (46-116); Anion Gap 8.7 mmol/L (3-11); BUN 11 mg/dL (7-18); Bilirubin, Total 0.5 mg/dL (0.2-1.0); CO2 28.3 mmol/L (21.0-32.0); CREATININE 0.7 mg/dL (0.55-1.02); Calcium 9.3 mg/dL (8.5-10.1); Chloride 97 mmol/L (98-107); Estimated GFR 95.92 (mL/min/1.73m2); FREE T4 1.14 ng/dL (0.76-1.46); Glucose 93 mg/dL (74-106); Potassium 4.2 mmol/L (3.5-5.1); Sodium 134 mmol/L (136-145); TSH 0.92 uIU/mL (0.36-3.74); Total Protein 7.2 g/dL (6.4-8.2)
[2023-04-15 09:23] LABS: Iron 51 ug/dL (50-170); Total Iron Binding Capacity 348 ug/dL (250-450); Transferrin Sat 15 % (15-50)
[2023-04-15 09:49] LABS: Ferritin 163 ng/mL (8-252); Vitamin B12 322 pg/mL (193-986)
[2023-04-15 09:52] LABS: Folate > 20.0 ng/mL (8.6-20.0)
[2023-04-15 17:50] LABS: CEA 1.9 ng/mL (See Note)
[2023-04-18 11:37] LABS: CA 125 14 U/mL (<30)
[2023-04-18 12:23] LABS: CA 19-9 11 U/mL (<35)
== END 2023-04-15 01:48 | disposition home or self-care (01) ==
LOC: LBO 01:47
PROVIDERS: PCP Family Medicine; Visit Provider Internal Medicine Hematology & Oncology
DX: C54.1 Malignant neoplasm of endometrium (principal); D64.9 Anemia, unspecified; Z79.899 Other long term (current) drug therapy; C80.1 Malignant (primary) neoplasm, unspecified; R79.89 Other specified abnormal findings of blood chemistry; R97.8 Other abnormal tumor markers
CPT/HCPCS: 36415; 80053; 86304; 82378; 82607; 82728; 82746; 83540; 83550; 84439; 84443; 85025; 85045; 86301

== ENCOUNTER 2023-05-06 03:11 | Outpatient (CLI) | payer MEDICARE, BC, SELFPAY ==
[2023-05-06 07:41] LABS: Abs Immature Grans 0.02 10^3/uL (0.0-0.06); Absolute Basophil Count 0.05 10^3/uL (0.0-0.2); Absolute Eosinophil Count 0.05 10^3/uL (0.0-0.7); Absolute Lymphocyte Count 0.98 10^3/uL (1.2-3.4); Absolute Monocyte Count 0.53 10^3/uL (0.1-0.8); Absolute Neutrophil Count 2.49 10^3/uL (1.2-6.7); Basophils % 1.2; Eosinophils % 1.2; HCT 32.6 % (36.0-46.0); HGB 10.9 g/dL (11.2-15.7); Immature Grans % 0.5; Lymphocytes % 23.8; MCH 31.8 pg (27.0-33.0); MCHC 33.4 % (32.0-36.0); MCV 95 fL (80-95); Monocytes % 12.9; Neutrophils % 60.4; Platelet Count 216 10^3/uL (130-400); RBC 3.43 10^6/uL (3.93-5.22); RDW 20.1 % (11.7-14.6); RDW-SD 70.8 fL; WBC 4.12 10^3/uL (4.4-10.8)
[2023-05-06 08:09] LABS: ALT 28 U/L (14-59); AST 36 U/L (15-37); Albumin 3.7 g/dL (3.4-5.0); Alkaline Phosphatase 94 U/L (46-116); Anion Gap 12.7 mmol/L (3-11); BUN 9 mg/dL (7-18); Bilirubin, Total 0.5 mg/dL (0.2-1.0); CO2 25.3 mmol/L (21.0-32.0); CREATININE 0.6 mg/dL (0.55-1.02); Calcium 9.7 mg/dL (8.5-10.1); Chloride 98 mmol/L (98-107); Estimated GFR 99.55 (mL/min/1.73m2); FREE T4 1.29 ng/dL (0.76-1.46); Glucose 89 mg/dL (74-106); Potassium 4.1 mmol/L (3.5-5.1); Sodium 136 mmol/L (136-145); TSH 3.03 uIU/mL (0.36-3.74); Total Protein 7.5 g/dL (6.4-8.2)
== END 2023-05-06 03:12 | disposition home or self-care (01) ==
LOC: LBO 03:12
PROVIDERS: PCP Family Medicine; Visit Provider Internal Medicine Hematology & Oncology
DX: Z79.899 Other long term (current) drug therapy (principal); C54.1 Malignant neoplasm of endometrium; C80.1 Malignant (primary) neoplasm, unspecified
CPT/HCPCS: 36415; 80053; 84439; 84443; 85025

== ENCOUNTER 2023-05-27 02:00 | Outpatient (CLI) | payer MEDICARE, BC, SELFPAY ==
[2023-05-27 07:43] LABS: Abs Immature Grans 0.01 10^3/uL (0.0-0.06); Absolute Basophil Count 0.03 10^3/uL (0.0-0.2); Absolute Eosinophil Count 0.03 10^3/uL (0.0-0.7); Absolute Lymphocyte Count 0.88 10^3/uL (1.2-3.4); Absolute Monocyte Count 0.39 10^3/uL (0.1-0.8); Absolute Neutrophil Count 1.67 10^3/uL (1.2-6.7); HGB 9.8 g/dL (11.2-15.7); Immature Grans % 0.3; Lymphocytes % 29.2; MCH 33.2 pg (27.0-33.0); MCHC 33.8 % (32.0-36.0); MCV 98 fL (80-95); Neutrophils % 55.5; Platelet Count 197 10^3/uL (130-400); RBC 2.95 10^6/uL (3.93-5.22); RDW 18.2 % (11.7-14.6); RDW-SD 65.9 fL; WBC 3.01 10^3/uL (4.4-10.8)
[2023-05-27 08:08] LABS: ALT 22 U/L (14-59); AST 42 U/L (15-37); Albumin 3.5 g/dL (3.4-5.0); Alkaline Phosphatase 88 U/L (46-116); Anion Gap 8.1 mmol/L (3-11); BUN 11 mg/dL (7-18); Bilirubin, Total 0.5 mg/dL (0.2-1.0); CO2 26.9 mmol/L (21.0-32.0); CREATININE 0.6 mg/dL (0.55-1.02); Calcium 9.5 mg/dL (8.5-10.1); Chloride 99 mmol/L (98-107); Estimated GFR 99.55 (mL/min/1.73m2); FREE T4 1.17 ng/dL (0.76-1.46); Glucose 84 mg/dL (74-106); Potassium 3.7 mmol/L (3.5-5.1); Sodium 134 mmol/L (136-145); TSH 3.64 uIU/mL (0.36-3.74); Total Protein 7.4 g/dL (6.4-8.2)
== END 2023-05-27 02:01 | disposition home or self-care (01) ==
PROVIDERS: PCP Family Medicine; Visit Provider Internal Medicine Hematology & Oncology
DX: Z79.899 Other long term (current) drug therapy (principal)
CPT/HCPCS: 36415; 80053; 84439; 84443; 85025

== ENCOUNTER 2023-06-17 04:06 | Outpatient (CLI) | payer MEDICARE, BC, SELFPAY ==
[2023-06-17 12:13] LABS: Abs Immature Grans 0.02 10^3/uL (0.0-0.06); Absolute Basophil Count 0.03 10^3/uL (0.0-0.2); Absolute Eosinophil Count 0.01 10^3/uL (0.0-0.7); Absolute Monocyte Count 0.46 10^3/uL (0.1-0.8); Absolute Neutrophil Count 3.32 10^3/uL (1.2-6.7); Basophils % 0.6; Eosinophils % 0.2; HCT 24.3 % (36.0-46.0); HGB 7.9 g/dL (11.2-15.7); Immature Grans % 0.4; Lymphocytes % 17.2; MCH 33.3 pg (27.0-33.0); MCHC 32.5 % (32.0-36.0); MCV 103 fL (80-95); MPV 8.9 fL (8.0-11.0); Monocytes % 9.9; Neutrophils % 71.7; Platelet Count 176 10^3/uL (130-400); RBC 2.37 10^6/uL (3.93-5.22); RDW 17.2 % (11.7-14.6); RDW-SD 62.7 fL; WBC 4.64 10^3/uL (4.4-10.8)
[2023-06-17 12:42] LABS: ALT 23 U/L (14-59); AST 38 U/L (15-37); Albumin 3.6 g/dL (3.4-5.0); Alkaline Phosphatase 82 U/L (46-116); BUN 10 mg/dL (7-18); Bilirubin, Total 0.3 mg/dL (0.2-1.0); CREATININE 0.6 mg/dL (0.55-1.02); Calcium 9.6 mg/dL (8.5-10.1); Chloride 101 mmol/L (98-107); Estimated GFR 99.55 (mL/min/1.73m2); FREE T4 1.23 ng/dL (0.76-1.46); Glucose 151 mg/dL (74-106); Potassium 4.2 mmol/L (3.5-5.1); Sodium 136 mmol/L (136-145); Total Protein 7.4 g/dL (6.4-8.2)
== END 2023-06-17 04:07 | disposition home or self-care (01) ==
LOC: LBO 04:06
PROVIDERS: PCP Family Medicine; Visit Provider Internal Medicine Hematology & Oncology
DX: Z79.899 Other long term (current) drug therapy (principal); C80.1 Malignant (primary) neoplasm, unspecified; C54.1 Malignant neoplasm of endometrium
CPT/HCPCS: 36415; 80053; 84439; 84443; 85025

== ENCOUNTER 2023-06-20 20:47 | Outpatient (CLI) | payer MEDICARE, BC, SELFPAY ==
[2023-06-20 13:27] LABS: Abs Immature Grans 0.01 10^3/uL (0.0-0.06); Absolute Basophil Count 0.03 10^3/uL (0.0-0.2); Absolute Eosinophil Count 0.02 10^3/uL (0.0-0.7); Absolute Lymphocyte Count 0.81 10^3/uL (1.2-3.4); Absolute Monocyte Count 0.48 10^3/uL (0.1-0.8); Absolute Neutrophil Count 2.86 10^3/uL (1.2-6.7); Basophils % 0.7; Eosinophils % 0.5; HGB 8.4 g/dL (11.2-15.7); Immature Grans % 0.2; Lymphocytes % 19.2; MCH 35.3 pg (27.0-33.0); MCHC 33.6 % (32.0-36.0); MCV 105 fL (80-95); MPV 8.8 fL (8.0-11.0); Monocytes % 11.4; Platelet Count 201 10^3/uL (130-400); RBC 2.38 10^6/uL (3.93-5.22); RDW 17.5 % (11.7-14.6); RDW-SD 67.1 fL; WBC 4.21 10^3/uL (4.4-10.8)
[2023-06-20 14:03] LABS: Vitamin B12 442 pg/mL (193-986)
== END 2023-06-20 20:48 | disposition home or self-care (01) ==
LOC: LBO 20:49
PROVIDERS: PCP Family Medicine; Visit Provider Internal Medicine Hematology & Oncology
DX: C54.1 Malignant neoplasm of endometrium (principal); Z79.899 Other long term (current) drug therapy
CPT/HCPCS: 36415; 82607; 85025

== ENCOUNTER 2023-07-29 02:11 | Outpatient (CLI) | payer MEDICARE, BC, SELFPAY ==
[2023-07-29 11:32] LABS: Abs Immature Grans 0.03 10^3/uL (0.0-0.06); Absolute Basophil Count 0.03 10^3/uL (0.0-0.2); Absolute Eosinophil Count 0.14 10^3/uL (0.0-0.7); Absolute Lymphocyte Count 0.42 10^3/uL (1.2-3.4); Absolute Monocyte Count 0.58 10^3/uL (0.1-0.8); Absolute Neutrophil Count 3.62 10^3/uL (1.2-6.7); Basophils % 0.6; Eosinophils % 2.9; HCT 30.1 % (36.0-46.0); HGB 9.7 g/dL (11.2-15.7); Immature Grans % 0.6; Lymphocytes % 8.7; MCH 32.4 pg (27.0-33.0); MCHC 32.2 % (32.0-36.0); MCV 101 fL (80-95); Neutrophils % 75.2; Platelet Count 321 10^3/uL (130-400); RBC 2.99 10^6/uL (3.93-5.22); RDW 12.6 % (11.7-14.6); RDW-SD 46.5 fL; Reticulocyte 1.1 % (0.5-2.4); WBC 4.82 10^3/uL (4.4-10.8)
[2023-07-29 12:12] LABS: Ferritin 189 ng/mL (8-252); Folate 12.5 ng/mL (8.6-20.0); Vitamin B12 572 pg/mL (193-986)
[2023-07-29 12:22] LABS: LDH 216 U/L (81-234)
[2023-07-29 12:28] LABS: Iron 35 ug/dL (50-170); Total Iron Binding Capacity 320 ug/dL (250-450); Transferrin Sat 11 % (15-50)
[2023-07-29 13:15] LABS: ALT 17 U/L (14-59); AST 22 U/L (15-37); Albumin 3.6 g/dL (3.4-5.0); Alkaline Phosphatase 79 U/L (46-116); Anion Gap 10.2 mmol/L (3-11); BUN 20 mg/dL (7-18); Bilirubin, Total 0.3 mg/dL (0.2-1.0); CO2 27.8 mmol/L (21.0-32.0); CREATININE 0.9 mg/dL (0.55-1.02); Calcium 9.4 mg/dL (8.5-10.1); Chloride 99 mmol/L (98-107); Estimated GFR 70.95 (mL/min/1.73m2); Glucose 107 mg/dL (74-106); Potassium 4.3 mmol/L (3.5-5.1); Sodium 137 mmol/L (136-145); Total Protein 7.3 g/dL (6.4-8.2)
[2023-07-29 17:18] LABS: FREE T4 1.35 ng/dL (0.76-1.46); TSH 0.96 uIU/mL (0.36-3.74)
[2023-08-02 10:12] LABS: Haptoglobin 344 mg/dL (32-197)
== END 2023-07-29 02:12 | disposition home or self-care (01) ==
LOC: LBO 02:12
PROVIDERS: PCP Family Medicine; Visit Provider Internal Medicine Hematology & Oncology
DX: D53.9 Nutritional anemia, unspecified (principal); Z79.899 Other long term (current) drug therapy
CPT/HCPCS: 36415; 80053; 82607; 82728; 82746; 83010; 83540; 83550; 83615; 84439; 84443; 85025; 85045

== ENCOUNTER 2023-09-09 02:49 | Outpatient (CLI) | payer MEDICARE, BC, SELFPAY ==
[2023-09-09 12:54] LABS: Abs Immature Grans 0.01 10^3/uL (0.0-0.06); Absolute Basophil Count 0.03 10^3/uL (0.0-0.2); Absolute Eosinophil Count 0.11 10^3/uL (0.0-0.7); Absolute Lymphocyte Count 0.54 10^3/uL (1.2-3.4); Absolute Monocyte Count 0.51 10^3/uL (0.1-0.8); Absolute Neutrophil Count 3.82 10^3/uL (1.2-6.7); Basophils % 0.6; Eosinophils % 2.2; HCT 32.6 % (36.0-46.0); HGB 10.9 g/dL (11.2-15.7); Immature Grans % 0.2; Lymphocytes % 10.8; MCH 31.4 pg (27.0-33.0); MCHC 33.4 % (32.0-36.0); MCV 94 fL (80-95); MPV 8.5 fL (8.0-11.0); Monocytes % 10.2; Platelet Count 137 10^3/uL (130-400); RBC 3.47 10^6/uL (3.93-5.22); RDW 14.5 % (11.7-14.6); RDW-SD 48.6 fL; WBC 5.02 10^3/uL (4.4-10.8)
[2023-09-09 13:17] LABS: ALT 20 U/L (14-59); AST 21 U/L (15-37); Albumin 3.6 g/dL (3.4-5.0); Alkaline Phosphatase 86 U/L (46-116); Anion Gap 7.4 mmol/L (3-11); BUN 16 mg/dL (7-18); Bilirubin, Total 0.5 mg/dL (0.2-1.0); CO2 29.6 mmol/L (21.0-32.0); CREATININE 0.7 mg/dL (0.55-1.02); Calcium 9.3 mg/dL (8.5-10.1); Chloride 98 mmol/L (98-107); Estimated GFR 95.92 (mL/min/1.73m2); FREE T4 0.96 ng/dL (0.76-1.46); Glucose 76 mg/dL (74-106); Potassium 4.3 mmol/L (3.5-5.1); Sodium 135 mmol/L (136-145); TSH 4.29 uIU/mL (0.36-3.74); Total Protein 7.6 g/dL (6.4-8.2)
== END 2023-09-09 02:50 | disposition home or self-care (01) ==
LOC: LBO 02:50
PROVIDERS: PCP Family Medicine; Visit Provider Nurse Practitioner Family
DX: Z79.899 Other long term (current) drug therapy (principal); C54.1 Malignant neoplasm of endometrium
CPT/HCPCS: 36415; 80053; 81003; 84439; 84443; 85025

== ENCOUNTER 2023-09-16 02:49 | Outpatient (CLI) | payer MEDICARE, BC, SELFPAY | END 2023-09-16 02:50 | disposition home or self-care (01) | LOC: LBO 02:50 | PROVIDERS: PCP Family Medicine; Visit Provider Internal Medicine Hematology & Oncology | DX: R53.83 Other fatigue (principal) | CPT/HCPCS: 36415; 82533 ==

== ENCOUNTER 2023-09-30 01:44 | Outpatient (CLI) | payer MEDICARE, BC, SELFPAY ==
[2023-09-30 10:41] LABS: Abs Immature Grans 0.02 10^3/uL (0.0-0.06); Absolute Basophil Count 0.03 10^3/uL (0.0-0.2); Absolute Eosinophil Count 0.13 10^3/uL (0.0-0.7); Absolute Lymphocyte Count 0.52 10^3/uL (1.2-3.4); Absolute Monocyte Count 0.56 10^3/uL (0.1-0.8); Absolute Neutrophil Count 5.19 10^3/uL (1.2-6.7); Basophils % 0.5; HCT 35.1 % (36.0-46.0); HGB 11.9 g/dL (11.2-15.7); Immature Grans % 0.3; Lymphocytes % 8.1; MCH 31.6 pg (27.0-33.0); MCHC 33.9 % (32.0-36.0); MCV 93 fL (80-95); MPV 8.1 fL (8.0-11.0); Monocytes % 8.7; Neutrophils % 80.4; Platelet Count 165 10^3/uL (130-400); RBC 3.77 10^6/uL (3.93-5.22); RDW 15.5 % (11.7-14.6); RDW-SD 52.3 fL; WBC 6.45 10^3/uL (4.4-10.8)
[2023-09-30 11:09] LABS: ALT 22 U/L (14-59); AST 18 U/L (15-37); Alkaline Phosphatase 118 U/L (46-116); BUN 20 mg/dL (7-18); Bilirubin, Total 0.4 mg/dL (0.2-1.0); CREATININE 0.7 mg/dL (0.55-1.02); Calcium 9.8 mg/dL (8.5-10.1); Chloride 97 mmol/L (98-107); Estimated GFR 95.92 (mL/min/1.73m2); FREE T4 0.97 ng/dL (0.76-1.46); Glucose 99 mg/dL (74-106); Potassium 4.3 mmol/L (3.5-5.1); Sodium 135 mmol/L (136-145); TSH 4.11 uIU/mL (0.36-3.74); Total Protein 8.2 g/dL (6.4-8.2)
== END 2023-09-30 01:45 | disposition home or self-care (01) ==
LOC: LBO 01:44
PROVIDERS: PCP Family Medicine; Visit Provider Internal Medicine Hematology & Oncology
DX: Z79.899 Other long term (current) drug therapy (principal)
CPT/HCPCS: 36415; 80053; 81003; 84439; 84443; 85025

== ENCOUNTER 2023-10-21 02:39 | Outpatient (CLI) | payer MEDICARE, BC, SELFPAY ==
[2023-10-21 11:26] LABS: ALT 25 U/L (14-59); AST 24 U/L (15-37); Albumin 3.4 g/dL (3.4-5.0); Alkaline Phosphatase 101 U/L (46-116); Anion Gap 8.8 mmol/L (3-11); BUN 18 mg/dL (7-18); Bilirubin, Total 0.4 mg/dL (0.2-1.0); CO2 27.2 mmol/L (21.0-32.0); CREATININE 0.6 mg/dL (0.55-1.02); Calcium 9.1 mg/dL (8.5-10.1); Chloride 100 mmol/L (98-107); Estimated GFR 99.55 (mL/min/1.73m2); Glucose 98 mg/dL (74-106); Potassium 4.1 mmol/L (3.5-5.1); Sodium 136 mmol/L (136-145); Total Protein 7.6 g/dL (6.4-8.2)
== END 2023-10-21 02:40 | disposition home or self-care (01) ==
PROVIDERS: PCP Family Medicine; Visit Provider Nurse Practitioner Family
DX: C80.1 Malignant (primary) neoplasm, unspecified (principal); C54.1 Malignant neoplasm of endometrium
CPT/HCPCS: 36415; 80053

== ENCOUNTER → 2023-10-27 10:59 | Outpatient (BNVA) | payer MEDICARE, BC, SELFPAY | PROVIDERS: PCP Family Medicine; Referring Provider Family Medicine; Visit Provider Podiatrist | DX: B35.1 Tinea unguium (principal); Q84.6 Other congenital malformations of nails; M79.672 Pain in left foot | CPT/HCPCS: 99213 ==

== ENCOUNTER 2023-10-28 01:58 | Outpatient (CLI) | payer MEDICARE, BC, SELFPAY ==
[2023-10-28 12:09] LABS: ALT 25 U/L (14-59); AST 26 U/L (15-37); Albumin 3.5 g/dL (3.4-5.0); Alkaline Phosphatase 86 U/L (46-116); BUN 22 mg/dL (7-18); Bilirubin, Total 0.4 mg/dL (0.2-1.0); CREATININE 0.7 mg/dL (0.55-1.02); Calcium 9.7 mg/dL (8.5-10.1); Chloride 97 mmol/L (98-107); Estimated GFR 95.92 (mL/min/1.73m2); Glucose 91 mg/dL (74-106); Sodium 134 mmol/L (136-145); Total Protein 7.6 g/dL (6.4-8.2)
== END 2023-10-28 01:59 | disposition home or self-care (01) ==
PROVIDERS: PCP Family Medicine; Visit Provider Nurse Practitioner Family
DX: C54.1 Malignant neoplasm of endometrium
CPT/HCPCS: 36415; 80053

== ENCOUNTER 2023-11-11 01:46 | Outpatient (CLI) | payer MEDICARE, BC, SELFPAY ==
[2023-11-11 12:48] LABS: Abs Immature Grans 0.01 10^3/uL (0.0-0.06); Absolute Basophil Count 0.06 10^3/uL (0.0-0.2); Absolute Lymphocyte Count 0.85 10^3/uL (1.2-3.4); Absolute Neutrophil Count 3.42 10^3/uL (1.2-6.7); Basophils % 1.2; HCT 38.6 % (36.0-46.0); HGB 12.9 g/dL (11.2-15.7); Immature Grans % 0.2; Lymphocytes % 17.2; MCH 32.5 pg (27.0-33.0); MCHC 33.4 % (32.0-36.0); MCV 97 fL (80-95); MPV 8.3 fL (8.0-11.0); Monocytes % 10.1; Neutrophils % 69.3; Platelet Count 195 10^3/uL (130-400); RBC 3.97 10^6/uL (3.93-5.22); RDW 14.4 % (11.7-14.6); RDW-SD 51.7 fL; WBC 4.94 10^3/uL (4.4-10.8)
[2023-11-11 12:54] LABS: Bilirubin Negative (Negative); Blood Trace-intact (Negative); Clarity Clear (Clear); Glucose Negative (Negative); Ketones Trace mg/dL (Negative); Leukocyte Esterase Negative (Negative); Nitrite Negative (Negative); Specific Gravity >= 1.030 (1.005-1.025); Urobilinogen 0.2 mg/dL (Up to 0.2); pH 5.5 (5-8)
[2023-11-11 13:02] LABS: Bacteria Negative HPF (Negative); C & S Indicated? No; Casts 5-10 Hyaline LPF (Negative); Crystals Negative HPF (Negative); Epithelial Cells Rare HPF (Negative); Mucus Moderate (Negative); WBC 0-2 HPF (0-5)
[2023-11-11 13:18] LABS: ALT 39 U/L (14-59); AST 31 U/L (15-37); Albumin 3.7 g/dL (3.4-5.0); Alkaline Phosphatase 82 U/L (46-116); BUN 23 mg/dL (7-18); Bilirubin, Total 0.4 mg/dL (0.2-1.0); CREATININE 0.7 mg/dL (0.55-1.02); Calcium 9.3 mg/dL (8.5-10.1); Chloride 97 mmol/L (98-107); Estimated GFR 95.92 (mL/min/1.73m2); FREE T4 1.29 ng/dL (0.76-1.46); Glucose 125 mg/dL (74-106); Sodium 134 mmol/L (136-145); TSH 1.59 uIU/Ml (0.36-3.74)
== END 2023-11-11 01:47 | disposition home or self-care (01) ==
LOC: LBO 01:46
PROVIDERS: PCP Family Medicine; Visit Provider Internal Medicine Hematology & Oncology
DX: Z79.899 Other long term (current) drug therapy (principal); C80.1 Malignant (primary) neoplasm, unspecified
CPT/HCPCS: 36415; 80053; 81003; 81015; 84439; 84443; 85025

== ENCOUNTER → 2023-11-28 11:02 | Outpatient (BNVA) | payer MEDICARE, BC, SELFPAY | PROVIDERS: PCP Family Medicine; Referring Provider Family Medicine; Visit Provider Podiatrist | DX: L08.9 Local infection of the skin and subcutaneous tissue, unspecified (principal); C54.1 Malignant neoplasm of endometrium; L03.032 Cellulitis of left toe; L60.0 Ingrowing nail; L03.90 Cellulitis, unspecified; M79.672 Pain in left foot | CPT/HCPCS: 11730 ==

== ENCOUNTER 2023-11-28 12:48 | Outpatient (REF) | payer MEDICARE, BC, SELFPAY | END 2023-11-28 12:49 | disposition home or self-care (01) | LOC: LBN 12:48 | PROVIDERS: PCP Family Medicine; Visit Provider Podiatrist | DX: Q84.6 Other congenital malformations of nails (principal) | CPT/HCPCS: 87070; 87075; 87205 ==

== ENCOUNTER → 2023-12-12 13:57 | Outpatient (BNVA) | payer MEDICARE, BC, SELFPAY | PROVIDERS: PCP Family Medicine; Referring Provider Family Medicine; Visit Provider Podiatrist | DX: L03.032 Cellulitis of left toe; L60.0 Ingrowing nail; M79.672 Pain in left foot | CPT/HCPCS: 99213 ==

== ENCOUNTER → 2023-12-26 13:48 | Outpatient (BNVA) | payer MEDICARE, BC, SELFPAY | PROVIDERS: PCP Family Medicine; Referring Provider Family Medicine; Visit Provider Podiatrist | DX: L08.9 Local infection of the skin and subcutaneous tissue, unspecified; C54.1 Malignant neoplasm of endometrium; L03.032 Cellulitis of left toe; L60.0 Ingrowing nail; L03.90 Cellulitis, unspecified; M79.672 Pain in left foot | CPT/HCPCS: 99213 ==

== ENCOUNTER 2024-01-06 01:05 | Outpatient (CLI) | payer MEDICARE, BC, SELFPAY ==
[2024-01-06 12:12] LABS: Abs Immature Grans 0.02 10^3/uL (0.0-0.06); Absolute Basophil Count 0.03 10^3/uL (0.0-0.2); Absolute Eosinophil Count 0.05 10^3/uL (0.0-0.7); Absolute Lymphocyte Count 0.82 10^3/uL (1.2-3.4); Absolute Monocyte Count 0.52 10^3/uL (0.1-0.8); Absolute Neutrophil Count 3.51 10^3/uL (1.2-6.7); Basophils % 0.6 %; HCT 39.3 % (36.0-46.0); HGB 13.4 g/dL (11.2-15.7); Immature Grans % 0.4 %; Lymphocytes % 16.6 %; MCH 32.4 pg (27.0-33.0); MCHC 34.1 % (32.0-36.0); MCV 95 fL (80-95); MPV 8.5 fL (8.0-11.0); Monocytes % 10.5 %; Neutrophils % 70.9 %; Platelet Count 203 10^3/uL (130-400); RBC 4.13 10^6/uL (3.93-5.22); RDW 12.8 % (11.7-14.6); RDW-SD 44.9 fL; WBC 4.95 10^3/uL (4.4-10.8)
[2024-01-06 12:36] LABS: ALT 35 U/L (14-59); AST 34 U/L (15-37); Albumin 3.8 g/dL (3.4-5.0); Alkaline Phosphatase 108 U/L (46-116); Anion Gap 9.6 mmol/L (3-11); BUN 23 mg/dL (7-18); Bilirubin, Total 0.6 mg/dL (0.2-1.0); CO2 29.4 mmol/L (21.0-32.0); CREATININE 0.8 mg/dL (0.55-1.02); Calcium 9.9 mg/dL (8.5-10.1); Chloride 97 mmol/L (98-107); Estimated GFR 81.72 (mL/min/1.73m2); Glucose 115 mg/dL (74-106); Potassium 4.5 mmol/L (3.5-5.1); Sodium 136 mmol/L (136-145); TSH 0.03 uIU/Ml (0.36-3.74); Total Protein 8.2 g/dL (6.4-8.2)
[2024-01-06 12:39] LABS: Bilirubin Negative (Negative); Blood Small (Negative); Clarity Clear (Clear); Glucose Negative (Negative); Ketones Negative (Negative); Leukocyte Esterase Negative (Negative); Nitrite Negative (Negative); Specific Gravity >= 1.030 (1.005-1.025); Urobilinogen 0.2 mg/dL (Up to 0.2); pH 5.5 (5-8)
[2024-01-06 13:02] LABS: Epithelial Cells Negative HPF (Negative); WBC Negative HPF (0-5)
[2024-01-06 13:03] LABS: Bacteria Negative HPF (Negative); C & S Indicated? No; Casts 0-2 Hyaline LPF (Negative); Crystals Negative HPF (Negative); Mucus Negative (Negative)
== END 2024-01-06 01:06 | disposition home or self-care (01) ==
LOC: LBO 01:06
PROVIDERS: PCP Family Medicine; Visit Provider Internal Medicine Hematology & Oncology
DX: Z79.899 Other long term (current) drug therapy (principal)
CPT/HCPCS: 36415; 80053; 81003; 81015; 84439; 84443; 85025

== ENCOUNTER 2024-01-10 09:13 | Outpatient (REF) | payer MEDICARE, BC, SELFPAY ==
[2024-01-10 11:01] LABS: PROTEIN 11.9 mg/dL (0.0-11.9); TOTAL PROTEIN,URINE TIMED 261.8 mg/24hr (0.0-149.1); Total Volume 2200 ml
== END 2024-01-10 09:14 | disposition home or self-care (01) ==
LOC: LBN 09:13
PROVIDERS: PCP Family Medicine; Visit Provider Internal Medicine Hematology & Oncology
DX: C54.1 Malignant neoplasm of endometrium (principal)
CPT/HCPCS: 81050; 84155

== ENCOUNTER 2024-01-25 17:07 | Outpatient (REF) | payer MEDICARE, BC, SELFPAY ==
[2024-01-25 19:29] LABS: ESR 32 mm/hr (0-30)
[2024-01-25 19:39] LABS: C-Reactive Protein 2.24 mg/dL (<or=0.5); Creatine Kinase 83 U/L (26-192)
[2024-01-27 15:22] LABS: ANA Interpretation Positive (Negative); ANA Titer Pattern 1:320 Speckled
== END 2024-01-25 17:08 | disposition home or self-care (01) ==
LOC: NCHCN 17:07
PROVIDERS: PCP Family Medicine; Visit Provider Family Medicine
DX: M25.50 Pain in unspecified joint (principal); R79.82 Elevated C-reactive protein (CRP); R70.0 Elevated erythrocyte sedimentation rate
CPT/HCPCS: 82550; 85652; 86038; 86140

== ENCOUNTER → 2024-01-26 14:59 | Outpatient (BNVA) | payer MEDICARE, BC, SELFPAY | PROVIDERS: PCP Family Medicine; Referring Provider Family Medicine; Visit Provider Podiatrist | DX: C54.1 Malignant neoplasm of endometrium; L03.032 Cellulitis of left toe; L60.0 Ingrowing nail; M79.672 Pain in left foot | CPT/HCPCS: 99213 ==

== ENCOUNTER 2024-01-27 01:22 | Outpatient (CLI) | payer MEDICARE, BC, SELFPAY ==
[2024-01-27 12:28] LABS: Abs Immature Grans 0.02 10^3/uL (0.0-0.06); Absolute Basophil Count 0.03 10^3/uL (0.0-0.2); Absolute Eosinophil Count 0.05 10^3/uL (0.0-0.7); Absolute Lymphocyte Count 0.83 10^3/uL (1.2-3.4); Absolute Monocyte Count 0.48 10^3/uL (0.1-0.8); Absolute Neutrophil Count 3.61 10^3/uL (1.2-6.7); Basophils % 0.6 %; HCT 39.5 % (36.0-46.0); HGB 13.1 g/dL (11.2-15.7); Immature Grans % 0.4 %; Lymphocytes % 16.5 %; MCHC 33.2 % (32.0-36.0); MCV 96 fL (80-95); Monocytes % 9.6 %; Neutrophils % 71.9 %; Platelet Count 229 10^3/uL (130-400); RDW 12.1 % (11.7-14.6); RDW-SD 42.5 fL; WBC 5.02 10^3/uL (4.4-10.8)
[2024-01-27 12:52] LABS: ALT 28 U/L (14-59); AST 29 U/L (15-37); Albumin 3.7 g/dL (3.4-5.0); Alkaline Phosphatase 99 U/L (46-116); Anion Gap 10.1 mmol/L (3-11); BUN 18 mg/dL (7-18); Bilirubin, Total 0.51 mg/dL (0.2-1.0); CO2 28.9 mmol/L (21.0-32.0); CREATININE 0.7 mg/dL (0.55-1.02); Calcium 9.9 mg/dL (8.5-10.1); Chloride 97 mmol/L (98-107); Estimated GFR 95.92 (mL/min/1.73m2); FREE T4 1.56 ng/dL (0.76-1.46); Glucose 116 mg/dL (74-106); Potassium 3.9 mmol/L (3.5-5.1); Sodium 136 mmol/L (136-145); TSH 0.03 uIU/Ml (0.36-3.74); Total Protein 8.2 g/dL (6.4-8.2)
[2024-01-27 15:44] LABS: Bilirubin Negative (Negative); Blood Negative (Negative); Clarity Clear (Clear); Glucose Negative (Negative); Ketones Negative (Negative); Leukocyte Esterase Negative (Negative); Nitrite Negative (Negative); Specific Gravity 1.015 (1.005-1.025); Urobilinogen 0.2 mg/dL (Up to 0.2)
== END 2024-01-27 01:23 | disposition home or self-care (01) ==
PROVIDERS: Internal Medicine Hematology & Oncology; PCP Family Medicine; Visit Provider Nurse Practitioner Family
DX: Z79.899 Other long term (current) drug therapy (principal); E87.1 Hypo-osmolality and hyponatremia; C80.1 Malignant (primary) neoplasm, unspecified; C54.1 Malignant neoplasm of endometrium
CPT/HCPCS: 36415; 80053; 81003; 84439; 84443; 85025

== ENCOUNTER 2024-02-21 04:51 | Outpatient (CLI) | payer MEDICARE, BC, SELFPAY ==
[2024-02-24 00:33] LABS: Anaplasma phagocytophilum Negative (Negative); B. miyamotoi PCR Negative (Negative); Babesia divergens/MO-1 Negative (Negative); Babesia duncani Negative (Negative); Babesia microti Negative (Negative); Ehrlichia chaffeensis Negative (Negative); Ehrlichia ewingii/canis Negative (Negative); Ehrlichia muris eauclairensis Negative (Negative)
== END 2024-02-21 04:52 | disposition home or self-care (01) ==
PROVIDERS: PCP Family Medicine; Visit Provider Family Medicine
DX: M25.569 Pain in unspecified knee (principal)
CPT/HCPCS: 36415; 87798

== ENCOUNTER 2024-03-08 04:29 | Outpatient (CLI) | payer MEDICARE, BC, SELFPAY ==
[2024-03-08 14:59] LABS: Abs Immature Grans 0.02 10^3/uL (0.0-0.06); Absolute Basophil Count 0.03 10^3/uL (0.0-0.2); Absolute Eosinophil Count 0.07 10^3/uL (0.0-0.7); Absolute Lymphocyte Count 0.87 10^3/uL (1.2-3.4); Basophils % 0.5 %; Eosinophils % 1.2 %; HCT 37.7 % (36.0-46.0); HGB 13.1 g/dL (11.2-15.7); Immature Grans % 0.3 %; MCH 31.8 pg (27.0-33.0); MCHC 34.7 % (32.0-36.0); MCV 92 fL (80-95); MPV 8.1 fL (8.0-11.0); Monocytes % 6.9 %; Neutrophils % 76.1 %; Platelet Count 189 10^3/uL (130-400); RBC 4.12 10^6/uL (3.93-5.22); RDW 13.7 % (11.7-14.6); RDW-SD 45.5 fL; WBC 5.79 10^3/uL (4.4-10.8)
[2024-03-08 15:39] LABS: ALT 32 U/L (14-59); AST 36 U/L (15-37); Albumin 3.9 g/dL (3.4-5.0); Alkaline Phosphatase 86 U/L (46-116); Anion Gap 8.9 mmol/L (3-11); BUN 16 mg/dL (7-18); Bilirubin, Total 0.75 mg/dL (0.2-1.0); CO2 27.1 mmol/L (21.0-32.0); CREATININE 0.8 mg/dL (0.55-1.02); Calcium 9.9 mg/dL (8.5-10.1); Chloride 92 mmol/L (98-107); Estimated GFR 81.72 (mL/min/1.73m2); FREE T4 0.43 ng/dL (0.76-1.46); Glucose 103 mg/dL (74-106); Potassium 4.1 mmol/L (3.5-5.1); Sodium 128 mmol/L (136-145); TSH 149.77 uIU/Ml (0.36-3.74); Total Protein 8.1 g/dL (6.4-8.2)
== END 2024-03-08 04:30 | disposition home or self-care (01) ==
PROVIDERS: PCP Family Medicine; Visit Provider Internal Medicine Hematology & Oncology
DX: E03.9 Hypothyroidism, unspecified (principal); C54.1 Malignant neoplasm of endometrium
CPT/HCPCS: 36415; 80053; 87798; 81003; 84439; 84443; 85025

== ENCOUNTER 2024-03-09 10:49 | Outpatient (REF) | payer MEDICARE, BC, SELFPAY ==
[2024-03-09 11:11] LABS: Bilirubin Negative (Negative); Blood Trace-intact (Negative); Clarity Clear (Clear); Glucose Negative (Negative); Ketones Negative (Negative); Leukocyte Esterase Negative (Negative); Nitrite Negative (Negative); Specific Gravity 1.015 (1.005-1.025); Urobilinogen 0.2 mg/dL (Up to 0.2); pH 6.5 (5-8)
[2024-03-09 11:18] LABS: Bacteria Negative HPF (Negative); C & S Indicated? No; Casts Negative LPF (Negative); Crystals Negative HPF (Negative); Epithelial Cells Rare HPF (Negative); Mucus Negative (Negative); RBC 0-2 HPF (0-2); WBC Negative HPF (0-5)
== END 2024-03-09 10:50 | disposition home or self-care (01) ==
LOC: LBN 10:49
PROVIDERS: PCP Family Medicine; Visit Provider Internal Medicine Hematology & Oncology
DX: C54.1 Malignant neoplasm of endometrium (principal); R82.998 Other abnormal findings in urine
CPT/HCPCS: 81003; 81015

== ENCOUNTER 2024-03-30 00:40 | Outpatient (CLI) | payer MEDICARE, BC, SELFPAY ==
[2024-03-30 13:13] LABS: Abs Immature Grans 0.02 10^3/uL (0.0-0.06); Absolute Basophil Count 0.04 10^3/uL (0.0-0.2); Absolute Eosinophil Count 0.06 10^3/uL (0.0-0.7); Absolute Lymphocyte Count 0.66 10^3/uL (1.2-3.4); Absolute Monocyte Count 0.45 10^3/uL (0.1-0.8); Absolute Neutrophil Count 3.43 10^3/uL (1.2-6.7); Basophils % 0.9 %; Eosinophils % 1.3 %; HCT 33.3 % (36.0-46.0); HGB 10.8 g/dL (11.2-15.7); Immature Grans % 0.4 %; Lymphocytes % 14.2 %; MCHC 32.4 % (32.0-36.0); MCV 99 fL (80-95); Monocytes % 9.7 %; Neutrophils % 73.5 %; Platelet Count 210 10^3/uL (130-400); RBC 3.38 10^6/uL (3.93-5.22); RDW 15.4 % (11.7-14.6); RDW-SD 56.5 fL; WBC 4.66 10^3/uL (4.4-10.8)
[2024-03-30 13:44] LABS: ALT 20 U/L (14-59); AST 23 U/L (15-37); Albumin 3.9 g/dL (3.4-5.0); Alkaline Phosphatase 100 U/L (46-116); Anion Gap 9.5 mmol/L (3-11); BUN 17 mg/dL (7-18); Bilirubin, Total 0.42 mg/dL (0.2-1.0); CO2 26.5 mmol/L (21.0-32.0); CREATININE 0.7 mg/dL (0.55-1.02); Chloride 96 mmol/L (98-107); Estimated GFR 95.32 (mL/min/1.73m2); FREE T4 1.36 ng/dL (0.76-1.46); Glucose 138 mg/dL (74-106); Sodium 132 mmol/L (136-145); Total Protein 7.9 g/dL (6.4-8.2)
[2024-03-30 14:54] LABS: Reticulocyte 1.8 % (0.5-2.4)
[2024-03-30 15:04] LABS: Iron 58 ug/dL (50-170)
[2024-03-30 15:31] LABS: Ferritin 134 ng/mL (8-252); Folate 15.3 ng/mL (8.6-20.0); Vitamin B12 694 pg/mL (193-986)
== END 2024-03-30 00:41 | disposition home or self-care (01) ==
PROVIDERS: PCP Family Medicine; Visit Provider Internal Medicine Hematology & Oncology
DX: E03.9 Hypothyroidism, unspecified (principal); C54.1 Malignant neoplasm of endometrium; D53.9 Nutritional anemia, unspecified
CPT/HCPCS: 36415; 80053; 82607; 82728; 82746; 83540; 84439; 84443; 85025; 85045

== ENCOUNTER 2024-12-17 18:07 | Outpatient (REF) | payer MEDICARE, BC, SELFPAY ==
[2024-12-21 10:40] LABS: Lyme Ab w Rflx to Lyme Confirm Negative (Negative)
== END 2024-12-17 18:08 | disposition home or self-care (01) ==
LOC: NCHCN 18:07
PROVIDERS: PCP Family Medicine; Visit Provider Family Medicine
DX: A69.20 Lyme disease, unspecified (principal)
CPT/HCPCS: 87798; 86618

== ENCOUNTER 2025-01-16 14:42 | Outpatient (REF) | payer MEDICARE, BC, SELFPAY ==
[2025-01-18 10:03] LABS: Lyme Ab w Rflx to Lyme Confirm Negative (Negative)
== END 2025-01-16 14:43 | disposition home or self-care (01) ==
LOC: NCHCN 14:42
PROVIDERS: PCP Family Medicine; Visit Provider Family Medicine
DX: A69.20 Lyme disease, unspecified (principal)
CPT/HCPCS: 86618

== ENCOUNTER 2025-05-31 03:22 | Outpatient (CLI) | payer MEDICARE, BC, SELFPAY ==
[2025-05-31 09:30] LABS: TSH 2.30 uIU/mL (0.36-3.74)
[2025-05-31 23:37] LABS: T3,Free 3.0 pg/mL (2.8-5.3)
[2025-06-05 15:36] LABS: T3 (Triiodothyronine) Reverse 25 ng/dL (10-24)
== END 2025-05-31 03:23 | disposition home or self-care (01) ==
PROVIDERS: PCP Family Medicine; Visit Provider Family Medicine
DX: E03.9 Hypothyroidism, unspecified (principal)
CPT/HCPCS: 36415; 82533; 84439; 84443; 84481; 84482